=== PATIENT | male | born 1930 | race Caucasian/White ===

== ENCOUNTER 2017-07-24 19:19 | Inpatient (IN) | payer MEDICARE ==
[~2017-07-24] VITALS: Ht 172.7 cm; Wt 68.0 kg
[~2017-07-24 19:19] MED LIST: LEVO75TA42 PO
[2017-07-24 19:21] VITALS: BP 147/67; PULSE 72; RESP 18; TEMP 99.2; O2SAT 96
[2017-07-24] MEDS ORDERED: CLAR10CA3 PO (19:51)
[2017-07-24] MEDS ORDERED: SODIUM CHLORIDE 0.9% FLUSH 10 ML FLUSH IVF PRN (20:00)
--- NOTE | 2017-07-24 20:03 | PD ---
HPI Chief Complaint: Fall Time Seen by Provider: 19:45 Travel History International Travel<30 days: No Contact w/Intl Traveler<30days: No Traveled to known affect area: No History of Present Illness HPI 87-year-old male presents accompanied by his for evaluation after fall. The patient reports that yesterday he was standing on a carpeted floor when he fell backwards and landed on his back and hit his head. No loss of consciousness. He is complaining of very mild pain to the posterior elbows bilaterally as well as left shoulder. He did not really want to come to be evaluated by his convinced him to. His reports that she is concerned because he has been acting confused today. Specifically she reports that he has been more combative, seemed to be having difficulty walking straight, was confusing objects in the house. He appears to be back at baseline now according to the . The patient is denying any confusion, headache, chest pain or shortness of breath, nausea or vomiting, abdominal pain. Reported history includes kyphosis, scoliosis, blepharospasm, squamous cell carcinoma of the skin, no other significant past medical history. No other complaints at this time. [facility] Past Medical History Thyroid Disease: Yes Past Surgical History Abdominal Surgery: Yes (HERNIA) Other Surgery: Yes (SKIN CANCER ) Social History Alcohol Use: No Tobacco Use: No Substance Use: No Allergies-Medications (Allergen,Severity, Reaction): Coded Allergies: No Known Allergies (Unverified , 07/24/17) Reported Meds & Prescriptions Reported Meds & Active Scripts Active Reported Claritin (Loratadine) 10 Mg Cap 10 Mg PO DAILY Review of Systems Except as stated in HPI: all other systems reviewed are Neg Physical Exam Narrative GENERAL: This is an elderly-appearing male who is in no acute distress, answering questions appropriately. SKIN: Warm and dry. HEAD: Atraumatic. Normocephalic. EYES: Pupils equal and round. No scleral icterus. No injection or drainage. ENT: No nasal bleeding or discharge. Mucous membranes pink and moist. NECK: Trachea midline. No JVD. CARDIOVASCULAR: Regular rate and rhythm. No murmur appreciated. RESPIRATORY: No accessory muscle use. Clear to auscultation. Breath sounds equal bilaterally. GASTROINTESTINAL: Abdomen soft, non-tender, nondistended. Hepatic and splenic margins not palpable. MUSCULOSKELETAL: Kyphosis is noted. The patient has no obvious upper or lower extremity strength deficit. He has minor contusions to the posterior elbows. Minor associated tenderness to palpation. NEUROLOGICAL: Awake and alert. No obvious cranial nerve deficits. Motor grossly within normal limits. Normal speech. Data Data Last Documented VS Vital Signs Date Time Temp Pulse Resp B/P (MAP) Pulse Ox O2 Delivery O2 Flow Rate FiO2 07/24/17 21:07 96 Room Air 07/24/17 19:21 99.2 72 18 Orders Orders Electrocardiogram (07/24/17 19:56) Prothrombin Time / Inr (Pt) (07/24/17 19:56) Act Partial Throm Time (Ptt) (07/24/17 19:56) Complete Blood Count With Diff (07/24/17 19:56) Basic Metabolic Panel (Bmp) (07/24/17 19:56) Creatine Kinase (Cpk) (07/24/17 19:56) Troponin I (07/24/17 19:56) Urinalysis - C+S If Indicated (07/24/17 19:56) Ct Brain W/O Iv Contrast(Rout) (07/24/17 19:56) Chest, Single Ap (07/24/17 19:56) Ecg Monitoring (07/24/17 19:56) Iv Access Insert/Monitor (07/24/17 19:56) Oximetry (07/24/17 19:56) Sodium Chloride 0.9% Flush (Ns Flush) (07/24/17 20:00) Elbow, Limited (Ap&Lat) (07/24/17 ) Elbow, Limited (Ap&Lat) (07/24/17 ) Ct Cerv Spine W/O Contrast (07/24/17 ) Spine, Thoracic-Ap/Lat/Sw(3vw) (07/24/17 ) Spine, Lumbar - Ltd (Ap & Lat) (07/24/17 ) Admit Order (Ed Use Only) (07/24/17 21:43) CKMB (07/24/17 20:45) CKMB% (07/24/17 20:45) Labs Laboratory Tests Test 07/24/17 20:45 07/24/17 21:33 White Blood Count 4.9 TH/MM3 Red Blood Count 4.17 MIL/MM3 Hemoglobin 13.6 GM/DL Hematocrit 41.3 % Mean Corpuscular Volume 98.9 FL Mean Corpuscular Hemoglobin 32.7 PG Mean Corpuscular Hemoglobin Concent 33.1 % Red Cell Distribution Width 14.6 % Platelet Count 128 TH/MM3 Mean Platelet Volume 9.1 FL Neutrophils (%) (Auto) 75.4 % Lymphocytes (%) (Auto) 20.2 % Monocytes (%) (Auto) 4.0 % Eosinophils (%) (Auto) 0.1 % Basophils (%) (Auto) 0.3 % Neutrophils # (Auto) 3.7 TH/MM3 Lymphocytes # (Auto) 1.0 TH/MM3 Monocytes # (Auto) 0.2 TH/MM3 Eosinophils # (Auto) 0.0 TH/MM3 Basophils # (Auto) 0.0 TH/MM3 CBC Comment DIFF FINAL Differential Comment Prothrombin Time 11.4 SEC Prothromb Time International Ratio 1.0 RATIO Activated Partial Thromboplast Time 28.7 SEC Blood Urea Nitrogen 23 MG/DL Creatinine 0.84 MG/DL Random Glucose 89 MG/DL Calcium Level 8.4 MG/DL Sodium Level 138 MEQ/L Potassium Level 4.2 MEQ/L Chloride Level 104 MEQ/L Carbon Dioxide Level 27.7 MEQ/L Anion Gap 6 MEQ/L Estimat Glomerular Filtration Rate 87 ML/MIN Total Creatine Kinase 958 U/L Creatine Kinase MB 23.3 NG/ML Creatine Kinase MB % 2.4 % Troponin I LESS THAN 0.02 NG/ML Urine Color YELLOW Urine Turbidity CLEAR Urine pH 6.5 Urine Specific [place] 1.012 Urine Protein NEG mg/dL Urine Glucose (UA) NEG mg/dL Urine Ketones NEG mg/dL Urine Occult Blood NEG Urine Nitrite NEG Urine Bilirubin NEG Urine Urobilinogen LESS THAN 2.0 MG/DL Urine Leukocyte Esterase NEG Urine RBC 1 /hpf Microscopic Urinalysis Comment CATH-CULT NOT IND MDM Medical Decision Making Medical Screen Exam Complete: Yes Emergency Medical Condition: Yes Medical Record Reviewed: Yes Interpretation(s) CT brain reveals CONCLUSION: 1. Diffuse cerebral atrophy. 2. Moderate to severe periventricular and subcortical white matter small vessel ischemic changes bilaterally. 3. No acute infarct, acute hemorrhage, mass effect or extra-axial fluid collections. 4. Chronic right-sided maxillary and ethmoid sinusitis as well as mucosal thickening involving the right frontal sinus. CONCLUSION: 1. Small left apical pneumothorax. 2. Severe left neural foraminal narrowing at C4-5 and moderate bilateral foraminal narrowing at C3-4 and C5-6. 3. Cervical spondylosis from C3 through C6. 4. No acute fracture or prevertebral soft tissue swelling. CONCLUSION: 1. Small left apical pneumothorax measuring 5 mm. 2. Acute fractures involving the lateral aspects of the fifth, sixth and eighth ribs. 3. Cardiomegaly. Differential Diagnosis Closed head injury, intracranial hemorrhage, CVA, TIA, UTI, electrolyte imbalance Narrative Course 87-year-old male presents after mechanical fall yesterday. Today he was acting more confused and off balance according to the although he is now back at baseline. 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 He is currently awake, alert, oriented with no obvious focal neurologic deficits on initial examination. Plan is for basic lab work, x -ray imaging of the elbows, CT of the brain, cervical spine, chest x-ray. The patient was placed on ECG monitoring. X-ray imaging reveals a small left apical pneumothorax and rib fractures on the left side fifth, sixth, eighth ribs. He is not hypoxic or tachypneic. He will remain on pulse oximetry. X-rays of the thoracic and lumbar spine have been added on as well. Lab work reveals CK 958, calcium 8.4, BUN 23, otherwise unremarkable, 1 L of IV fluids have been ordered. Diagnosis Primary Impression: Intermittent confusion Additional Impressions: Pneumothorax Qualified Codes: S27.0XXA - Traumatic pneumothorax, initial encounter Rib fractures Qualified Codes: S22.42XA - Multiple fractures of ribs, left side, initial encounter for closed fracture Admitting Information Admitting Physician Requests: Bonilla Hill Jul 24, 2017 20:03
--- NOTE | 2017-07-24 20:27 | RADRPT ---
EXAM DATE/TIME: 07/24/2017 20:10 [facility] COMPARISON: No previous studies available for comparison. INDICATIONS : Trauma, fall. Patient hit back of head on ground. RADIATION DOSE: 65.73 CTDIvol (mGy) MEDICAL HISTORY : Thyroid disease SURGICAL HISTORY : Hernia ENCOUNTER: Initial ACUITY: 2 days PAIN SCALE: 7/10 LOCATION: Cranial TECHNIQUE: Multiple contiguous axial images were obtained of the head. Using automated exposure control and adj ustment of the mA and/or kV according to patient size, radiation dose was kept as low as reasonably a chievable to obtain optimal diagnostic quality images. DICOM format image data is available electro nically for review and comparison. FINDINGS: Diffuse cerebral atrophy is noted. Moderate to severe periventricular and subcortical white matter s mall vessel ischemic changes are noted bilaterally. There is no acute infarct, acute hemorrhage, mid line shift or extra-axial fluid collections. There is opacification of the right maxillary sinus as well as the right ethmoid air cells and mucosal thickening involving the right frontal sinus. There is also thickening of the wall of the right maxillary sinus. The findings are suggestive of chronic sinusitis on the right. CONCLUSION: 1. Diffuse cerebral atrophy. 2. Moderate to severe periventricular and subcortical white matter small vessel ischemic changes bila terally. 3. No acute infarct, acute hemorrhage, mass effect or extra-axial fluid collections. 4. Chronic right-sided maxillary and ethmoid sinusitis as well as mucosal thickening involving the ri ght frontal sinus. Dinesh Del Toro MD on July 24, 2017 at 20:17 Board Certified Radiologist. This report was verified electronically.
--- NOTE | 2017-07-24 20:46 | RADRPT ---
EXAM DATE/TIME: 07/24/2017 20:21 [facility] COMPARISON: No previous studies available for comparison. INDICATIONS : Right elbow pain post fall. MEDICAL HISTORY : Thyroid disease SURGICAL HISTORY : Hernia repair ENCOUNTER: Initial ACUITY: 2 days PAIN SCORE: 5/10 LOCATION: Right upper extremity FINDINGS: Two view examination of the right elbow demonstrates no joint effusion, fracture or dislocation. Mil d soft tissue swelling is noted. Bony mineralization is normal. CONCLUSION: No acute displaced fracture or dislocation. Mild soft tissue swelling. Dinesh Del Toro MD on July 24, 2017 at 20:44 Board Certified Radiologist. This report was verified electronically.
--- NOTE | 2017-07-24 20:47 | RADRPT ---
EXAM DATE/TIME: 07/24/2017 20:18 [facility] COMPARISON: No previous studies available for comparison. INDICATIONS : Right chest pain post fall. MEDICAL HISTORY : Thyroid disease SURGICAL HISTORY : Hernia repair ENCOUNTER: Initial ACUITY: 2 days PAIN SCORE: 7/10 LOCATION: Right chest FINDINGS: There is a small left apical pneumothorax measuring 5 mm in size. Acute fractures are noted involvin g the lateral aspects of the left fifth, sixth and eighth ribs. The heart is mildly prominent. The l ungs are clear. CONCLUSION: 1. Small left apical pneumothorax measuring 5 mm. 2. Acute fractures involving the lateral aspects of the fifth, sixth and eighth ribs. 3. Cardiomegaly. Dinesh Del Toro MD on July 24, 2017 at 20:41 Board Certified Radiologist. This report was verified electronically.
--- NOTE | 2017-07-24 20:50 | RADRPT ---
EXAM DATE/TIME: 07/24/2017 20:10 [facility] COMPARISON: No previous studies available for comparison. INDICATIONS : Trauma, fall. Patient hit back of head on ground. RADIATION DOSE: 21.51 CTDIvol (mGy) MEDICAL HISTORY : Thyroid SURGICAL HISTORY : Hernia ENCOUNTER: Initial ACUITY: 1 day PAIN SCALE: 0/10 LOCATION: Neck TECHNIQUE: Volumetric scanning of the cervical spine was performed. Multiplanar reconstructions in the sagittal, coronal and oblique axial planes were performed. Using automated exposure control and adjustment o f the mA and/or kV according to patient size, radiation dose was kept as low as reasonably achievable to obtain optimal diagnostic quality images. DICOM format image data is available electronically f or review and comparison. FINDINGS: There is a small left apical pneumothorax. There is no acute fracture or prevertebral soft tissue sw elling within the cervical spine. Cervical spondylosis is noted from C3 through C6. Moderate bilate ral foraminal narrowing is noted at C3-4 predominantly related to diffuse disc osteophyte complex as well as uncovertebral joint spurring. Severe left neural foraminal narrowing is noted at C4-5. Moder ate bilateral foraminal narrowing is also noted at C5-6. No spinal stenosis is noted. The bony rela tionship and alignment between C1 and C2 is well maintained. CONCLUSION: 1. Small left apical pneumothorax. 2. Severe left neural foraminal narrowing at C4-5 and moderate bilateral foraminal narrowing at C3-4 and C5-6. 3. Cervical spondylosis from C3 through C6. 4. No acute fracture or prevertebral soft tissue swelling. Dinesh Del Toro MD on July 24, 2017 at 20:34 Board Certified Radiologist. This report was verified electronically.
--- NOTE | 2017-07-24 20:52 | RADRPT ---
EXAM DATE/TIME: 07/24/2017 20:24 [facility] COMPARISON: ELBOW RIGHT LIMITED (AP & LAT), July 24, 2017, 20:21. INDICATIONS : Left elbow pain post fall. MEDICAL HISTORY : Thyroid disease SURGICAL HISTORY : Hernia repair ENCOUNTER: Initial ACUITY: 2 days PAIN SCORE: 5/10 LOCATION: Left upper extremity FINDINGS: There is no evidence of acute displaced fracture or dislocation. Tiny olecranon spur is noted. Mild soft-tissue swelling is noted. CONCLUSION: 1. No acute displaced fracture or dislocation. 2. Tiny olecranon spur. 3. Mild soft-tissue swelling. Dinesh Del Toro MD on July 24, 2017 at 20:45 Board Certified Radiologist. This report was verified electronically.
[2017-07-24 20:56] LABS: AUTOMATED NEUTROPHIL # 3.7 TH/MM3 (1.8-7.7); BASOPHIL % 0.3 % (0.0-2.0); EOSINOPHIL % 0.1 % (0.0-4.0); HEMATOCRIT 41.3 % (39.0-51.0); HEMO FLAGS DIFF FINAL; LYMPH % 20.2 % (9.0-44.0); MEAN CELL VOLUME 98.9 FL (80.0-100.0); MEAN CORPUSCULAR HEMOGLOBIN 32.7 PG (27.0-34.0); MEAN CORPUSCULAR HGB CONC 33.1 % (32.0-36.0); NEUT % 75.4 % (16.0-70.0); PLATELET COUNT 128 TH/MM3 (150-450); RED BLOOD COUNT 4.17 MIL/MM3 (4.50-5.90); RED CELL DISTRIBUTION WIDTH 14.6 % (11.6-17.2); WHITE BLOOD COUNT 4.9 TH/MM3 (4.0-11.0)
[2017-07-24 21:07] VITALS: O2SAT 96
[2017-07-24 21:13] LABS: BLOOD UREA NITROGEN 23 MG/DL (7-18)
[2017-07-24 21:18] LABS: PROTHROMBIN TIME - PATIENT 11.4 SEC (9.8-11.6)
--- NOTE | 2017-07-24 21:20 | PD ---
Physical Exam Narrative General: The patient is a well-developed, thin appearing male, in no acute distress. Head is normocephalic atraumatic. Eyes: EOMI, pupils are equal round and reactive to light. Nose: Midline septum with pink mucous membranes Mouth: Dentition unremarkable. Moist mucus membranes. Posterior oropharynx is not erythematous. No tonsillar hypertrophy. Uvula midline. Airway patent. Neck: No palpable lymphadenopathy. No nuchal rigidity. No thyromegaly. Cardiovascular: Regular rate and rhythm a 1/6 systolic murmur. No gallops or rubs. Lungs: Clear to auscultation bilaterally. No wheezes, rhonchi, or rales. Abdomen: Soft, without tenderness to palpation in all 4 quadrants of the abdomen. No guarding, rebound, or rigidity. Normal bowel sounds are audible. No tenderness on palpation of McBurney's point. Extremities: No clubbing, cyanosis, or edema. 2+ pulses in all 4 extremities. Back: No spinous process tenderness to palpation. No costovertebral angle tenderness to palpation. The patient on examination of his back has kyphosis, scoliosis noted. No point tenderness on palpation over his spinous processes. The patient has abrasions on his back noted and one area that appears to be a punch biopsy on the right shoulder from recent skin cancer resection. Neurologic Exam: Cranial nerves 2-12 were intact on exam. Strength is 5/5 in all 4 extremities. No sensory deficits noted. Skin Exam: No rash noted. Data Data Last Documented VS Vital Signs Date Time Temp Pulse Resp B/P (MAP) Pulse Ox O2 Delivery O2 Flow Rate FiO2 07/24/17 21:07 96 Room Air 07/24/17 19:21 99.2 72 18 Orders Orders Electrocardiogram (07/24/17 19:56) Prothrombin Time / Inr (Pt) (07/24/17 19:56) Act Partial Throm Time (Ptt) (07/24/17 19:56) Complete Blood Count With Diff (07/24/17 19:56) Basic Metabolic Panel (Bmp) (07/24/17 19:56) Creatine Kinase (Cpk) (07/24/17 19:56) Troponin I (07/24/17 19:56) Urinalysis - C+S If Indicated (07/24/17 19:56) Ct Brain W/O Iv Contrast(Rout) (07/24/17 19:56) Chest, Single Ap (07/24/17 19:56) Ecg Monitoring (07/24/17 19:56) Iv Access Insert/Monitor (07/24/17 19:56) Oximetry (07/24/17 19:56) Sodium Chloride 0.9% Flush (Ns Flush) (07/24/17 20:00) Elbow, Limited (Ap&Lat) (07/24/17 ) Elbow, Limited (Ap&Lat) (07/24/17 ) Ct Cerv Spine W/O Contrast (07/24/17 ) Spine, Thoracic-Ap/Lat/Sw(3vw) (07/24/17 ) Spine, Lumbar - Ltd (Ap & Lat) (07/24/17 ) Admit Order (Ed Use Only) (07/24/17 21:43) CKMB (07/24/17 20:45) CKMB% (07/24/17 20:45) Labs Laboratory Tests Test 07/24/17 20:45 07/24/17 21:33 White Blood Count 4.9 TH/MM3 Red Blood Count 4.17 MIL/MM3 Hemoglobin 13.6 GM/DL Hematocrit 41.3 % Mean Corpuscular Volume 98.9 FL Mean Corpuscular Hemoglobin 32.7 PG Mean Corpuscular Hemoglobin Concent 33.1 % Red Cell Distribution Width 14.6 % Platelet Count 128 TH/MM3 Mean Platelet Volume 9.1 FL Neutrophils (%) (Auto) 75.4 % Lymphocytes (%) (Auto) 20.2 % Monocytes (%) (Auto) 4.0 % Eosinophils (%) (Auto) 0.1 % Basophils (%) (Auto) 0.3 % Neutrophils # (Auto) 3.7 TH/MM3 Lymphocytes # (Auto) 1.0 TH/MM3 Monocytes # (Auto) 0.2 TH/MM3 Eosinophils # (Auto) 0.0 TH/MM3 Basophils # (Auto) 0.0 TH/MM3 CBC Comment DIFF FINAL Differential Comment Prothrombin Time 11.4 SEC Prothromb Time International Ratio 1.0 RATIO Activated Partial Thromboplast Time 28.7 SEC Blood Urea Nitrogen 23 MG/DL Creatinine 0.84 MG/DL Random Glucose 89 MG/DL Calcium Level 8.4 MG/DL Sodium Level 138 MEQ/L Potassium Level 4.2 MEQ/L Chloride Level 104 MEQ/L Carbon Dioxide Level 27.7 MEQ/L Anion Gap 6 MEQ/L Estimat Glomerular Filtration Rate 87 ML/MIN Total Creatine Kinase 958 U/L Creatine Kinase MB 23.3 NG/ML Creatine Kinase MB % 2.4 % Troponin I LESS THAN 0.02 NG/ML Urine Color YELLOW Urine Turbidity CLEAR Urine pH 6.5 Urine Specific [employer] 1.012 Urine Protein NEG mg/dL Urine Glucose (UA) NEG mg/dL Urine Ketones NEG mg/dL Urine Occult Blood NEG Urine Nitrite NEG Urine Bilirubin NEG Urine Urobilinogen LESS THAN 2.0 MG/DL Urine Leukocyte Esterase NEG Urine RBC 1 /hpf Microscopic Urinalysis Comment CATH-CULT NOT IND MDM Medical Record Reviewed: Yes Supervised Visit with VIOLETA: Yes Narrative Course I, Dr. Sharma, have reviewed the advance practice practitioner's documentation and am in agreement, met with the patient face to face, made the diagnosis, and the medical decision making was done by me. The patient was initially seen by Bonilla. Please see his complete history and physical. *My assessment and Findings: The patient is an 87-year-old male who presents to [facility] emergency Department with a history of falling yesterday. The patient was unable to get up off of the floor last night and was found on the floor by his this morning. The patient since the fall has had intermittent bouts of confusion. She reports that he is unsteady on his feet and falls frequently. Unfortunately when his reports this to me the patient becomes angry. He reports that he "does not fall regularly". During the course of the patients emergency department visit, the patients history, examination, and differential diagnosis were reviewed with the patient. The patient had IV access obtained and blood work sent for analysis. The patient an ECG done on arrival that shows a sinus rhythm with occasional ventricular premature complexes with marked rhythm irregularity. No acute ST segment elevation is noted, QRS duration is 122 ms, QTC 410 ms. The patients laboratory studies were reviewed and remarkable for a white count of 4.9, hemoglobin 13.6, platelets 128 with 75.4 neutrophils, basic metabolic profile is remarkable for a BUN of 23, GFR of 87, calcium 8.4, CPK 958, MB percent 2.4, troponin I less than 0.02, PT PTT within normal limits. Urinalysis is unremarkable. Radiology studies were reviewed and remarkable for bilateral elbow x-rays showed no evidence of fracture or dislocation. Mild soft tissue swelling. CT scan of the brain shows diffuse cerebral atrophy, moderate to severe periventricular and subcortical white matter small vessel ischemic changes bilaterally. No acute infarct acute hemorrhage, mass effect or extra-axial fluid collections. CT scan of the C-spine shows small left apical pneumothorax, severe left neural foraminal narrowing at C4-C5 and moderate bilateral foraminal narrowing at C3 4 5 6. Cervical spondylosis from C3 through C6. No acute fracture or prevertebral soft tissue swelling. Chest x -ray shows a tiny left apical pneumothorax measuring 5 mm, acute fractures involving the lateral aspect of the fifth, sixth and 8th ribs. Cardiomegaly is noted. The patients results were discussed with the patient, including the plan of care. I explained that further testing and/ or monitoring is indicated based on the patients history, examination, and/ or laboratory findings. Therefore, I recommended admission for additional evaluation. The patient expressed understanding and was agreeable with this plan. The patient was admitted to the hospital in guarded condition and sent to a bed under the care of the [facility]. Diagnosis Primary Impression: Rib fractures Qualified Codes: S22.42XA - Multiple fractures of ribs, left side, initial encounter for closed fracture Additional Impression: Pneumothorax Qualified Codes: S27.0XXA - Traumatic pneumothorax, initial encounter Admitting Information Admitting Physician Requests: it Ivana Sharma MD Jul 24, 2017 21:20
[2017-07-24 21:33] LABS: ANION GAP 6 MEQ/L (5-15); BICARBONATE 27.7 MEQ/L (21.0-32.0); CHLORIDE 104 MEQ/L (98-107); CREATINE KINASE 958 U/L (39-308); GLOMERULAR FILTRATION RATE 87 ML/MIN (>89); SODIUM (NA) 138 MEQ/L (136-145)
[2017-07-24 21:53] LABS: POTASSIUM 4.2 MEQ/L (3.5-5.1)
[2017-07-24 21:57] LABS: APTT (PATIENT) 28.7 SEC (24.3-30.1)
[2017-07-24 22:00] VITALS: BP 138/82; PULSE 75; RESP 18; O2SAT 98
[2017-07-24] MEDS ORDERED: SODIUM CHLORIDE 0.9% FLUSH 5 ML FLUSH IV FLUSH PRN (22:00)
[2017-07-24 22:01] LABS: BLOOD, URINE NEG (NEG); GLUCOSE,URINE NEG (NEG); KETONE, URINE NEG (NEG); NITRITE,URINE NEG (NEG); PH, URINE 6.5 (5.0-8.5); URINE COLOR YELLOW (YELLW/STRAW)
[2017-07-24 22:02] LABS: COMMENT (UR) CATH-CULT NOT IND; CULTURE IF INDICATED CATH CULTURE NOT IND
[2017-07-24 22:05] LABS: CKMB 23.3 NG/ML (0.5-3.6)
[2017-07-24] MEDS ORDERED: SODIUM CHLOR 0.9% 1000 ML INJ 1,000 ML IV SCH (22:10)
--- NOTE | 2017-07-24 22:38 | HHI.HP ---
HPI Service [facility] Primary Care Physician Frances Daly MD Admission Diagnosis episodic confusion, rib fractures, pneumothorax Diagnoses: (1) Rib fractures (2) Pneumothorax Chief Complaint: Fall at home Travel History International Travel<30 Days: No Contact w/Intl Traveler <30 Da: No Traveled to Known Affected Are: No History of Present Illness Written by Amie Cole, acting as scribe for Dr. Boston on 07/24/17 at 22:38. The patient reports a fall last night. He says he was walking around a piece of exercise equipment at home and became unbalanced momentarily and fell over backwards. He states he had difficulty turning over off his back after the fall - "like a turtle" turned over on his shell. Denies chest pain, syncope, shortness of breath, dizziness, visual problems, or diaphoresis. He denies loss of consciousness and is uncertain if he hit his head upon falling. He was down on the floor overnight. He spent much of the time trying to get himself turned over: he slept a little bit on the floor. Over past two weeks: denies fever, nausea, vomiting, chest pain, shortness of breath, dizziness, dysuria, hematuria, diarrhea, or black or red stool. Review of Systems Except as stated in HPI: all other systems reviewed are Neg Past Family Social History Past Medical History Basal and squamous cell skin CA Radiation to neck 2001 because one of his skin cancers went to a lymph node Blepharospasms Kyphosis Scoliosis Torticollis Denies diabetes mellitus, hypertension, CAD, CHF, atrial fibrillation, COPD, liver problems, kidney problems, DVT, PE, CVA, seizures, thyroid problems, or esophageal stricture. Past Surgical History skin cancers removed - basal and squamous inguinal hernia repair x 2 . Reported Medications Reported Meds & Active Scripts Active Reported Claritin (Loratadine) 10 Mg Cap 10 Mg PO DAILY MVIs . Allergies: Coded Allergies: No Known Allergies (Unverified , 07/24/17) Active Ordered Medications Current Medications Sodium Chloride (NS Flush) 2 ml UNSCH PRN IVF FLUSH AFTER USING IV ACCESS; Start 07/24/17 at 20:00 IV Flush (NS Flush) 2 ml BID IV FLUSH ; Start 07/25/17 at 09:00 IV Flush (NS Flush) 2 ml UNSCH PRN IV FLUSH FLUSH AFTER USING IV ACCESS; Start 07/24/17 at 22:00 Sodium Chloride 1,000 ml @ 1,000 mls/hr Q1H IV ; Start 07/24/17 at 22:10; Stop 07/24/17 at 23:09 . Family History Mother lived to be age 97 Denies any significant family medical history . Social History Tobacco: smoked minimally in his 20's; none since then Alcohol: denies Patient no longer driving . Physical Exam Vital Signs Vital Signs Date Time Temp Pulse Resp B/P (MAP) Pulse Ox O2 Delivery O2 Flow Rate FiO2 07/24/17 21:07 96 Room Air 07/24/17 19:21 99.2 72 18 147/67 (93) 96 Room Air Physical Exam GENERAL: This is a well-nourished, well-developed patient, drowsy but in no apparent distress. SKIN: No rashes. Cool and dry. HEAD: Atraumatic. Normocephalic. EYES: No scleral icterus. No injection or drainage. Wearing protective dark eyewear. ENT: Nose without bleeding, purulent drainage. Airway patent. NECK: Trachea midline. No JVD or lymphadenopathy. Supple, nontender, no meningeal signs. CARDIOVASCULAR: Regular rate and rhythm without murmurs, gallops, or rubs. RESPIRATORY: Clear to auscultation. Breath sounds equal bilaterally. No wheezes , rales, or rhonchi. GASTROINTESTINAL: Abdomen soft, non-tender, nondistended. No guarding. MUSCULOSKELETAL: Extremities without clubbing, cyanosis. No calf tenderness. Chronic left lower extremity swelling, non-pitting. NEUROLOGICAL: Drowsy. Motor and sensory grossly within normal limits. Normal speech. Laboratory Laboratory Tests Test 07/24/17 20:45 07/24/17 21:33 White Blood Count 4.9 Red Blood Count 4.17 Hemoglobin 13.6 Hematocrit 41.3 Mean Corpuscular Volume 98.9 Mean Corpuscular Hemoglobin 32.7 Mean Corpuscular Hemoglobin Concent 33.1 Red Cell Distribution Width 14.6 Platelet Count 128 Mean Platelet Volume 9.1 Neutrophils (%) (Auto) 75.4 Lymphocytes (%) (Auto) 20.2 Monocytes (%) (Auto) 4.0 Eosinophils (%) (Auto) 0.1 Basophils (%) (Auto) 0.3 Neutrophils # (Auto) 3.7 Lymphocytes # (Auto) 1.0 Monocytes # (Auto) 0.2 Eosinophils # (Auto) 0.0 Basophils # (Auto) 0.0 CBC Comment DIFF FINAL Differential Comment Prothrombin Time 11.4 Prothromb Time International Ratio 1.0 Activated Partial Thromboplast Time 28.7 Blood Urea Nitrogen 23 Creatinine 0.84 Random Glucose 89 Calcium Level 8.4 Sodium Level 138 Potassium Level 4.2 Chloride Level 104 Carbon Dioxide Level 27.7 Anion Gap 6 Estimat Glomerular Filtration Rate 87 Total Creatine Kinase 958 Creatine Kinase MB 23.3 Creatine Kinase MB % 2.4 Troponin I LESS THAN 0.02 Urine Color YELLOW Urine Turbidity CLEAR Urine pH 6.5 Urine Specific [place] 1.012 Urine Protein NEG Urine Glucose (UA) NEG Urine Ketones NEG Urine Occult Blood NEG Urine Nitrite NEG Urine Bilirubin NEG Urine Urobilinogen LESS THAN 2.0 Urine Leukocyte Esterase NEG Urine RBC 1 Microscopic Urinalysis Comment CATH-CULT NOT IND Result Diagram: 07/24/17204407/24/172044 Imaging Last Impressions Head CT 07/24/171955 Signed Impressions: Service Date/Time: Monday, July 24, 2017 20:10 - CONCLUSION: 1. Diffuse cerebral atrophy. 2. Moderate to severe periventricular and subcortical white matter small vessel ischemic changes bilaterally. 3. No acute infarct, acute hemorrhage, mass effect or extra-axial fluid collections. 4. Chronic right- sided maxillary and ethmoid sinusitis as well as mucosal thickening involving the right frontal sinus. Dinesh Del Toro MD Chest X-Ray 07/24/171955 Signed Impressions: Service Date/Time: Monday, July 24, 2017 20:18 - CONCLUSION: 1. Small left apical pneumothorax measuring 5 mm. 2. Acute fractures involving the lateral aspects of the fifth, sixth and eighth ribs. 3. Cardiomegaly. Dinesh Del Toro MD Elbow X-Ray 07/24/17 0000 Signed Impressions: Service Date/Time: Monday, July 24, 2017 20:21 - CONCLUSION: No acute displaced fracture or dislocation. Mild soft tissue swelling. Dinesh Del Toro MD Cervical Spine CT 07/24/17 0000 Signed Impressions: Service Date/Time: Monday, July 24, 2017 20:10 - CONCLUSION: 1. Small left apical pneumothorax. 2. Severe left neural foraminal narrowing at C4-5 and moderate bilateral foraminal narrowing at C3-4 and C5-6. 3. Cervical spondylosis from C3 through C6. 4. No acute fracture or prevertebral soft tissue swelling. MD Precious Valenciai VTE Risk Assessment Caprini VTE Risk Assessment: Mod/High Risk (score >= 2) Caprini Risk Assessment Model Point Value = 1 Point Value = 2 Point Value = 3 Point Value = 5 Age 41-60 Minor surgery BMI > 25 kg/m2 Swollen legs Varicose veins or History of unexplained or recurrent spontaneous Oral contraceptives or hormone replacement Sepsis (< 1 month) Serious lung disease, including pneumonia (< 1 month) Abnormal pulmonary function Acute myocardial infarction Congestive heart failure (< 1 month) History of inflammatory bowel disease Medical patient at bed rest Age 61-74 Arthroscopic surgery Major open surgery (> 45 min) Laparoscopic surgery (> 45 min) Malignancy Confined to bed (> 72 hours) Immobilizing plaster cast Central venous access Age >= 75 History of VTE Family history of VTE Factor V Leiden Prothrombin [id number] Lupus anticoagulant Anticardiolipin antibodies Elevated serum homocysteine Heparin-induced thrombocytopenia Other congenital or acquired thrombophilia Stroke (< 1 month) Elective arthroplasty Hip, pelvis, or leg fracture Acute spinal cord injury (< 1 month) Prophylaxis Regimen Total Risk Factor Score Risk Level Prophylaxis Regimen 0-1 Low Early ambulation 2 Moderate Order ONE of the following: *Sequential Compression Device (SCD) *Heparin 5000 units SQ BID 3-4 Higher Order ONE of the following medications: *Heparin 5000 units SQ TID *Enoxaparin/Lovenox 40 mg SQ daily (WT < 150 kg, CrCl > 30 mL/min) *Enoxaparin/Lovenox 30 mg SQ daily (WT < 150 kg, CrCl > 10-29 mL/min) *Enoxaparin/Lovenox 30 mg SQ BID (WT < 150 kg, CrCl > 30 mL/min) AND/OR *Sequential Compression Device (SCD) 5 or more Highest Order ONE of the following medications: *Heparin 5000 units SQ TID (Preferred with Epidurals) *Enoxaparin/Lovenox 40 mg SQ daily (WT < 150 kg, CrCl > 30 mL/min) *Enoxaparin/Lovenox 30 mg SQ daily (WT < 150 kg, CrCl > 10-29 mL/min) *Enoxaparin/Lovenox 30 mg SQ BID (WT < 150 kg, CrCl > 30 mL/min) AND *Sequential Compression Device (SCD) Assessment and Plan Problem List: (1) Rib fractures ICD Code: S22.39XA - Fracture of one rib, unspecified side, initial encounter for closed fracture Status: Acute (2) Pneumothorax ICD Code: J93.9 - Pneumothorax, unspecified Status: Acute (3) Intermittent confusion ICD Code: R41.0 - Disorientation, unspecified Status: Acute Assessment and Plan 87 y/o male presents following fall at home: Intermittent confusion r/o TIA - NIH stroke scale daily - Frequent neuro checks - NPO until bedside swallowing evaluation completed by nursing - OT, ST, PT - consult neurology - MRI and MRA of brain - carotid ultrasound to r/o carotid artery stenosis - lipid profile to r/o hyperlipidemia - HgA1C to r/o diabetes mellitus - echocardiogram to evaluate cardiac structure and function Rib fractures with small apical pneumothorax - oxygen saturation 96% on room air, patient demonstrates no respiratory distress - should resolve on it's own Elevated creatinine kinase - TCK 958 - encourage p.o. fluids - recheck in a.m. and follow results. DVT prophylaxis - Lovenox 40 mg subq qd This note was transcribed by nano [Amie Cole]. I, Dr. Felicia Boston personally performed the history, physical exam, and medical decision making; and confirmed the accuracy of the information in the transcribed note. Authenticated by Dr. Felicia Boston on 07/24/17 at 22:38. Discussed Condition With Patient and ER physician . Problem Qualifiers (1) Rib fractures: Qualified Codes: S22.42XA - Multiple fractures of ribs, left side, initial encounter for closed fracture (2) Pneumothorax: Qualified Codes: S27.0XXA - Traumatic pneumothorax, initial encounter Amie Cole Jul 24, 2017 22:38 Felicia Boston MD Jul 25, 2017 06:10
--- NOTE | 2017-07-24 22:38 | RADRPT ---
EXAM DATE/TIME: 07/24/2017 22:00 [facility] COMPARISON: No previous studies available for comparison. INDICATIONS : Lower back pain. Post fall. MEDICAL HISTORY : Venous insufficiency. Thyroid disease. SURGICAL HISTORY : Hernia repair. ENCOUNTER: Initial ACUITY: 1 day PAIN SCORE: 6/10 LOCATION: Lumbar spine. FINDINGS: Severe compression deformity involving L2 is noted. Mild compression deformity involving L5 is also noted. The ages of these compression fractures are indeterminate. Degenerative changes and scoliosi s of the lumbar spine are noted. CONCLUSION: 1. Severe compression deformity involving L2 and mild compression deformity involving L5 of indetermi maynor ages. 2. Degenerative changes and scoliosis of the lumbar spine. Dinesh Del Toro MD on July 24, 2017 at 22:30 Board Certified Radiologist. This report was verified electronically.
--- NOTE | 2017-07-24 22:38 | RADRPT ---
EXAM DATE/TIME: 07/24/2017 22:00 [facility] COMPARISON: No previous studies available for comparison. INDICATIONS : Back pain post fall. MEDICAL HISTORY : Thyroid disease. SURGICAL HISTORY : Hernia repair. ENCOUNTER: Initial ACUITY: 1 day PAIN SCORE: 7/10 LOCATION: Thoracic spine. FINDINGS: Degenerative changes and scoliosis of the thoracolumbar spine are noted. Moderate to severe compress ion deformity involving T7 is noted and is indeterminate in age. Kyphosis of the thoracic spine is n oted. CONCLUSION: 1. Moderate to severe compression deformity involving T7 of indeterminate age. 2. Degenerative changes and scoliosis of the thoracolumbar spine. 3. Kyphosis of the thoracic spine. Dinesh Del Toro MD on July 24, 2017 at 22:29 Board Certified Radiologist. This report was verified electronically.
--- NOTE | 2017-07-24 23:03 | RADRPT ---
EXAM DATE/TIME: 07/24/2017 22:32 [facility] COMPARISON: No previous studies available for comparison. INDICATIONS : Transient ischemic attack. MEDICAL HISTORY : Thyroid disease. Hernia. Skin cancer. SURGICAL HISTORY : Hernia repair. Skin cancer removal. ENCOUNTER: Initial ACUITY: 1 day PAIN SCORE: 2/10 LOCATION: Bilateral neck PEAK SYSTOLIC VELOCITIES (cm/sec): ICA/CCA RATIO: Right: 1.7 Left: 1.3 ICA: Right: 91.9 Left: 90.1 CCA: Right: 53.1 Left: 70.9 ECA: Right: 262.9 Left: 180.0 VERTEBRAL: Right: 33.9 antegrade Left: 66.8 antegrade Elevated flow velocities and ICA/CCA ratios have been found to correlate with increased degrees of vessel stenosis, calculated as percentage of diameter relative to a normal segment of distal ICA/CCA FINDINGS: RIGHT CAROTID: Calcified atherosclerotic plaque involving the carotid bulb and extending into the origin of the ICA and ECA. Approximately 50% stenosis by Lugo scale analysis. The waveforms are within normal limits. LEFT CAROTID: Calcified atherosclerotic plaque scattered throughout the common carotid artery and proximal ICA as w ell as ECA. Less than 50% luminal narrowing by grayscale analysis. The waveforms are within normal li mits. VERTEBRAL ARTERIES: Antegrade flow is seen in both vertebral arteries. MISCELLANEOUS: None. CONCLUSION: 1. Diffuse calcified atherosclerotic plaque with approximate 50% stenosis involving the right ICA bridger gin and less than 50% stenosis on the left. 2. Antegrade flow involving both vertebral arteries. Gerald Allison Jr., MD on July 24, 2017 at 22:58 Board Certified Radiologist. This report was verified electronically.
[2017-07-25] VITALS (14 sets, daily range): BP systolic 106–157; BP diastolic 48–86; PULSE 56–92; RESP 16–19; TEMP 96–98.7; O2SAT 93–98
[2017-07-25] MEDS: ENOXAPARIN SODIUM 40 MG/0.4 ML SYRINGE SQ SCH ×2 (01:12→23:19)
[2017-07-25 07:16] LABS: HDL CHOLESTEROL 31.6 MG/DL (40.0-60.0); LDL CHOLESTEROL 41 MG/DL (0-99)
[2017-07-25] MEDS: SODIUM CHLORIDE 0.9% FLUSH 5 ML FLUSH IV FLUSH SCH ×2 (08:50→20:49)
--- NOTE | 2017-07-25 11:58 | HHI.PR ---
Subjective Remarks Physical therapy performed today. Patient is ambulating well. Pain is still present but controlled. Further monitoring due to patient's age, small pneumothorax, rib fractures, and rhabdomyolysis. Objective Vital Signs Date Time Temp Pulse Resp B/P (MAP) Pulse Ox O2 Delivery O2 Flow Rate FiO2 07/25/17 08:00 96.8 63 18 138/69 (92) 95 07/25/17 05:40 98.7 58 19 133/62 (85) 96 07/25/17 03:40 97.1 74 19 106/56 (73) 96 07/25/17 01:54 07/25/17 01:40 97.3 65 19 106/48 (67) 97 07/25/17 00:20 70 16 142/86 (104) 98 Nasal Cannula 1.00 07/24/17 22:00 75 18 138/82 (100) 98 Nasal Cannula 1.00 07/24/17 21:07 96 Room Air 07/24/17 19:21 99.2 72 18 147/67 (93) 96 Room Air I/O 07/24/17 07/24/17 07/24/17 07/25/17 07/25/17 07/25/17 07:00 15:00 23:00 07:00 15:00 23:00 Intake Total 0 ml Output Total 200 ml 200 ml Balance -200 ml -200 ml Intake Oral 0 ml Output Urine Total 200 ml 200 ml # Voids 2 # Bowel Movements 0 Result Diagram: 07/24/17204407/24/172044 Objective Remarks GENERAL: NAD, A&Ox3 HEAD: Normocephalic. NECK: Supple, trachea midline. No lymphadenopathy. EYES: No scleral icterus. No injection or drainage. CARDIOVASCULAR: Regular rate and rhythm without murmurs, gallops, or rubs. RESPIRATORY: Breath sounds equal bilaterally. No accessory muscle use. GASTROINTESTINAL: Abdomen soft, non-tender, nondistended. MUSCULOSKELETAL: No cyanosis, or edema. SKIN: Warm and dry. NEURO: No focal neurological deficitis. A/P Problem List: (1) Rib fractures ICD Code: S22.39XA - Fracture of one rib, unspecified side, initial encounter for closed fracture Status: Acute (2) Pneumothorax ICD Code: J93.9 - Pneumothorax, unspecified Status: Acute (3) Intermittent confusion ICD Code: R41.0 - Disorientation, unspecified Status: Acute (4) Rhabdomyolysis ICD Code: M62.82 - Rhabdomyolysis Assessment and Plan Assessment and Plan 87 y/o male presents following fall at home, admitted with rhabdomyolysis, rib fractures, pneumothorax, and transient confusion. Possible TIA No recurrence of symptoms of confusion or other strokelike symptoms Continue OT, ST, PT Neurology following MRA and MRI of the brain are pending Carotid ultrasound pending Echocardiogram pending Rhabdomyolysis Continue to follow total creatinine kinase Pneumothorax Repeat chest x-ray tomorrow Respiratory status appears stable currently DVT prophylaxis Lovenox 40 mg subq qd Problem Qualifiers (1) Rib fractures: Qualified Codes: S22.42XA - Multiple fractures of ribs, left side, initial encounter for closed fracture (2) Pneumothorax: Qualified Codes: S27.0XXA - Traumatic pneumothorax, initial encounter Joey Nunez MD Jul 25, 2017 11:58
[2017-07-25] MEDS: MAGNESIUM HYDROXIDE SUSP 30 ML CUP PO PRN (15:18)
--- NOTE | 2017-07-25 15:56 | RADRPT ---
EXAM DATE/TIME: 07/25/2017 13:48 [facility] COMPARISON: No previous studies available for comparison. INDICATIONS : CVA. Fall. Hemorrhage. MEDICAL HISTORY : Osteoporosis. SURGICAL HISTORY : Umbilical hernia repair. ENCOUNTER: Subsequent ACUITY: 2 day PAIN SCORE: 0/10 LOCATION: head. TECHNIQUE: Multiplanar, multisequence MRI of the brain was performed without contrast. FINDINGS: CEREBRUM: Cerebral atrophy. The ventricles are normal for age. No evidence of midline shift, mass lesion, hemo rrhage or acute infarction. No extraaxial fluid collections are seen. The pituitary gland and supra sellar cistern are normal in configuration. WHITE MATTER: Areas of high T2 bright signal abnormalities are seen in the periventricular white matter. POSTERIOR FOSSA: The cerebellum and brainstem are intact. The 4th ventricle is midline. The cerebellopontine angle is unremarkable. The cerebellar tonsils are normal in position. DIFFUSION IMAGING: No focal areas of restricted diffusion are seen. No evidence of acute infarction. Opacification righ t maxillary sinus. T2 signal abnormality right mastoid air cells. EXTRACRANIAL: The visualized portions of the orbits and paranasal sinuses are unremarkable. CONCLUSION: 1. 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 2. No acute infarction. 3. Chronic right maxillary sinusitis. Fernando Galan MD on July 25, 2017 at 15:52 Board Certified Radiologist. This report was verified electronically.
[2017-07-25 16:22] LABS: HEMOGLOBIN A1a 0.8 %; HEMOGLOBIN A1b 1.7 %; HEMOGLOBIN Ao 86.4 %; HEMOGLOBIN LA1C 1.9 %; HEMOGLOBIN P3 3.7 %
--- NOTE | 2017-07-25 17:07 | ECHRPT ---
Indication: tia vs cva CONCLUSIONS Normal left ventricular size. Mild concentric left ventricular hypertrophy. The left ventricular systolic function is low normal with an estimated ejection fraction of 50%. Mitral annular calcification is present. [id number]-[id number] aortic valve regurgitation. The estimated pulmonary arterial pressure is 32 mmHg. There is a trivial pericardial effusion present. BP: 106 / 56 HR: 74 Rhythm: MEASUREMENTS (Male / Female) Normal Values Technical Quality:Technically difficult study 2D ECHO LV Diastolic Diameter PLAX 4.1 cm 4.2 - 5.9 / 3.9 - 5.3 cm LV Systolic Diameter PLAX 3.2 cm IVS Diastolic Thickness 1.5 cm 0.6 - 1.0 / 0.6 - 0.9 cm LVPW Diastolic Thickness 0.6 cm 0.6 - 1.0 / 0.6 - 0.9 cm LV Relative Wall Thickness 0.5 RV Internal Dim ED PLAX 2.3 cm LA Systolic Diameter LX 4.0 cm 3.0 - 4.0 / 2.7 - 3.8 cm M-MODE Aortic Root Diameter MM 3.8 cm AV Cusp Separation MM 1.9 cm DOPPLER AV Peak Velocity 137.0 cm/s AV Peak Gradient 7.5 mmHg LVOT Peak Velocity 53.8 cm/s LVOT Peak Gradient 1.2 mmHg Mitral E Point Velocity 53.3 cm/s Mitral A Point Velocity 48.4 cm/s Mitral E to A Ratio 1.1 TR Peak Velocity 233.0 cm/s TR Peak Gradient 21.7 mmHg Right Atrial Pressure 10.0 mmHg Pulmonary Artery Systolic Pressu 31.7 mmHg Right Ventricular Systolic Press 31.7 mmHg FINDINGS LEFT VENTRICLE Normal left ventricular size. Mild concentric left ventricular hypertrophy. The left ventricular systolic function is low normal with an estimated ejection fraction of 50%. RIGHT VENTRICLE The right ventricle was not well visualized. LEFT ATRIUM The left atrial size is normal. RIGHT ATRIUM The right atrial size is normal. ATRIAL SEPTUM Normal atrial septal thickness without atrial level shunting by limited color doppler interrogation. AORTA The aortic root and proximal ascending aorta are normal in size on limited imaging. MITRAL VALVE Mitral annular calcification is present. AORTIC VALVE [id number]-[id number] aortic valve regurgitation. TRICUSPID VALVE The tricuspid valve is not well visualized. The estimated pulmonary arterial pressure is 32 mmHg. PULMONARY VALVE No pulmonary valve regurgitation or stenosis. VESSELS The inferior vena cava is normal in size. PERICARDIUM There is a trivial pericardial effusion present. Gerson Brothers MD, FACC (Electronically Signed) Final Date:25 July 2017 17:06
--- NOTE | 2017-07-25 17:52 | RADRPT ---
EXAM DATE/TIME: 07/25/2017 13:48 [facility] COMPARISON: MRI BRAIN W/O CONTRAST, July 25, 2017, 13:48. INDICATIONS : CVA. Fall. Hemorrhage. MEDICAL HISTORY : Osteoporosis. SURGICAL HISTORY : Umbilical hernia repair. ENCOUNTER: Subsequent ACUITY: 2 day PAIN SCORE: 0/10 LOCATION: head. Please note a normal MRA of the brain does not entirely exclude the possibility of a small aneurysm, nor the possibility of distal intracranial vessel disease. TECHNIQUE: 3D time of flight MRA was performed. Source images, multiplanar STS MIP, and 3D volume MIP reconstru ctions were reviewed. FINDINGS: The right posterior cerebral artery arises from the anterior situation. There is no major branch ves idania occlusion. CONCLUSION: No major branch vessel occlusion. Josemanuel Leo MD FACR on July 25, 2017 at 17:50 Board Certified Radiologist. This report was verified electronically.
[2017-07-25] MEDS: DOCUSATE SODIUM 100 MG CAP PO SCH (20:49)
--- NOTE | 2017-07-25 20:50 | EKG ---
Date Performed: 07/24/2017 Time Performed: 21:06:31 PTAGE: 87 years EKG: Sinus rhythm WITH OCCASIONAL VENTRICULAR PREMATURE COMPLEXES WITH MARKED RHYTHM IRREGULARITY, POSSIBLE NON-CONDUC SASCHA PAC, SA BLOCK, AV BLOCK, OR SINUS PAUSE LEFT ANTERIOR FASCICULAR BLOCK SEPTAL MYOCARDIAL INFARCTI ON ABNORMAL ECG PREVIOUS TRACING : 11/21/2001 09.53 Compared to prior tracing no significant change DOCTOR: Silvestre Mclean Interpretating Date/Time 07/25/2017 20:46:03
--- NOTE | 2017-07-25 23:51 | MB ---
cc: POP AGUIAR MD DATE OF CONSULTATION: 07/25/2017 REASON FOR CONSULTATION: Possible TIA, confusion. HISTORY OF PRESENT ILLNESS Mr. Ac is an 87-year-old male who presented to the [facility] after a fall last night. He states that he was in the gym working on furniture, and he got stuck with a piece of exercise equipment. He became unbalanced, fell backwards and he had difficulty turning of his back and he states, "I fell like a turtle, and was not able to move." He did not have his cell phone on him. He states that he was there overnight. He reports that he slept for a brief time. He denies headache, blurred vision, double vision, weakness of an extremity, denies history of stroke or TIA. REVIEW OF SYSTEMS A 12-point review of systems is negative except for what is stated in the HPI. PAST MEDICAL HISTORY Basal and squamous cell carcinoma, left spasm, kyphosis, scoliosis, torticollis. PAST SURGICAL HISTORY Skin cancer removal, inguinal hernia repair, neck radiation for skin cancer. MEDICATIONS Clonidine. ALLERGIES No known allergies. FAMILY HISTORY Mother lived to age 97. No significant family history. SOCIAL HISTORY Smoked minimally in his 20s, none since then. Denies alcohol or illicit drug use. PHYSICAL EXAMINATION: General: Awake, frail, good historian, sits in bed in a kyphotic posture with bruises in upper and lower extremities. HEENT: Atraumatic, normocephalic. Intact hearing and vision. Neck: Kyphotic neck, tenderness along the neck with no signs of irritation. Cardiovascular: Regular rate and rhythm. Respiratory: Clear to auscultation. No wheezes. Gastrointestinal: Soft, nontender Extremities: Without clubbing, cyanosis, chronic left lower extremity swelling Neurologic: Awake, alert, oriented to time, person and place. Cranial nerves II-XII are grossly intact. Left upper extremity unable to assess motor function because of fracture and limitation of movement, essentially he moves other extremities. Intact sensation. Normal reflexes. Intact cerebellar function but for inability to perform left [id number] test. Psychological: Calm, cooperative. No hallucination. LABORATORY DATA White BC 4.9, hemoglobin 13.6, platelet count 128, sodium 138, potassium 4.2, BUN 23, creatinine 0.84, total CK 958, calcium 8.4. INR 1. DIAGNOSTIC IMAGING Extensive diagnostic imaging was done. - Cervical spine CT without contrast revealed small apical pneumothorax, severe left neuroforaminal narrowing at C4- C5, moderate bilateral foraminal narrowing at C3-C4 and C5-C6. Cervical spondylosis from C3-C6. No acute fracture. - Carotid artery ultrasound revealed diffuse calcific atherosclerotic plaque with approximately 50% stenosis involving right ICA origin and less than 50% stenosis on the left antegrade flow involving both vertebral arteries. - Head MRA without contrast revealed no major branch vessel occlusion. - Brain MRI without contrast revealed cerebral IC and chronic ischemic small vessel vasculopathy, no acute infarction, chronic right maxillary sinus. DIAGNOSTIC IMPRESSION: - Encephalopathy, resolving. - Admitted to rule out TIA versus stroke. Examination is nonfocal and neuro imaging did not reveal acute intracranial pathology. - Fall likely accident and mechanical. - Rib fracture with small apical pneumothorax, secondary to fall. - Rhabdomyolysis. - Cervical degenerative disk disease with neural foraminal narrowing. - Kyphoscoliosis. PLAN 1. Neuro checks q4 hourly. 2. No need for further neurologic workup at this point. 3. Continue supportive medical therapy. 4. Fall precautions. 5. PT/OT recommendations are appreciated. 6. DVT prophylaxis. Thank you for the opportunity to participate in care of your patient. MD EDGAR [place]/ABY /10:07 PM /11:02 PM TITO
[2017-07-26] VITALS (8 sets, daily range): BP systolic 110–148; BP diastolic 60–75; PULSE 55–76; RESP 16–19; TEMP 96–97.6; O2SAT 94–97
[2017-07-26 07:08] LABS: AUTOMATED NEUTROPHIL # 2.5 TH/MM3 (1.8-7.7); BASOPHIL % 0.4 % (0.0-2.0); EOSINOPHIL # 0.1 TH/MM3 (0-0.4); EOSINOPHIL % 1.9 % (0.0-4.0); HEMATOCRIT 36.1 % (39.0-51.0); HEMO FLAGS DIFF FINAL; LYMPH % 27.9 % (9.0-44.0); LYMPHOCYTE # 1.1 TH/MM3 (1.0-4.8); MEAN CELL VOLUME 98.9 FL (80.0-100.0); MEAN CORPUSCULAR HEMOGLOBIN 33.3 PG (27.0-34.0); MEAN CORPUSCULAR HGB CONC 33.7 % (32.0-36.0); MONO % 3.9 % (0.0-8.0); NEUT % 65.9 % (16.0-70.0); PLATELET COUNT 127 TH/MM3 (150-450); RED BLOOD COUNT 3.65 MIL/MM3 (4.50-5.90); RED CELL DISTRIBUTION WIDTH 14.7 % (11.6-17.2); WHITE BLOOD COUNT 3.8 TH/MM3 (4.0-11.0)
[2017-07-26 07:26] LABS: ALT (GPT) 26 U/L (12-78); ANION GAP 2 MEQ/L (5-15); AST (GOT) 33 U/L (15-37); BICARBONATE 34.1 MEQ/L (21.0-32.0); BLOOD UREA NITROGEN 16 MG/DL (7-18); CHLORIDE 105 MEQ/L (98-107); GLOMERULAR FILTRATION RATE 105 ML/MIN (>89); POTASSIUM 4.1 MEQ/L (3.5-5.1); SODIUM (NA) 141 MEQ/L (136-145)
[2017-07-26 07:27] LABS: ALKALINE PHOSPHATASE 93 U/L (45-117); CREATINE KINASE 335 U/L (39-308); TOTAL BILIRUBIN ADULT 0.4 MG/DL (0.2-1.0)
[2017-07-26 07:58] LABS: CKMB 6.6 NG/ML (0.5-3.6)
[2017-07-26] MEDS: SODIUM CHLORIDE 0.9% FLUSH 5 ML FLUSH IV FLUSH SCH ×2 (09:00→20:08)
--- NOTE | 2017-07-26 09:27 | RADRPT ---
EXAM DATE/TIME: 07/26/2017 08:44 [place] COMPARISON: CHEST SINGLE AP, July 24, 2017, 20:18. INDICATIONS : Difficulty breathing. Evaluate for pneumothorax. MEDICAL HISTORY : Osteoporosis. SURGICAL HISTORY : Umbilical hernia repair. ENCOUNTER: Subsequent ACUITY: 3 days PAIN SCORE: 0/10 LOCATION: Bilateral chest FINDINGS: Compare July 24. There is a tiny left apical pneumothorax, unchanged from July 24. Mild bas ilar airspace disease present with small effusions. No right pneumothorax. CONCLUSION: 1. Stable small left-sided pneumothorax since July 24. Slight increase in basilar airspace disea se and pleural effusion. Cedric Hardin MD on July 26, 2017 at 9:24 Board Certified Radiologist. This report was verified electronically.
[2017-07-26] MEDS: DOCUSATE SODIUM 100 MG CAP PO SCH ×2 (09:48→20:08)
[2017-07-26] MEDS ORDERED: MAGNESIUM CITRATE SOLN 300 ML BTL PO PRN (16:30)
[2017-07-26] MEDS ORDERED: GLYCERIN ADULT 2 GM SUPP RECTAL ONE (16:30)
--- NOTE | 2017-07-26 16:53 | HHI.PR ---
Subjective Remarks Patient is not yet ambulatory. He is exhibiting some unrealistic expectations. Situation discussed with his and she reports that she's been unsteady on his feet for some time and has had mood changes. She suspects there may be dementia and requests a formal evaluation. Chest x-ray today shows stability of pneumothorax without any signs of worsening. Objective Vital Signs Date Time Temp Pulse Resp B/P (MAP) Pulse Ox O2 Delivery O2 Flow Rate FiO2 07/26/17 08:00 96.9 55 18 148/75 (99) 96 07/26/17 05:30 97.0 63 16 136/69 (91) 97 07/26/17 01:30 97.4 66 16 134/60 (84) 95 07/25/17 23:30 97.8 69 17 120/62 (81) 93 07/25/17 23:00 69 07/25/17 21:30 97.6 71 16 157/70 (99) 95 07/25/17 20:00 87 07/25/17 19:30 97.6 61 16 143/67 (92) 97 07/25/17 19:30 97.6 61 16 143/67 (92) 97 I/O 07/25/17 07/25/17 07/25/17 07/26/17 07/26/17 07/26/17 07:00 15:00 23:00 07:00 15:00 23:00 Intake Total 0 ml 520 ml 1480 ml 480 ml Output Total 200 ml 800 ml 680 ml 690 ml Balance -200 ml -280 ml 800 ml -210 ml Intake Oral 0 ml 520 ml 480 ml 480 ml IV Total 1000 ml Output Urine Total 200 ml 800 ml 680 ml 690 ml # Voids 2 2 # Bowel Movements 0 0 0 0 Result Diagram: 07/26/17 0556 07/26/17 0556 Objective Remarks GENERAL: NAD, A&Ox2 HEAD: Normocephalic. NECK: Supple, trachea midline. No lymphadenopathy. EYES: No scleral icterus. No injection or drainage. CARDIOVASCULAR: Regular rate and rhythm without murmurs, gallops, or rubs. RESPIRATORY: Breath sounds equal bilaterally. No accessory muscle use. GASTROINTESTINAL: Abdomen soft, non-tender, nondistended. MUSCULOSKELETAL: No cyanosis, or edema. SKIN: Warm and dry. NEURO: No focal neurological deficitis. A/P Problem List: (1) Rib fractures ICD Code: S22.39XA - Fracture of one rib, unspecified side, initial encounter for closed fracture Status: Acute (2) Pneumothorax ICD Code: J93.9 - Pneumothorax, unspecified Status: Acute (3) Intermittent confusion ICD Code: R41.0 - Disorientation, unspecified Status: Acute (4) Rhabdomyolysis ICD Code: M62.82 - Rhabdomyolysis Assessment and Plan Assessment and Plan 87 y/o male presents following fall at home, admitted with rhabdomyolysis, rib fractures, pneumothorax, and transient confusion. Poor ambulation. Possible halfway facility at discharge. is concerned for possible dementia. Neuropsych consult. Start Incentive spirometry. Add occupational therapy evaluation to physical therapy. Continue physical therapy. Possible TIA No recurrence of symptoms of confusion or other strokelike symptoms Continue OT, ST, PT Neurology following MRA and MRI of the brain are pending Carotid ultrasound pending Echocardiogram pending Rhabdomyolysis Continue to follow total creatinine kinase Pneumothorax Repeat chest x-ray tomorrow Respiratory status appears stable currently DVT prophylaxis Lovenox 40 mg subq qd Problem Qualifiers (1) Rib fractures: Qualified Codes: S22.42XA - Multiple fractures of ribs, left side, initial encounter for closed fracture (2) Pneumothorax: Qualified Codes: S27.0XXA - Traumatic pneumothorax, initial encounter Joey Nunez MD Jul 26, 2017 16:53
[2017-07-26] MEDS: ENOXAPARIN SODIUM 40 MG/0.4 ML SYRINGE SQ SCH (23:54)
[2017-07-27] VITALS: BP 149/72; PULSE 68; RESP 17; TEMP 97; O2SAT 95
[2017-07-27 04:00] VITALS: BP 179/63; PULSE 60; RESP 15; TEMP 96; O2SAT 97
[2017-07-27 08:00] VITALS: BP 185/80; PULSE 60; RESP 18; TEMP 96.8; O2SAT 98
[2017-07-27] MEDS: SODIUM CHLORIDE 0.9% FLUSH 5 ML FLUSH IV FLUSH SCH ×2 (09:00→21:39)
[2017-07-27] MEDS: DOCUSATE SODIUM 100 MG CAP PO SCH ×2 (10:08→21:40)
[2017-07-27] MEDS: MAGNESIUM HYDROXIDE SUSP 30 ML CUP PO PRN (10:12)
[2017-07-27 12:00] VITALS: BP 155/73; PULSE 57; RESP 18; TEMP 96.6; O2SAT 96
--- NOTE | 2017-07-27 13:39 | HHI.PR ---
Subjective Remarks Patient reports he is walking fine. He is not walking fine. He still needs assistance to walk. He is hoping to discharge home with a walker. detention facility is recommended. Psychiatry evaluation pending. Objective Vital Signs Date Time Temp Pulse Resp B/P (MAP) Pulse Ox O2 Delivery O2 Flow Rate FiO2 07/27/17 08:00 96.8 60 18 185/80 (115) 98 07/27/17 04:00 96.0 60 15 179/63 (101) 97 07/27/17 00:00 97.0 68 17 149/72 (97) 95 07/26/17 23:00 69 07/26/17 20:00 63 07/26/17 19:00 97.6 64 19 133/64 (87) 94 07/26/17 16:00 96.8 73 18 117/67 (84) 96 I/O 07/26/17 07/26/17 07/26/17 07/27/17 07/27/17 07/27/17 07:00 15:00 23:00 07:00 15:00 23:00 Intake Total 480 ml 960 ml 480 ml Output Total 690 ml 200 ml 600 ml Balance -210 ml 760 ml -120 ml Intake Oral 480 ml 960 ml 480 ml Output Urine Total 690 ml 200 ml 600 ml # Voids 3 # Bowel Movements 0 1 0 Result Diagram: 07/26/17 0556 07/26/17 0556 Objective Remarks GENERAL: NAD, A&Ox2 HEAD: Normocephalic. NECK: Supple, trachea midline. No lymphadenopathy. EYES: No scleral icterus. No injection or drainage. CARDIOVASCULAR: Regular rate and rhythm without murmurs, gallops, or rubs. RESPIRATORY: Breath sounds equal bilaterally. No accessory muscle use. GASTROINTESTINAL: Abdomen soft, non-tender, nondistended. MUSCULOSKELETAL: No cyanosis, or edema. SKIN: Warm and dry. NEURO: No focal neurological deficitis. A/P Problem List: (1) Rib fractures ICD Code: S22.39XA - Fracture of one rib, unspecified side, initial encounter for closed fracture Status: Acute (2) Pneumothorax ICD Code: J93.9 - Pneumothorax, unspecified Status: Acute (3) Intermittent confusion ICD Code: R41.0 - Disorientation, unspecified Status: Acute (4) Rhabdomyolysis ICD Code: M62.82 - Rhabdomyolysis Assessment and Plan Assessment and Plan 87 y/o male presents following fall at home, admitted with rhabdomyolysis, rib fractures, pneumothorax, and transient confusion. Poor ambulation. Possible care home facility at discharge. is concerned for possible dementia. Neuropsych consulted. Continue Incentive spirometry. Continue occupational therapy evaluation to physical therapy. detention facility recommended. At this point patient is declining his option for care home facility and expressing her preference to go to home. His is opposed to the patient returning home in his current state. Possible TIA No recurrence of symptoms of confusion or other strokelike symptoms Continue OT, ST, PT Neurology following MRA and MRI of the brain are pending Carotid ultrasound pending Echocardiogram pending Rhabdomyolysis Continue to follow total creatinine kinase Pneumothorax Repeat chest x-ray tomorrow Respiratory status appears stable currently DVT prophylaxis Lovenox 40 mg subq qd Problem Qualifiers (1) Rib fractures: Qualified Codes: S22.42XA - Multiple fractures of ribs, left side, initial encounter for closed fracture (2) Pneumothorax: Qualified Codes: S27.0XXA - Traumatic pneumothorax, initial encounter Joey Nunez MD Jul 27, 2017 13:39
[2017-07-27] MEDS ORDERED: LACTULOSE SYRUP 20 GM/30 ML CUP PO ONE (15:15)
[2017-07-27 16:00] VITALS: BP 119/63; PULSE 68; RESP 18; TEMP 97.8; O2SAT 95
[2017-07-27 20:00] VITALS: BP 110/69; PULSE 72; PULSE 81; RESP 16; TEMP 98.6; O2SAT 94
[2017-07-28] VITALS (8 sets, daily range): BP systolic 120–163; BP diastolic 62–80; PULSE 62–75; RESP 17–19; TEMP 95.6–97.5; O2SAT 93–96
[2017-07-28] MEDS: ENOXAPARIN SODIUM 40 MG/0.4 ML SYRINGE SQ SCH (00:05)
[2017-07-28] MEDS: SODIUM CHLORIDE 0.9% FLUSH 5 ML FLUSH IV FLUSH SCH ×2 (09:00→21:15)
[2017-07-28] MEDS ORDERED: SOD PHOSPHATE/SOD BIPHOSPHATE (ADULT) ENEMA 133ML RECTAL PRN (09:00)
[2017-07-28] MEDS: DOCUSATE SODIUM 100 MG CAP PO SCH ×2 (09:00→21:15)
--- NOTE | 2017-07-28 11:30 | HHI.PR ---
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 he does not trust her states he is independent Objective Vitals Vital Signs Date Time Temp Pulse Resp B/P (MAP) Pulse Ox O2 Delivery O2 Flow Rate FiO2 07/28/17 08:00 95.6 62 17 147/77 (100) 94 07/28/17 04:00 97.5 64 18 151/74 (99) 93 07/28/17 00:00 97.5 73 19 120/72 (88) 93 07/27/17 20:00 98.6 72 16 110/69 (83) 94 07/27/17 16:00 97.8 68 18 119/63 (81) 95 07/27/17 12:00 96.6 57 18 155/73 (100) 96 I/O 07/27/17 07/27/17 07/27/17 07/28/17 07/28/17 07/28/17 07:00 15:00 23:00 07:00 15:00 23:00 Intake Total 480 ml 600 ml 240 ml 480 ml Output Total 600 ml 500 ml Balance -120 ml 600 ml 240 ml -20 ml Intake Oral 480 ml 600 ml 240 ml 480 ml Output Urine Total 600 ml 500 ml # Voids 3 3 1 # Bowel Movements 0 0 3 2 Result Diagram: 07/26/17 0556 07/26/17 0556 Imaging Last Impressions Chest X-Ray 07/26/17 0000 Signed Impressions: Service Date/Time: July 08:44 - CONCLUSION: 1. Stable small left-sided pneumothorax since July 24. Slight increase in basilar airspace disease and pleural effusion. Cedric Hardin MD Head Magnetic Resonance Angiography 07/25/17 0000 Signed Impressions: Service Date/Time: Tuesday, July 25, 2017 13:48 - CONCLUSION: No major branch vessel occlusion. Josemanuel Leo MD FACR Brain MRI 07/25/17 0000 Signed Impressions: Service Date/Time: Tuesday, July 25, 2017 13:48 - CONCLUSION: 1. 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 2. No acute infarction. 3. Chronic right maxillary sinusitis. Fernando Galan MD Head CT [id number]/24/171955 Signed Impressions: Service Date/Time: Monday, July 24, 2017 20:10 - CONCLUSION: 1. Diffuse cerebral atrophy. 2. Moderate to severe periventricular and subcortical white matter small vessel ischemic changes bilaterally. 3. No acute infarct, acute hemorrhage, mass effect or extra-axial fluid collections. 4. Chronic right- sided maxillary and ethmoid sinusitis as well as mucosal thickening involving the right frontal sinus. Dinesh Del Toro MD Thoracic Spine X-Ray 07/24/17 Signed Impressions: Service Date/Time: Monday, July 24, 2017 22:00 - CONCLUSION: 1. Moderate to severe compression deformity involving T7 of indeterminate age. 2. Degenerative changes and scoliosis of the thoracolumbar spine. 3. Kyphosis of the thoracic spine. Dinesh Del Toro MD Lumbar Spine X-Ray 07/24/17 Signed Impressions: Service Date/Time: Monday, July 24, 2017 22:00 - CONCLUSION: 1. Severe compression deformity involving L2 and mild compression deformity involving L5 of indeterminate ages. 2. Degenerative changes and scoliosis of the lumbar spine. Dinesh Del Toro MD Elbow X-Ray 07/24/17 Signed Impressions: Service Date/Time: Monday, July 24, 2017 20:21 - CONCLUSION: No acute displaced fracture or dislocation. Mild soft tissue swelling. Dinesh Del Toro MD Cervical Spine CT 07/24/17 Signed Impressions: Service Date/Time: Monday, July 24, 2017 20:10 - CONCLUSION: 1. Small left apical pneumothorax. 2. Severe left neural foraminal narrowing at C4-5 and moderate bilateral foraminal narrowing at C3-4 and C5-6. 3. Cervical spondylosis from C3 through C6. 4. No acute fracture or prevertebral soft tissue swelling. Dinesh Del Toro MD Carotid Artery Ultrasound 07/24/17 Signed Impressions: Service Date/Time: Monday, July 24, 2017 22:32 - CONCLUSION: 1. Diffuse calcified atherosclerotic plaque with approximate 50%% stenosis involving the right ICA origin and less than 50%% stenosis on the left. 2. Antegrade flow involving both vertebral arteries. Gerald Allison Jr., MD Objective Remarks awake and alert, no acute distress, oriented x 3, speech clear anicteric lungs clear regular rhythm abdomen soft, nontender extremities no edmea, moves all extremities spontaneously A/P Problem List: (1) Rib fractures ICD Code: S22.39XA - Fracture of one rib, unspecified side, initial encounter for closed fracture Status: Acute (2) Pneumothorax ICD Code: J93.9 - Pneumothorax, unspecified Status: Acute (3) Intermittent confusion ICD Code: R41.0 - Disorientation, unspecified Status: Acute Assessment and Plan 87 y/o male presents following fall at home, admitted with rhabdomyolysis, rib fractures, pneumothorax, and transient confusion. Poor ambulation. Possible [facility] facility at discharge. is concerned for possible dementia. Confusion- transient. patient is awkae and alert- appropriate. ? family dynamics- does not trust his Continue Incentive spirometry. Continue occupational therapy evaluation to physical therapy. halfway facility recommended. At this point patient is declining his option for [facility] facility and expressing her preference to go to home. His is opposed to the patient returning home in his current state. On discussion with patient- states he does not trust his . 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 Possible TIA- neurologically stable No recurrence of symptoms of confusion or other strokelike symptoms Continue OT, ST, PT Neurology following MRA and MRI of the brain - no acute finsdings Carotid ultrasound pending- 50% stenosis Echocardiogram - unremarkable Rhabdomyolysis Continue to follow total creatinine kinase- trending down Pneumothorax,small Repeat chest x-ray stable. good sats Respiratory status appears stable currently DVT prophylaxis Lovenox 40 mg subq qd CM - d/w planning- consult case management- DC planning Problem Qualifiers (1) Rib fractures: Qualified Codes: S22.42XA - Multiple fractures of ribs, left side, initial encounter for closed fracture (2) Pneumothorax: Qualified Codes: S27.0XXA - Traumatic pneumothorax, initial encounter Yang Baez MD Jul 28, 2017 11:30
[2017-07-29] VITALS (8 sets, daily range): BP systolic 112–168; BP diastolic 58–83; PULSE 58–74; RESP 18–19; TEMP 96.7–98.7; O2SAT 92–96
[2017-07-29] MEDS: ENOXAPARIN SODIUM 40 MG/0.4 ML SYRINGE SQ SCH ×2 (00:01→23:48)
[2017-07-29] MEDS: SODIUM CHLORIDE 0.9% FLUSH 5 ML FLUSH IV FLUSH SCH ×2 (09:00→19:59)
[2017-07-29] MEDS: DOCUSATE SODIUM 100 MG CAP PO SCH ×2 (09:00→20:01)
--- NOTE | 2017-07-29 10:16 | HHI.PR ---
Subjective Remarks awake and alert, no pain complains good po still very angry when discussed home situation- states is him Objective Vitals Vital Signs Date Time Temp Pulse Resp B/P (MAP) Pulse Ox O2 Delivery O2 Flow Rate FiO2 07/29/17 08:00 96.9 63 18 168/83 (111) 94 07/29/17 04:27 97.1 58 18 127/65 (85) 96 07/29/17 00:30 96.7 64 18 121/63 (82) 94 07/28/17 20:00 66 07/28/17 19:45 96.9 71 18 151/80 (103) 95 07/28/17 16:00 96.3 69 18 163/67 (99) 96 07/28/17 12:00 96.6 75 18 135/62 (86) 96 07/28/17 11:10 94 I/O 07/28/17 07/28/17 07/28/17 07/29/17 07/29/17 07/29/17 07:00 15:00 23:00 07:00 15:00 23:00 Intake Total 480 ml 720 ml 240 ml 120 ml Output Total 500 ml 550 ml 250 ml Balance -20 ml 720 ml -310 ml -130 ml Intake Oral 480 ml 720 ml 240 ml 120 ml Output Urine Total 500 ml 550 ml 250 ml # Voids 1 4 # Bowel Movements 2 3 0 0 Result Diagram: 07/26/17 0556 07/26/17 0556 Imaging Last Impressions Chest X-Ray 07/26/17 0000 Signed Impressions: Service Date/Time: July 08:44 - CONCLUSION: 1. Stable small left-sided pneumothorax since July 24. Slight increase in basilar airspace disease and pleural effusion. Cedric Hardin MD Head Magnetic Resonance Angiography 07/25/17 0000 Signed Impressions: Service Date/Time: Tuesday, July 25, 2017 13:48 - CONCLUSION: No major branch vessel occlusion. Josemanuel Leo MD FACR Brain MRI 07/25/17 0000 Signed Impressions: Service Date/Time: Tuesday, July 25, 2017 13:48 - CONCLUSION: 1. 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 2. No acute infarction. 3. Chronic right maxillary sinusitis. Fernando Galan MD Head CT 07/24/171955 Signed Impressions: Service Date/Time: Monday, July 24, 2017 20:10 - CONCLUSION: 1. Diffuse cerebral atrophy. 2. Moderate to severe periventricular and subcortical white matter small vessel ischemic changes bilaterally. 3. No acute infarct, acute hemorrhage, mass effect or extra-axial fluid collections. 4. Chronic right- sided maxillary and ethmoid sinusitis as well as mucosal thickening involving the right frontal sinus. Dinesh Del Toro MD Thoracic Spine X-Ray 07/24/17 Signed Impressions: Service Date/Time: Monday, July 24, 2017 22:00 - CONCLUSION: 1. Moderate to severe compression deformity involving T7 of indeterminate age. 2. Degenerative changes and scoliosis of the thoracolumbar spine. 3. Kyphosis of the thoracic spine. Dinesh Del Toro MD Lumbar Spine X-Ray 07/24/17 Signed Impressions: Service Date/Time: Monday, July 24, 2017 22:00 - CONCLUSION: 1. Severe compression deformity involving L2 and mild compression deformity involving L5 of indeterminate ages. 2. Degenerative changes and scoliosis of the lumbar spine. Dinesh Del Toro MD Elbow X-Ray 07/24/17 Signed Impressions: Service Date/Time: Monday, July 24, 2017 20:21 - CONCLUSION: No acute displaced fracture or dislocation. Mild soft tissue swelling. Dinesh Del Toro MD Cervical Spine CT 07/24/17 Signed Impressions: Service Date/Time: Monday, July 24, 2017 20:10 - CONCLUSION: 1. Small left apical pneumothorax. 2. Severe left neural foraminal narrowing at C4-5 and moderate bilateral foraminal narrowing at C3-4 and C5-6. 3. Cervical spondylosis from C3 through C6. 4. No acute fracture or prevertebral soft tissue swelling. Dinesh Del Toro MD Carotid Artery Ultrasound 07/24/17 Signed Impressions: Service Date/Time: Monday, July 24, 2017 22:32 - CONCLUSION: 1. Diffuse calcified atherosclerotic plaque with approximate 50%% stenosis involving the right ICA origin and less than 50%% stenosis on the left. 2. Antegrade flow involving both vertebral arteries. Gerald Allison Jr., MD Objective Remarks awake and alert, no acute distress, oriented x 3, speech clear anicteric no bruit lungs clear regular rhythm abdomen soft, nontender extremities no edema, moves all extremities spontaneously A/P Problem List: (1) Rib fractures ICD Code: S22.39XA - Fracture of one rib, unspecified side, initial encounter for closed fracture Status: Acute (2) Pneumothorax ICD Code: J93.9 - Pneumothorax, unspecified Status: Acute (3) Intermittent confusion ICD Code: R41.0 - Disorientation, unspecified Status: Acute Assessment and Plan 87 y/o male presents following fall at home, admitted with rhabdomyolysis, rib fractures, pneumothorax, and transient confusion. Poor ambulation. Possible half-way facility at discharge. is concerned for possible dementia. Confusion- transient. patient is awkae and alert- appropriate. ? family dynamics- does not trust his Continue Incentive spirometry. Continue occupational therapy evaluation to physical therapy. [facility] facility recommended. At this point patient is declining his option for half-way facility and expressing his preference to go to home. His is opposed to the patient returning home in his current state. On discussion with patient- states he does not trust his . 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 good sats Respiratory status appears stable currently DVT prophylaxis Lovenox 40 mg subq qd CM - d/w planning- consult case management- DC planning- also requested to look into home situation Problem Qualifiers (1) Rib fractures: Qualified Codes: S22.42XA - Multiple fractures of ribs, left side, initial encounter for closed fracture (2) Pneumothorax: Qualified Codes: S27.0XXA - Traumatic pneumothorax, initial encounter Yagn Baez MD Jul 29, 2017 10:16
[2017-07-29] MEDS: ASPIRIN 81 MG CHEW TAB CHEW SCH (12:05)
--- NOTE | 2017-07-29 18:54 | PD.PSY.CON ---
Provisional Diagnosis Admission Date Jul 24, 2017 at 23:09 [place]. Dementia with behavioral disturbance History of Present Illness Service Psychiatry Consult Requested By Reason for Consult Hallucinations and delusions Primary Care Physician Frances Daly MD HPI Patient showing evidence of psychosis which includes hallucinations and delusions. He is oriented to person and sometimes oriented to place. He is not well oriented to situation. His symptoms may be consistent with dementia and even sundowning. He may also have delirium if he is medically/physically unstable. Review of Systems ROS Limitations: Altered Mental Status Except as stated in HPI: all other systems reviewed are Neg Past Family Social History Coded Allergies: No Known Allergies (Unverified , 07/24/17) Reported Medications Loratadine (Claritin) 10 Mg Cap, 10 MG PO DAILY for Allergy Management, CAP 0 Refills 07/24/17 Current Medications Medications (Trade) Dose Ordered Sig/Randa Route Start Time Stop Time Status Last Admin (NS Flush) 2 ml BID IV FLUSH 07/25/17 09:00 07/29/17 09:00 (NS Flush) 2 ml UNSCH PRN IV FLUSH 07/24/17 22:00 (Lovenox Inj) 40 mg Q24H SQ 07/24/17 23:45 07/29/17 00:01 (Colace) 100 mg BID PO 07/25/17 21:00 07/27/17 10:08 (Milk Of Magnesia Liq) 30 ml DAILY PRN PO 07/25/17 13:45 07/27/17 10:12 (Aspirin Chew) 81 mg DAILY CHEW 07/29/17 12:00 07/29/17 12:05 Family History Poor historian Social History Poor historian Patient's Strengths (min. 2) Resilient and has access to healthcare Physical Exam Vital Signs Vital Signs Date Time Temp Pulse Resp B/P (MAP) Pulse Ox O2 Delivery O2 Flow Rate FiO2 07/29/17 16:00 96.8 74 18 151/79 (103) 94 I/O 07/29/17 07/29/17 07/30/17 08:00 16:00 00:00 Intake Total 120 ml 720 ml Output Total 250 ml Balance -130 ml 720 ml Lab Results Test 07/29/17 12:01 Total Creatine Kinase 144 U/L Mental Status Examination Cognitively impaired in all mccrary Speech: Hesitant Orientation: Person Memory: Impaired (describe) Thought Process: Loose Association Thought Content: Bizarre thinking Hallucination Type: Visual Attention and Concentration: Abnormal Suicidal Ideation: No Previous Suicide Attempts: No Homicidal Ideation: No Previous Homicide Attempts: No Insight: Fair Judgment: WNL, Impulsive Affect: Good Mood: Appropriate Motor Activity: Normal gait Assessment & Plan Problem List: (1) Alzheimer's dementia with behavioral disturbance ICD Codes: G30.8 - Other Alzheimer's disease; F02.81 - Dementia in other diseases classified elsewhere with behavioral disturbance (2) Dementia in other diseases classified elsewhere with behavioral disturbance ICD Codes: F02.81 - Dementia in other diseases classified elsewhere with behavioral disturbance Assessment & Plan Estimated LOS: days patient psychotic symptoms the result of his dementia process. May also be the result of delirium. Suggest low dose high potency antipsychotic medicine such as Risperdal if these episodes persist Bob Urena MD Jul 29, 2017 18:54
[2017-07-29] MEDS: MAGNESIUM HYDROXIDE SUSP 30 ML CUP PO PRN (20:01)
--- NOTE | 2017-07-29 21:42 | HHI.PR ---
Addendum to Inpatient Note Addendum Reason: Additional Documentation Additional Information The discrepancies in history between patient and his remain consistant with what I have observed in the office (he insists he can care for himself at home yet his notes that he cannot remember how to use the microwave, prepare simple foods, handle the phone, etc). He also feels he can walk well without a cane/walker yet he really is unsafe to do so and feels he can drive although he can't hold his head up enough to see out the window. ON MMS testing he only showed mild deficits. Although his judgement seemed to be poor in the past, he seemed able to make decisions regarding his care. From psych eval, it sounds like things have worsened since his fall. He has repeatedly declined to file POA/living will paperwork with me. He is estranged from his son (from a different relationship than his current ) and has verbalized he doesn't want him involved in any of his decisions/inheritance, yet hasn't done anything to define that legally to my knowledge. He has verbalized distrust of his , yet again hasn't made any attempt to designate a different POA to my knowledge. Frances Sandra MD Jul 29, 2017 21:42
[2017-07-30 04:10] VITALS: BP 140/65; PULSE 63; RESP 18; TEMP 97.5; O2SAT 94
[2017-07-30 08:00] VITALS: BP 127/80; PULSE 57; PULSE 60; RESP 18; TEMP 96.4; O2SAT 93
[2017-07-30] MEDS: DOCUSATE SODIUM 100 MG CAP PO SCH (08:45)
[2017-07-30] MEDS: ASPIRIN 81 MG CHEW TAB CHEW SCH (08:45)
[2017-07-30] MEDS: SODIUM CHLORIDE 0.9% FLUSH 5 ML FLUSH IV FLUSH SCH (08:45)
--- NOTE | 2017-07-30 09:17 | HHI.PR ---
Subjective Remarks patient this am is very pelasant and cooperative very agreeable to go to rehab good po intake no pain complains Objective Vitals Vital Signs Date Time Temp Pulse Resp B/P (MAP) Pulse Ox O2 Delivery O2 Flow Rate FiO2 07/30/17 04:10 97.5 63 18 140/65 (90) 94 07/29/17 23:30 98.7 62 18 129/66 (87) 94 07/29/17 20:30 67 07/29/17 19:40 98.1 66 19 116/58 (77) 92 07/29/17 16:00 96.8 74 18 151/79 (103) 94 07/29/17 12:00 96.7 64 18 112/64 (80) 96 I/O 07/29/17 07/29/17 07/29/17 07/30/17 07/30/17 07/30/17 07:00 15:00 23:00 07:00 15:00 23:00 Intake Total 120 ml 720 ml 480 ml 840 ml Output Total 250 ml 500 ml 700 ml Balance -130 ml 720 ml -20 ml 140 ml Intake Oral 120 ml 720 ml 480 ml 840 ml Output Urine Total 250 ml 500 ml 700 ml # Voids 4 # Bowel Movements 0 0 0 0 Result Diagram: 07/26/17 0556 07/26/17 0556 Imaging Last Impressions Chest X-Ray 07/26/17 0000 Signed Impressions: Service Date/Time: July 08:44 - CONCLUSION: 1. Stable small left-sided pneumothorax since July 24. Slight increase in basilar airspace disease and pleural effusion. Cedric Hardin MD Head Magnetic Resonance Angiography 07/25/17 0000 Signed Impressions: Service Date/Time: Tuesday, July 25, 2017 13:48 - CONCLUSION: No major branch vessel occlusion. Josemanuel Leo MD FACR Brain MRI 07/25/17 0000 Signed Impressions: Service Date/Time: Tuesday, July 25, 2017 13:48 - CONCLUSION: 1. 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 2. No acute infarction. 3. Chronic right maxillary sinusitis. Fernando Galan MD Head CT 07/24/171955 Signed Impressions: Service Date/Time: Monday, July 24, 2017 20:10 - CONCLUSION: 1. Diffuse cerebral atrophy. 2. Moderate to severe periventricular and subcortical white matter small vessel ischemic changes bilaterally. 3. No acute infarct, acute hemorrhage, mass effect or extra-axial fluid collections. 4. Chronic right- sided maxillary and ethmoid sinusitis as well as mucosal thickening involving the right frontal sinus. Dinesh Del Toro MD Thoracic Spine X-Ray 07/24/17 0000 Signed Impressions: Service Date/Time: Monday, July 24, 2017 22:00 - CONCLUSION: 1. Moderate to severe compression deformity involving T7 of indeterminate age. 2. Degenerative changes and scoliosis of the thoracolumbar spine. 3. Kyphosis of the thoracic spine. Dinesh Del Toro MD Lumbar Spine X-Ray 07/24/17 0000 Signed Impressions: Service Date/Time: Monday, July 24, 2017 22:00 - CONCLUSION: 1. Severe compression deformity involving L2 and mild compression deformity involving L5 of indeterminate ages. 2. Degenerative changes and scoliosis of the lumbar spine. Dinesh Del Toro MD Elbow X-Ray 07/24/17 0000 Signed Impressions: Service Date/Time: Monday, July 24, 2017 20:21 - CONCLUSION: No acute displaced fracture or dislocation. Mild soft tissue swelling. Dinesh Del Toro MD Cervical Spine CT 07/24/17 0000 Signed Impressions: Service Date/Time: Monday, July 24, 2017 20:10 - CONCLUSION: 1. Small left apical pneumothorax. 2. Severe left neural foraminal narrowing at C4-5 and moderate bilateral foraminal narrowing at C3-4 and C5-6. 3. Cervical spondylosis from C3 through C6. 4. No acute fracture or prevertebral soft tissue swelling. Dinesh Del Toro MD Carotid Artery Ultrasound 07/24/17 0000 Signed Impressions: Service Date/Time: Monday, July 24, 2017 22:32 - CONCLUSION: 1. Diffuse calcified atherosclerotic plaque with approximate 50%% stenosis involving the right ICA origin and less than 50%% stenosis on the left. 2. Antegrade flow involving both vertebral arteries. Gerald Allison Jr., MD Objective Remarks awake and alert, no acute distress, oriented x 3, speech clear anicteric no bruit lungs clear regular rhythm abdomen soft, nontender extremities no edema, moves all extremities spontaneously A/P Problem List: (1) Rib fractures ICD Code: S22.39XA - Fracture of one rib, unspecified side, initial encounter for closed fracture Status: Acute (2) Pneumothorax ICD Code: J93.9 - Pneumothorax, unspecified Status: Acute (3) Intermittent confusion ICD Code: R41.0 - Disorientation, unspecified Status: Acute Assessment and Plan 87 y/o male presents following fall at home, admitted with rhabdomyolysis, rib fractures, pneumothorax, and transient confusion. Poor ambulation. Possible half-way facility at discharge. is concerned for possible dementia. Confusion- transient- delirium. likely with udnerlying dementia patient is awake and alert- appropriate. ? family dynamics- does not trust his - "I just don't understand her" Continue Incentive spirometry. Continue occupational therapy evaluation to physical therapy. long-term facility recommended- patient now agreeable to go "I think I need it". 07/29 On discussion with patient- states he does not trust his . "I'm a millionaire" appreciate psychiatry evaluation - recommends risperdal if needed Possible TIA- neurologically stable No recurrence of symptoms of confusion or other strokelike symptoms Continue OT, ST, PT Neurology following- cleared for DC MRA and MRI of the brain - no acute findings Carotid ultrasound- 50% stenosis Echocardiogram - unremarkable start Baby ASA 81 mg daily Rhabdomyolysis- resolved Pneumothorax,small Rib fractures- no pain complains - no distress, good sats at room air- up and ambulating Repeat chest x-ray stable. good sats Respiratory status appears stable currently DVT prophylaxis Lovenox 40 mg subq qd CM - d/w planning- consult case management- DC planning- SNF today Problem Qualifiers (1) Rib fractures: Qualified Codes: S22.42XA - Multiple fractures of ribs, left side, initial encounter for closed fracture (2) Pneumothorax: Qualified Codes: S27.0XXA - Traumatic pneumothorax, initial encounter Yang Baez MD Jul 30, 2017 09:17
[2017-07-30] MEDS ORDERED: ASPI81CH25 CHEW (09:21)
--- NOTE | 2017-07-30 13:27 | PD.HHIRCNE ---
Patient History Record/History Review Reason for Referral: The patient is a 87 year old right handed male status post traumatic injury sustained on 07/24/2017. 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 He is now referred for baseline neurobehavioral status examination to assess cognitive, behavioral and emotional aspects of the injury and to provide treatment recommendations. Past Surgical/Medical History Past Surgery: Yes (SKIN CANCER ) Major surgery in last 100 days: Unknown Hx Abdominal Surgery: Yes (HERNIA) Hx of Neuro Prob: No Hx of Musculoskeletal Pro: Yes Hx Arthritis: Yes Hx Neck Problems: Yes Hx Back Problem: Yes Hx of Cardiovascular Prob: No Hypertension (High Blood Press: No Hx Congestive Heart Failure: No Hx of Respiratory Problem: No Hx of GI Problems: No Hx of Problems: No Hx of Immuno Disor: No Hx of Endocrine Problems: Yes Hx Thyroid Disease: Yes Hx Diabetes: No Hx Psychiatric Problems: No Hx of MDRO: No Hx of Body/Medical Devices: No Blood Transfusion History Will receive Blood /Blood prod: Yes Hx Blood Transfusions: No Mental Status Assessment Orientation: oriented to Self, oriented to Situation, disoriented to Place, disoriented to Time Mental Status: WFL: Thought processing, Language/Interactions, Problem-Solving , Impaired: Attention Observation The patient is alert and oriented to person and circumstances surrounding the reason for hospitalization, but not date or place. In terms of attention skills , the patient was able to remain on task and remember basic but not complex instructions. In terms of memory functioning, the patient was able to remember two of three words after a brief period of time. The patient initiated spontaneous conversation. Speech was characterized by adequate prosody, grammar , articulation, volume and rate. Basic naming skills were intact. Language repetition skills were intact. The patients comprehensions for basic one- and two-stage commands were intact. Basic verbal abstraction and problem-solving skills were intact relative to his advanced age. The patient appears to posses some level of insight and awareness into their situation and within the limits of this brief evaluation, adequate basic judgment. Impression Major Neurocognitive disorder. Adjustment/Coping Assessment Adjustment/Coping: None: Depression, Anxiety, Pain, Apathy, Moderate: Awareness , Insight Observation The patients thought content was free from suicidal, homicidal or paranoid ideation, and the patients thought processes were somewhat tangential. The patients mood was euthymic, and his affect was stable and appropriate. LTG Status: Deferred STG Status: Deferred Team Members: Neuropsychologist Behavior Assessment Agitation: None Treatment Engagement: Average Observation Behaviorally, the patient demonstrated no signs of agitation, impulsivity or disinhibition. There was no remarkable evidence of a formal thought disorder or psychosis. LTG - Status: Deferred STG Status: Deferred Team Members: Neuropsychologist Diagnosis/Discharge Plan Impression This 87 year old man recently fell and presented to the hospital with confusion and possible underlying neurocognitive disorder. He was seen by psychiatry as well, and this evaluation concurs with that evaluation of an underlying major neurocognitive disorder due to Alzheimer's disease. At this point in time, this patient does maintain some cognitive capacity to make decisions of a legal , financial and medical nature in spite of the neurocognitive difficulties that are developing. Diagnosis: (1) Alzheimer's dementia with behavioral disturbance Maximizing acute care outcome It is recommended that the patient be monitored for emergent neurocognitive decline as the medical condition evolves. This patients neuropathological challenges may limit their rehabilitation potential going forward, and these challenges will require specialized therapeutic skills to maximize outcome. Discharge Planning Anticipated Problems Ongoing areas of concern will include behavioral impulsivity, lack of insight and judgment, which may not improve with time and treatment. Treatment Plan This clinician will continue to follow with you throughout the course of this patients acute care treatment, and I will be available to meet with the patient s family/support system to facilitate their understanding and the ongoing care of their family member. The goals of neuropsychological intervention shall be both educational and supportive to the family/support system as is deemed clinically appropriate. He may benefit from pharmacological intervention that would serve to slow the progression of his underlying neurocognitive disorder, unless medically contraindicated. Discharge Needs To be determined. Thank you Thank you for the opportunity to assist in this patients care. Haresh Barrientos, Ph.D., ABPP Board Certified in Clinical Neuropsychology [place] [employer] [place] Licensed Psychologist #[id number] Haresh Barrientos PhD Jul 30, 2017 1:27 pm
== END 2017-07-30 14:41 | DRG 199 ==
LOC: NEPE 19:19 → NEDA 21:44 → UNDOADMOB 21:44 → NEDA 23:09 → INTOOBSV 23:09 → OBSVTOIN 23:09 → NEPFCDU 23:09 → N06A 07-25 01:30
PROVIDERS: ADMIT Internal Medicine; ATTEND Internal Medicine
DX: S27.0XXA Traumatic pneumothorax, initial encounter (principal); G93.40 Encephalopathy, unspecified; S22.42XA Multiple fractures of ribs, left side, initial encounter for closed fracture; M62.82 Rhabdomyolysis; M50.30 Other cervical disc degeneration, unspecified cervical region; M41.9 Scoliosis, unspecified; W19.XXXA Unspecified fall, initial encounter; Y92.009 Unspecified place in unspecified non-institutional (private) residence as the place of occurrence of the external cause; Z85.828 Personal history of other malignant neoplasm of skin; Z92.3 Personal history of irradiation
CPT/HCPCS: 70450; 70544; 70551; 71010; 72072; 72100; 72125; 73070; 80048; 80053; 80061; 81001; 82550; 82552; 83036; 84484; 85025; 85610; 85730; 93005; 93306; 93880; 94150; 99285; J1650; J7030

== ENCOUNTER 2017-10-16 12:23 | Inpatient (IN) | payer MEDICARE ==
[~2017-10-16] VITALS: Ht 177.8 cm; Wt 65.4 kg
[~2017-10-16 12:23] MED LIST changes: +ASPI81CH25 CHEW; -LEVO75TA42 PO
[2017-10-16] MEDS ORDERED: SODIUM CHLOR 0.9% 1000 ML INJ 1,000 ML IV ONE (12:34)
[2017-10-16 12:37] VITALS: BP 156/88; PULSE 71; RESP 18; TEMP 97.4; O2SAT 99
[2017-10-16] MEDS ORDERED: SODIUM CHLORIDE 0.9% FLUSH 10 ML FLUSH IVF PRN (12:45)
--- NOTE | 2017-10-16 12:45 | PD ---
HPI Chief Complaint: generalized weakness Time Seen by Provider: 12:26 Travel History International Travel<30 days: No Contact w/Intl Traveler<30days: No History of Present Illness HPI 87-year-old male presents to the emergency department via EMS for evaluation of generalized weakness. According to EMS, the patient's ex- moved out 1 week ago. He now lives by himself. She does and help him care for himself for several hours every day. However, she came today around 11 AM and he was lying on the floor. He fell from time yesterday or last night and has been lying on the floor since. The patient has a history of thyroid disease, dementia. The patient denies any pain. He states that he felt weak yesterday and then fell. The patient has history of dementia. He is alert and oriented to person and place, but not time. Patient denies any pain. According to EMS, when they got there today, they had to help him off the floor. The patient does not recall how long he has been there. Moderate severity. No exacerbating or alleviating factors. PFSH Past Medical History Arthritis: Yes Cancer: Yes Cardiovascular Problems: No Chemotherapy: No (skin cancer) Congestive Heart Failure: No Diabetes: No Endocrine: Yes Genitourinary: No Immune Disorder: No Musculoskeletal: Yes Neurologic: No Psychiatric: No Reproductive: No Respiratory: No Thyroid Disease: Yes Past Surgical History Abdominal Surgery: Yes (HERNIA) Other Surgery: Yes (SKIN CANCER ) Social History Alcohol Use: No Tobacco Use: No Substance Use: No Allergies-Medications (Allergen,Severity, Reaction): Coded Allergies: No Known Allergies (Unverified Adverse Reaction, Unknown, 10/16/17) Reported Meds & Prescriptions Reported Meds & Active Scripts Active Reported Divalproex ER (Divalproex Sodium) 250 Mg Mindi 125 Mg PO BID Review of Systems Except as stated in HPI: all other systems reviewed are Neg Physical Exam Narrative GENERAL: Well-nourished, well-developed elderly male patient, afebrile. Patient is alert and oriented to person and place only. SKIN: Focused skin assessment warm/dry. HEAD: Normocephalic. Atraumatic. EYES: No scleral icterus. No injection or drainage. ENT: Mucosa pink and moist. No erythema or exudates. No uvular edema. No uvular , palatal, or tonsillar deviation. Airway patent. Nasal turbinates appear normal without nasal blood, purulent drainage or septal hematoma. NECK: Supple, trachea midline. No JVD or lymphadenopathy. CARDIOVASCULAR: Regular rate and rhythm without murmurs, gallops, or rubs. RESPIRATORY: Breath sounds equal bilaterally. No accessory muscle use. GASTROINTESTINAL: Abdomen soft, non-tender, nondistended. MUSCULOSKELETAL: No cyanosis, or edema. Bilateral upper extremity strength 5/ 5. Right lower extremity strength 3-4/5. Left lower extremity strength 5/5. Finger to nose is difficult for patient due to dementia. He is unable to do heel to kevin with right lower extremity. BACK: Nontender without obvious deformity. No CVA tenderness. Data Data Last Documented VS Vital Signs Date Time Temp Pulse Resp B/P (MAP) Pulse Ox O2 Delivery O2 Flow Rate FiO2 10/16/17 15:45 64 22 134/62 (86) 94 Room Air 10/16/17 12:54 97.4 Orders Orders Electrocardiogram (10/16/17 12:34) Complete Blood Count With Diff (10/16/17 12:34) Comprehensive Metabolic Panel (10/16/17 12:34) Magnesium (Mg) (10/16/17 12:34) Troponin I (10/16/17 12:34) Act Partial Throm Time (Ptt) (10/16/17 12:34) Prothrombin Time / Inr (Pt) (10/16/17 12:34) Urinalysis - C+S If Indicated (10/16/17 12:34) Chest, Single Ap (10/16/17 12:34) Ct Brain W/O Iv Contrast(Rout) (10/16/17 12:34) Ct Cerv Spine W/O Contrast (10/16/17 12:34) Blood Glucose (10/16/17 12:34) Ecg Monitoring (10/16/17 12:34) Iv Access Insert/Monitor (10/16/17 12:34) Oximetry (10/16/17 12:34) Sodium Chloride 0.9% Flush (Ns Flush) (10/16/17 12:45) Sodium Chlor 0.9% 1000 Ml Inj (Ns 1000 M (10/16/17 12:34) Creatine Kinase (Cpk) (10/16/17 12:34) Thyroid Stimulating Hormone (10/16/17 12:34) CKMB (10/16/17 12:50) CKMB% (10/16/17 12:50) Cath For Specimen (10/16/17 14:40) Admit Order (Ed Use Only) (10/16/17 16:47) Labs Laboratory Tests Test 10/16/17 12:50 10/16/17 15:08 White Blood Count 5.1 TH/MM3 Red Blood Count 4.25 MIL/MM3 Hemoglobin 14.0 GM/DL Hematocrit 40.9 % Mean Corpuscular Volume 96.2 FL Mean Corpuscular Hemoglobin 32.9 PG Mean Corpuscular Hemoglobin Concent 34.1 % Red Cell Distribution Width 14.9 % Platelet Count 150 TH/MM3 Mean Platelet Volume 8.5 FL Neutrophils (%) (Auto) 71.8 % Lymphocytes (%) (Auto) 23.5 % Monocytes (%) (Auto) 4.3 % Eosinophils (%) (Auto) 0.2 % Basophils (%) (Auto) 0.2 % Neutrophils # (Auto) 3.7 TH/MM3 Lymphocytes # (Auto) 1.2 TH/MM3 Monocytes # (Auto) 0.2 TH/MM3 Eosinophils # (Auto) 0.0 TH/MM3 Basophils # (Auto) 0.0 TH/MM3 CBC Comment DIFF FINAL Differential Comment Prothrombin Time 11.2 SEC Prothromb Time International Ratio 1.1 RATIO Activated Partial Thromboplast Time 25.6 SEC Blood Urea Nitrogen 28 MG/DL Creatinine 0.96 MG/DL Random Glucose 80 MG/DL Total Protein 6.7 GM/DL Albumin 3.4 GM/DL Calcium Level 8.5 MG/DL Magnesium Level 2.3 MG/DL Alkaline Phosphatase 124 U/L Aspartate Amino Transf (AST/SGOT) 52 U/L Alanine Aminotransferase (ALT/SGPT) 54 U/L Total Bilirubin 1.3 MG/DL Sodium Level 142 MEQ/L Potassium Level 4.1 MEQ/L Chloride Level 107 MEQ/L Carbon Dioxide Level 31.1 MEQ/L Anion Gap 4 MEQ/L Estimat Glomerular Filtration Rate 74 ML/MIN Total Creatine Kinase 837 U/L Creatine Kinase MB 23.0 NG/ML Creatine Kinase MB % 2.7 % Troponin I 0.04 NG/ML Thyroid Stimulating Hormone 3rd Gen 1.700 uIU/ML Urine Color YELLOW Urine Turbidity CLEAR Urine pH 5.5 Urine Specific [place] 1.018 Urine Protein TRACE mg/dL Urine Glucose (UA) NEG mg/dL Urine Ketones TRACE mg/dL Urine Occult Blood NEG Urine Nitrite NEG Urine Bilirubin NEG Urine Urobilinogen LESS THAN 2.0 MG/DL Urine Leukocyte Esterase NEG Urine RBC 1 /hpf Urine WBC 1 /hpf Urine Squamous Epithelial Cells <1 /hpf Urine Mucus FEW /lpf Microscopic Urinalysis Comment CULT NOT INDICATED MDM Medical Decision Making Medical Screen Exam Complete: Yes Emergency Medical Condition: Yes Medical Record Reviewed: Yes Interpretation(s) chest x-ray =- CONCLUSION: 1. Trace stable left pleural effusion. 2. Patchy left lower lung zone airspace consolidation slightly progressed from prior exam. CT of the brain CONCLUSION: 1. No change since prior exam. 2. Aging brain with atrophy. 3. No evidence of acute infarct, hemorrhage, mass or edema. CT of the cervical spine - CONCLUSION: 1. No acute fracture or subluxation. 2. Redemonstration of multilevel degenerative spondylosis most prominently at C3 -6. Differential Diagnosis Electrolyte abnormality versus dehydration versus rhabdomyolysis versus CVA versus TIA versus ACS versus intracranial abnormality Narrative Course 87-year-old male presents to the emergency department for generalized weakness via EMS. He fell sometime yesterday and has been lying on the floor since. He reports increased weakness that started yesterday. EKG, CBC, CMP, magnesium, CK troponin, PTT, PT/INR, UA, TSH are ordered and pending. Chest x-ray, CT of the brain, CT of the cervical spine are ordered and pending. Patient is given normal saline 1 L IV bolus. EKG shows atrial fibrillation, heart rate 62, no acute ST changes. CBC shows no acute abnormality. CMP is elevated AST at 52, alkaline phosphatase 124. Magnesium is 2.3. CK is 837. Troponin is 0.04. Coags are unremarkable. TSH is 1.700. UA is negative. CT of the brain shows no change since prior exam. CT of the cervical spine shows no acute fracture subluxation. Chest x-ray shows trace stable left pleural effusion; patchy left lower lung zone airspace consolidation slightly progressed from prior exam. Hospitalist is paged for admission. Dr. Leyva, Resident, accepted admission. Diagnosis Primary Impression: Generalized weakness Admitting Information Admitting Physician Requests: Observation Arti Elizabeth Oct 16, 2017 12:45
[2017-10-16 12:54] VITALS: BP 156/88; PULSE 64; RESP 18; TEMP 97.4; O2SAT 98; O2SAT 99
[2017-10-16 13:13] LABS: AUTOMATED NEUTROPHIL # 3.7 TH/MM3 (1.8-7.7); BASOPHIL % 0.2 % (0.0-2.0); EOSINOPHIL % 0.2 % (0.0-4.0); HEMATOCRIT 40.9 % (39.0-51.0); HEMO FLAGS DIFF FINAL; LYMPH % 23.5 % (9.0-44.0); LYMPHOCYTE # 1.2 TH/MM3 (1.0-4.8); MEAN CELL VOLUME 96.2 FL (80.0-100.0); MEAN CORPUSCULAR HEMOGLOBIN 32.9 PG (27.0-34.0); MEAN CORPUSCULAR HGB CONC 34.1 % (32.0-36.0); MONO % 4.3 % (0.0-8.0); NEUT % 71.8 % (16.0-70.0); PLATELET COUNT 150 TH/MM3 (150-450); RED BLOOD COUNT 4.25 MIL/MM3 (4.50-5.90); RED CELL DISTRIBUTION WIDTH 14.9 % (11.6-17.2); WHITE BLOOD COUNT 5.1 TH/MM3 (4.0-11.0)
[2017-10-16 13:22] LABS: APTT (PATIENT) 25.6 SEC (24.3-30.1); INTERNATIONAL NORMALIZED RATIO 1.1 RATIO; PROTHROMBIN TIME - PATIENT 11.2 SEC (9.8-11.6)
[2017-10-16 13:29] LABS: ANION GAP 4 MEQ/L (5-15); AST (GOT) 52 U/L (15-37); BICARBONATE 31.1 MEQ/L (21.0-32.0); BLOOD UREA NITROGEN 28 MG/DL (7-18); CHLORIDE 107 MEQ/L (98-107); GLOMERULAR FILTRATION RATE 74 ML/MIN (>89); MAGNESIUM 2.3 MG/DL (1.5-2.5); POTASSIUM 4.1 MEQ/L (3.5-5.1); SODIUM (NA) 142 MEQ/L (136-145)
[2017-10-16 13:39] LABS: ALKALINE PHOSPHATASE 124 U/L (45-117); ALT (GPT) 54 U/L (12-78); CREATINE KINASE 837 U/L (39-308); TOTAL BILIRUBIN ADULT 1.3 MG/DL (0.2-1.0)
--- NOTE | 2017-10-16 13:48 | RADRPT ---
EXAM DATE/TIME: 10/16/2017 13:01 [facility] COMPARISON: CHEST SINGLE AP, July 26, 2017, 8:44. INDICATIONS : Palpitation. MEDICAL HISTORY : Cerebrovascular disease. Osteoporosis. SURGICAL HISTORY : Umbilical hernia repair. ENCOUNTER: Initial ACUITY: 1 day PAIN SCORE: 8/10 LOCATION: Bilateral chest FINDINGS: Trace left pleural effusion and patchy left lower lung zone airspace disease. Mild diffuse interstiti al prominence. Cardiomediastinal contours are stable. Remainder of the exam is unchanged. CONCLUSION: 1. Trace stable left pleural effusion. 2. Patchy left lower lung zone airspace consolidation slightly progressed from prior exam. Anthony Cooper MD on October 16, 2017 at 13:44 Board Certified Radiologist. This report was verified electronically.
[2017-10-16] MEDS ORDERED: DIVA250T3 PO (13:57)
[2017-10-16 14:00] VITALS: BP 138/81; PULSE 64; RESP 20; O2SAT 100
[2017-10-16 15:15] VITALS: BP 142/78; PULSE 66; RESP 18; O2SAT 98
--- NOTE | 2017-10-16 15:40 | RADRPT ---
EXAM DATE/TIME: 10/16/2017 14:44 [facility] COMPARISON: CT CERVICAL SPINE W/O CONTRAST, July 24, 2017, 20:10. INDICATIONS : Fall yesterday. RADIATION DOSE: 12.36 CTDIvol (mGy) MEDICAL HISTORY : Skin cancer, Thyroid Disease. SURGICAL HISTORY : None. ENCOUNTER: Initial ACUITY: 1 day PAIN SCALE: 3/10 LOCATION: Bilateral neck TECHNIQUE: Volumetric scanning of the cervical spine was performed. Multiplanar reconstructions in the sagittal, coronal and oblique axial planes were performed. Using automated exposure control and adjustment o f the mA and/or kV according to patient size, radiation dose was kept as low as reasonably achievable to obtain optimal diagnostic quality images. DICOM format image data is available electronically f or review and comparison. FINDINGS: Vertebral body heights are maintained. Osseous structures are intact without evidence for acute bony fracture. Dens is intact. Sagittal alignment is maintained. There is a normal C1-2 relationship. Face ts are normally aligned. There is no significant prevertebral soft tissue hematoma. Redemonstration o f multilevel degenerative spondylosis from C3-C6 with posterior disc osteophytes at C3-4 effacing the anterior thecal sac. Central canal is otherwise patent. The No significant cervical adenopathy or gr oss mass. The thyroid appears unremarkable. Visualized lung apices are clear without pneumothorax. De nse bilateral carotid artery calcifications. CONCLUSION: 1. No acute fracture or subluxation. 2. Redemonstration of multilevel degenerative spondylosis most prominently at C3-6. Anthony Cooper MD on October 16, 2017 at 15:33 Board Certified Radiologist. This report was verified electronically.
--- NOTE | 2017-10-16 15:44 | RADRPT ---
EXAM DATE/TIME: 10/16/2017 14:44 [facility] COMPARISON: CT BRAIN W/O CONTRAST, July 24, 2017, 20:10. INDICATIONS : General weakness for one day. RADIATION DOSE: 35.57 CTDIvol (mGy) MEDICAL HISTORY : Thyroid Disease, Skin cancer. SURGICAL HISTORY : None. ENCOUNTER: Initial ACUITY: 1 day PAIN SCALE: 0/10 LOCATION: cranial TECHNIQUE: Multiple contiguous axial images were obtained of the head. Using automated exposure control and adj ustment of the mA and/or kV according to patient size, radiation dose was kept as low as reasonably a chievable to obtain optimal diagnostic quality images. DICOM format image data is available electro nically for review and comparison. FINDINGS: The appearance of the brain is stable. Moderate atrophic changes consistent with an aging brain are noted. Chronic microvascular ischemic disease is seen throughout the cerebral white matter. There is no evidence of acute infarct, hemorrhage, mass or edema. CONCLUSION: 1. No change since prior exam. 2. Aging brain with atrophy. 3. No evidence of acute infarct, hemorrhage, mass or edema. Harvey Stark MD on October 16, 2017 at 15:40 Board Certified Radiologist. This report was verified electronically.
[2017-10-16 15:45] VITALS: BP 134/62; PULSE 64; RESP 22; O2SAT 94
[2017-10-16 15:53] LABS: BLOOD, URINE NEG (NEG); COMMENT (UR) CULT NOT INDICATED; CULTURE IF INDICATED CULT NOT INDICATED; GLUCOSE,URINE NEG (NEG); KETONE, URINE TRACE mg/dL (NEG); MUCUS URINE FEW /lpf (OCC); NITRITE,URINE NEG (NEG); PH, URINE 5.5 (5.0-8.5); SQUAMOUS EPITHELIAL CELL URINE <1 /hpf (0-5); URINE COLOR YELLOW (YELLW/STRAW)
--- NOTE | 2017-10-16 17:29 | HHI.PR ---
Addendum to Inpatient Note Addendum Reason: Additional Documentation Additional Information From primary care outpatient: Pt has fired his home health and home health aids. He has been set up with [facility] and they offered to provide him with caregivers also and he has declined. He and have been given extensive info on GUY/NH but patient refuses to go anywhere but home. During last hospitalization, pt was determined to have dementia by the psychiatrist, however in the office he scores 29/30 on MMS testing, just makes poor decisions. May need repeat eval with psychiatry. I believe that patient is not safe to live alone at home--on his eval by case management at home he had several space heaters unattended (his heat had broken), he couldn't open containers for food without help, left the stove unattended during evaluation, etc. He has had numerous falls, is unsteady on his feet and frequently doesn't use his assistive devices. He feels that he can drive (despite not being able to hold his head up to see out the window). Would recommend at least GUY placement or 24 hour care at home. Frances Sandra MD Oct 16, 2017 17:29
--- NOTE | 2017-10-16 17:53 | HHI.HP ---
[facility] Service Family Medicine Primary Care Physician Frances Daly MD Admission Diagnosis generalized weakness Diagnoses: International Travel<30 Days: No Contact w/Intl Traveler<30days: No Known Affected Area: No History of Present Illness 87-year-old male with history of dementia and confusion. Recently hospitalized for 6 days in July. At that time he was diagnosed with Alzheimer's dementia with behavioral disturbance. The patient currently being interviewed with ex- in the room who still resides with the patient. She states the patient has been very combative and unpleasant. She has filed for divorce 6 months ago. Per the ex- and PCP Dr. 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 He has been set up with [facility] and they offered to provide him with caregivers also and he has declined. He and his exwife have been given extensive info on CARE HOME/NH but patient refuses to go anywhere but home. During last hospitalization, pt was determined to have dementia by the psychiatrist, however in the office he scores 29/30 on MMS testing, just makes poor decisions. The ex- states that the patient refuses all help. He refuses to file POA/living will paperwork. This morning, he fell around 1-2 AM per the ex-. She states he couldn't get up ("he can never get up.") and she called 911 who brought him here. Upon direct questioning, the patient denies any pain or problems. ROS negative x 10 including pain, cp, n/v/d, sob, fever, chills. He initially states, "I am home," but is easily redirected to acknowledge he is in the hospital. (Mark Angela MD, R3) Review of Systems Constitutional: DENIES: Fever, Chills (Mark Angela MD, R3) Past Family Social History Past Medical History Basal and squamous cell skin CA Radiation to neck 2001 because one of his skin cancers went to a lymph node Blepharospasms Kyphosis Scoliosis Torticollis Past Surgical History skin cancers removed - basal and squamous inguinal hernia repair x 2 Reported Medications Reported Meds & Active Scripts Active Reported Divalproex ER (Divalproex Sodium) 250 Mg Mindi 125 Mg PO BID (Mark Angela MD, R3) Allergies: Coded Allergies: No Known Allergies (Unverified Allergy, Unknown, 10/16/17) Active Ordered Medications Active Medications Sodium Chloride 1,000 ml @ 1,000 mls/hr Q1H ONCE IV Last administered on 13:03; Admin Dose 1,000 MLS/HR; Start 10/16/17 at 12:34; Stop 10/16/17 at 13:35; Status DC Sodium Chloride (NS Flush) 2 ml UNSCH PRN IVF Last administered on 10/16/17 13:01; Admin Dose 2 ML; Start 10/16/17 at 12:45 Family History Mother lived to be age 97 Denies any significant family medical history Social History Tobacco: smoked minimally in his 20's; none since then Alcohol: denies Patient no longer driving Per PCP: Pt has fired his home health and home health aids. He has been set up with [facility] and they offered to provide him with caregivers also and he has declined. He and have been given extensive info on CARE HOME/NH but patient refuses to go anywhere but home. I believe that patient is not safe to live alone at home--on his eval by case management at home he had several space heaters unattended (his heat had broken), he couldn't open containers for food without help, left the stove unattended during evaluation, etc. He has had numerous falls, is unsteady on his feet and frequently doesn't use his assistive devices. (Mark Angela MD, R3) Physical Exam Vital Signs Vital Signs Date Time Temp Pulse Resp B/P (MAP) Pulse Ox O2 Delivery O2 Flow Rate FiO2 10/16/17 15:45 64 22 134/62 (86) 94 Room Air 10/16/17 15:15 66 18 142/78 (99) 98 Room Air 10/16/17 14:00 64 20 138/81 (100) 100 Room Air 10/16/17 12:54 99 Room Air 10/16/17 12:54 97.4 64 18 156/88 (110) 98 Room Air 10/16/17 12:37 97.4 71 18 156/88 (110) 99 Physical Exam GENERAL: elderly male, NAD, somewhat cooperative. AAO. SKIN: Cool and dry. HEAD: Atraumatic. Normocephalic. No temporal or scalp tenderness. EYES: Pupils equal round and reactive. Extraocular motions intact. No scleral icterus. No injection or drainage. ENT: Nose without bleeding, purulent drainage or septal hematoma. Throat without erythema, tonsillar hypertrophy or exudate. Uvula midline. Airway patent. NECK: Trachea midline. No JVD or lymphadenopathy. Supple, nontender, no meningeal signs. CARDIOVASCULAR: Regular rate and rhythm without murmurs, gallops, or rubs. RESPIRATORY: Clear to auscultation. Breath sounds equal bilaterally. No wheezes , rales, or rhonchi. GASTROINTESTINAL: Abdomen soft, non-tender, nondistended. No hepato-splenomegaly , or palpable masses. No guarding. MUSCULOSKELETAL: Extremities without clubbing, cyanosis, or edema. No joint tenderness, effusion, or edema noted. No calf tenderness. Negative Homans sign bilaterally. NEUROLOGICAL: Awake and alert. At first, believed he was at home. Easily re- directed. Uncooperative with eye opening at this time. Recalled 3 objects (apple , simba, table.). Able to recite months of year forward, but not backward. Cranial nerves II through XII intact. Motor and sensory grossly within normal limits. Five out of 5 muscle strength in all muscle groups. Normal speech. Laboratory Laboratory Tests Test 10/16/17 12:50 10/16/17 15:08 White Blood Count 5.1 Red Blood Count 4.25 Hemoglobin 14.0 Hematocrit 40.9 Mean Corpuscular Volume 96.2 Mean Corpuscular Hemoglobin 32.9 Mean Corpuscular Hemoglobin Concent 34.1 Red Cell Distribution Width 14.9 Platelet Count 150 Mean Platelet Volume 8.5 Neutrophils (%) (Auto) 71.8 Lymphocytes (%) (Auto) 23.5 Monocytes (%) (Auto) 4.3 Eosinophils (%) (Auto) 0.2 Basophils (%) (Auto) 0.2 Neutrophils # (Auto) 3.7 Lymphocytes # (Auto) 1.2 Monocytes # (Auto) 0.2 Eosinophils # (Auto) 0.0 Basophils # (Auto) 0.0 CBC Comment DIFF FINAL Differential Comment Prothrombin Time 11.2 Prothromb Time International Ratio 1.1 Activated Partial Thromboplast Time 25.6 Blood Urea Nitrogen 28 Creatinine 0.96 Random Glucose 80 Total Protein 6.7 Albumin 3.4 Calcium Level 8.5 Magnesium Level 2.3 Alkaline Phosphatase 124 Aspartate Amino Transf (AST/SGOT) 52 Alanine Aminotransferase (ALT/SGPT) 54 Total Bilirubin 1.3 Sodium Level 142 Potassium Level 4.1 Chloride Level 107 Carbon Dioxide Level 31.1 Anion Gap 4 Estimat Glomerular Filtration Rate 74 Total Creatine Kinase 837 Creatine Kinase MB 23.0 Creatine Kinase MB % 2.7 Troponin I 0.04 Thyroid Stimulating Hormone 3rd Gen 1.700 Urine Color YELLOW Urine Turbidity CLEAR Urine pH 5.5 Urine Specific [place] 1.018 Urine Protein TRACE Urine Glucose (UA) NEG Urine Ketones TRACE Urine Occult Blood NEG Urine Nitrite NEG Urine Bilirubin NEG Urine Urobilinogen LESS THAN 2.0 Urine Leukocyte Esterase NEG Urine RBC 1 Urine WBC 1 Urine Squamous Epithelial Cells <1 Urine Mucus FEW Microscopic Urinalysis Comment CULT NOT INDICATED (Mark Angela MD, R3) Result Diagram: 10/16/17 1250 10/16/17 1250 Imaging Last Impressions Head CT 10/16/17 1234 Signed Impressions: Service Date/Time: Monday, October 16, 2017 14:44 - CONCLUSION: 1. No change since prior exam. 2. Aging brain with atrophy. 3. No evidence of acute infarct , hemorrhage, mass or edema. Harvey Stark MD Chest X-Ray 10/16/17 1234 Signed Impressions: Service Date/Time: Monday, October 16, 2017 13:01 - CONCLUSION: 1. Trace stable left pleural effusion. 2. Patchy left lower lung zone airspace consolidation slightly progressed from prior exam. Anthony Cooper MD Cervical Spine CT 10/16/17 1234 Signed Impressions: Service Date/Time: Monday, October 16, 2017 14:44 - CONCLUSION: 1. No acute fracture or subluxation. 2. Redemonstration of multilevel degenerative spondylosis most prominently at C3-6. Anthony Cooper MD (Mark Angela MD, R3) Caprini VTE Risk Assessment Caprini VTE Risk Assessment: Mod/High Risk (score >= 2) Caprini Risk Assessment Model Point Value = 1 Point Value = 2 Point Value = 3 Point Value = 5 Age 41-60 Minor surgery BMI > 25 kg/m2 Swollen legs Varicose veins or History of unexplained or recurrent spontaneous Oral contraceptives or hormone replacement Sepsis (< 1 month) Serious lung disease, including pneumonia (< 1 month) Abnormal pulmonary function Acute myocardial infarction Congestive heart failure (< 1 month) History of inflammatory bowel disease Medical patient at bed rest Age 61-74 Arthroscopic surgery Major open surgery (> 45 min) Laparoscopic surgery (> 45 min) Malignancy Confined to bed (> 72 hours) Immobilizing plaster cast Central venous access Age >= 75 History of VTE Family history of VTE Factor V Leiden Prothrombin 30807A Lupus anticoagulant Anticardiolipin antibodies Elevated serum homocysteine Heparin-induced thrombocytopenia Other congenital or acquired thrombophilia Stroke (< 1 month) Elective arthroplasty Hip, pelvis, or leg fracture Acute spinal cord injury (< 1 month) Prophylaxis Regimen Total Risk Factor Score Risk Level Prophylaxis Regimen 0-1 Low Early ambulation 2 Moderate Order ONE of the following: *Sequential Compression Device (SCD) *Heparin 5000 units SQ BID 3-4 Higher Order ONE of the following medications: *Heparin 5000 units SQ TID *Enoxaparin/Lovenox 40 mg SQ daily (WT < 150 kg, CrCl > 30 mL/min) *Enoxaparin/Lovenox 30 mg SQ daily (WT < 150 kg, CrCl > 10-29 mL/min) *Enoxaparin/Lovenox 30 mg SQ BID (WT < 150 kg, CrCl > 30 mL/min) AND/OR *Sequential Compression Device (SCD) 5 or more Highest Order ONE of the following medications: *Heparin 5000 units SQ TID (Preferred with Epidurals) *Enoxaparin/Lovenox 40 mg SQ daily (WT < 150 kg, CrCl > 30 mL/min) *Enoxaparin/Lovenox 30 mg SQ daily (WT < 150 kg, CrCl > 10-29 mL/min) *Enoxaparin/Lovenox 30 mg SQ BID (WT < 150 kg, CrCl > 30 mL/min) AND *Sequential Compression Device (SCD) (Mark Angela MD, R3) Assessment and Plan Assessment and Plan 87-year-old male with history of Alzheimer's dementia with behavioral disturbances presents with weakness after falling and inability to care for himself. Code Status Unclear CODE STATUS, patient uncooperative and refuses to answer (Mark Angela MD, R3) Attending Attestation THIS CASE WAS DISCUSSED WITH THE RESIDENT PHYSICIAN. I HAVE REVIEWED THE RECORD AND AGREE WITH THE ABOVE NOTE AND PLAN OF CARE WAS DISCUSSED. I HAVE AUTHORIZED THE ORDER FOR PLACEMENT IN OUT-PATIENT OBSERVATION STATUS. (Saul Hi MD) Problem List: (1) Alzheimer's dementia with behavioral disturbance ICD Codes: G30.8 - Other Alzheimer's disease; F02.81 - Dementia in other diseases classified elsewhere with behavioral disturbance Status: Chronic Plan: Previously evaluated by psychiatry, Dr. Urena Psychiatry consulted Case management consulted to help with placement Recommended this high potency antipsychotic such as Risperdal if episodes persist PCP, Dr. 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 He has been set up with [facility] and they offered to provide him with caregivers also and he has declined. He and have been given extensive info on GUY/NH but patient refuses to go anywhere but home... I believe that patient is not safe to live alone at home--on his eval by case management at home he had several space heaters unattended (his heat had broken), he couldn't open containers for food without help, left the stove unattended during evaluation, etc. He has had numerous falls, is unsteady on his feet and frequently doesn't use his assistive devices. He feels that he can drive ( despite not being able to hold his head up to see out the window). Would recommend at least GUY placement or 24 hour care at home." (2) Generalized weakness ICD Codes: R53.1 - Weakness Status: Acute Plan: Physical therapy consult (3) Elevated CK ICD Codes: R74.8 - Abnormal levels of other serum enzymes Status: Acute Plan: Mildly elevated CK Creatinine within normal limits IV fluids at maintenance rate for now, likely discontinue tomorrow (4) FEN/PPX Status: Acute Plan: Fluids: NS at 100 ml/hr Electrolyte: monitor and replace prn Nutrition: regular diet PPX: heparin, scds (Mark Angela MD, R3) Problem Qualifiers (1) Alzheimer's dementia with behavioral disturbance: Qualified Codes: G30.9 - Alzheimer's disease, unspecified; F02.81 - Dementia in other diseases classified elsewhere with behavioral disturbance Mark Angela MD, R3 Oct 16, 2017 17:53 Saul Hi MD Oct 17, 2017 18:03
[2017-10-16] MEDS ORDERED: ONDANSETRON HCL 4 MG/2 ML VIAL IVP PRN (18:30)
[2017-10-16] MEDS ORDERED: LACTULOSE SYRUP 20 GM/30 ML CUP PO PRN (18:30)
[2017-10-16] MEDS ORDERED: MAGNESIUM HYDROXIDE SUSP 30 ML CUP PO PRN (18:30)
[2017-10-16] MEDS ORDERED: SENNOSIDES 8.6 MG TAB PO PRN (18:30)
[2017-10-16] MEDS ORDERED: SODIUM CHLORIDE 0.9% FLUSH 10 ML FLUSH IV FLUSH PRN (18:30)
[2017-10-16] MEDS ORDERED: ACETAMINOPHEN 325 MG TAB PO PRN (18:30)
[2017-10-16] MEDS ORDERED: BISACODYL 10 MG SUPP RECTAL PRN (18:30)
[2017-10-16] MEDS ORDERED: NALOXONE HCL 0.4 MG/ML AMP IV PUSH PRN (18:30)
[2017-10-16] MEDS: HEPARIN SODIUM - SQ 10,000 UNITS/ML VIAL SQ SCH (19:03)
[2017-10-16] MEDS: SODIUM CHLOR 0.9% 1000 ML INJ 1,000 ML IV SCH (19:03)
[2017-10-16] MEDS: SODIUM CHLORIDE 0.9% FLUSH 10 ML FLUSH IV FLUSH SCH (21:00)
[2017-10-16] MEDS: DOCUSATE SODIUM 50 MG/SENNA 8.6 MG TAB PO SCH (21:00)
[2017-10-16] MEDS ORDERED: DIVALPROEX SODIUM E.R. 250 MG TAB PO SCH (21:00)
[2017-10-16 21:42] VITALS: BP 166/88; PULSE 78; RESP 18; TEMP 96.3; O2SAT 94
[2017-10-17 00:17] VITALS: BP 161/84; PULSE 72; RESP 18; TEMP 97; O2SAT 98
[2017-10-17 03:50] VITALS: BP 162/79; PULSE 67; RESP 18; TEMP 96.3; O2SAT 98
[2017-10-17] MEDS: SODIUM CHLOR 0.9% 1000 ML INJ 1,000 ML IV SCH ×2 (04:16→22:06)
[2017-10-17] MEDS: HEPARIN SODIUM - SQ 10,000 UNITS/ML VIAL SQ SCH ×2 (06:00→17:27)
[2017-10-17 07:19] LABS: AUTOMATED NEUTROPHIL # 2.1 TH/MM3 (1.8-7.7); EOSINOPHIL % 0.9 % (0.0-4.0); HEMATOCRIT 38.1 % (39.0-51.0); HEMO FLAGS DIFF FINAL; MEAN CELL VOLUME 97.2 FL (80.0-100.0); MEAN CORPUSCULAR HEMOGLOBIN 32.8 PG (27.0-34.0); MEAN CORPUSCULAR HGB CONC 33.8 % (32.0-36.0); MONO % 3.5 % (0.0-8.0); NEUT % 64.6 % (16.0-70.0); PLATELET COUNT 126 TH/MM3 (150-450); RED BLOOD COUNT 3.92 MIL/MM3 (4.50-5.90); RED CELL DISTRIBUTION WIDTH 15.3 % (11.6-17.2); WHITE BLOOD COUNT 3.2 TH/MM3 (4.0-11.0)
[2017-10-17 07:47] LABS: ALT (GPT) 42 U/L (12-78); ANION GAP 5 MEQ/L (5-15); AST (GOT) 46 U/L (15-37); BICARBONATE 29.2 MEQ/L (21.0-32.0); BLOOD UREA NITROGEN 22 MG/DL (7-18); CHLORIDE 110 MEQ/L (98-107); GLOMERULAR FILTRATION RATE 138 ML/MIN (>89); POTASSIUM 3.5 MEQ/L (3.5-5.1); SODIUM (NA) 144 MEQ/L (136-145)
[2017-10-17 07:59] LABS: ALKALINE PHOSPHATASE 104 U/L (45-117); CREATINE KINASE 440 U/L (39-308); TOTAL BILIRUBIN ADULT 0.6 MG/DL (0.2-1.0)
[2017-10-17 08:02] VITALS: BP 174/91; PULSE 80; RESP 18; TEMP 96.5; O2SAT 95
[2017-10-17 08:19] LABS: CKMB 15.1 NG/ML (0.5-3.6)
[2017-10-17] MEDS: DOCUSATE SODIUM 50 MG/SENNA 8.6 MG TAB PO SCH ×2 (09:00→22:06)
[2017-10-17] MEDS: SODIUM CHLORIDE 0.9% FLUSH 10 ML FLUSH IV FLUSH SCH ×2 (09:00→21:00)
--- NOTE | 2017-10-17 09:56 | HHI.FPPN ---
Subjective Remarks FM Attending Note: Patient seen and examined. S: Chart and all resident physician notes reviewed. In summary this is a 87 year old male who was admitted with an admission diagnosis of Generalized Weakness. This patient lives by himself in a private home and his assisted episodically by his ex-. He apparently fell the night prior to admission and was unable to get up off the floor. EMS was called by his ex- when she arrived at the home and he was brought to the emergency room for evaluation. No acute injuries were noted. The patient has a history of dementia. He no longer drives. He is at a high risk for further falls and does not appear to be capable of meeting his instrumental activities of daily living independently. Objective Vitals Vital Signs Date Time Temp Pulse Resp B/P (MAP) Pulse Ox O2 Delivery O2 Flow Rate FiO2 10/17/17 08:02 96.5 80 18 174/91 (118) 95 10/17/17 03:50 96.3 67 18 162/79 (106) 98 10/17/17 00:17 97.0 72 18 161/84 (109) 98 10/16/17 21:42 96.3 78 18 166/88 (114) 94 10/16/17 19:28 10/16/17 15:45 64 22 134/62 (86) 94 Room Air 10/16/17 15:15 66 18 142/78 (99) 98 Room Air 10/16/17 14:00 64 20 138/81 (100) 100 Room Air 10/16/17 12:54 99 Room Air 10/16/17 12:54 97.4 64 18 156/88 (110) 98 Room Air 10/16/17 12:37 97.4 71 18 156/88 (110) 99 I/O 10/16/17 10/16/17 10/16/17 10/17/17 10/17/17 10/17/17 07:00 15:00 23:00 07:00 15:00 23:00 Intake Total 1000 ml Output Total 400 ml Balance 600 ml Intake IV Total 1000 ml Output Urine Total 400 ml # Voids 1 Result Diagram: 10/17/17 0634 10/17/17 0634 Other Results Item Value Date Time Magnesium Level 2.3 MG/DL 10/16/17 1250 Total Bilirubin 1.3 MG/DL H 10/16/17 1250 Aspartate Amino Transf (AST/SGOT) 52 U/L H 10/16/17 1250 Alanine Aminotransferase (ALT/SGPT) 54 U/L 10/16/17 1250 Alkaline Phosphatase 124 U/L H 10/16/17 1250 Total Creatine Kinase 837 U/L H 10/16/17 1250 Creatine Kinase MB 23.0 NG/ML H 10/16/17 1250 Total Creatine Kinase 440 U/L H 10/17/17 0634 Creatine Kinase MB % 2.7 % 10/16/17 1250 Troponin I 0.04 NG/ML 10/16/17 1250 Total Protein 6.7 GM/DL 10/16/17 1250 Albumin 3.4 GM/DL 10/16/17 1250 Thyroid Stimulating Hormone 3rd Gen 1.700 uIU/ML 10/16/17 1250 Mean Corpuscular Volume 96.2 FL 10/16/17 1250 Urine Specific [place] 1.018 10/16/17 1508 Urine Occult Blood NEG 10/16/17 1508 Urine Nitrite NEG 10/16/17 1508 Urine Leukocyte Esterase NEG 10/16/17 1508 Imaging Last [address] 10/16/17 1234 Signed Impressions: Service Date/Time: Monday, October 16, 2017 14:44 - CONCLUSION: 1. No change since prior exam. 2. Aging brain with atrophy. 3. No evidence of acute infarct , hemorrhage, mass or edema. Harvey Stark MD Chest X-Ray 10/16/17 1234 Signed Impressions: Service Date/Time: Monday, October 16, 2017 13:01 - CONCLUSION: 1. Trace stable left pleural effusion. 2. Patchy left lower lung zone airspace consolidation slightly progressed from prior exam. Anthony Cooper MD Cervical Spine CT 10/16/17 1234 Signed Impressions: Service Date/Time: Monday, October 16, 2017 14:44 - CONCLUSION: 1. No acute fracture or subluxation. 2. Redemonstration of multilevel degenerative spondylosis most prominently at C3-6. Anthony Cooper MD Objective Remarks O. CONSTITUTIONAL/GEN: normally nourished, in NAD. EYES: conjunctiva normal, PERRLA, EOMI. ENT: Mouth and pharynx normal. NECK: thyroid midline, carotids symmetrical. Neck is significantly flexed and fixed; difficult to face forward when sitting or standing. LUNGS: clear A-P, respiratory effort is normal. CARDIOVASCULAR: RR without murmur or gallop. No significant edema. GI/ABD: soft without masses, without organomegaly. NEURO: No focal deficits. Significant proximal muscle weakness of his LE's. Gait is very unsteady, wide-based. With kyphosis and neck flexion he is unable to look forward as he walks. MUSC: marked kyphosis with associated neck flexion. Extremities are normal in appearance. PSYCH/MENTAL STATUS: Alert and oriented to person. Reports he is retired. 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 No delusions or hallucinations appreciated. A/P Assessment and Plan 87-year-old male with history of Alzheimer's dementia with behavioral disturbances presents with weakness after falling and inability to care for himself. Problem List: (1) Alzheimer's dementia with behavioral disturbance ICD Codes: G30.8 - Other Alzheimer's disease; F02.81 - Dementia in other diseases classified elsewhere with behavioral disturbance Status: Chronic Plan: Previously evaluated by psychiatry, Dr. Urena Psychiatry consulted Case management consulted to help with placement Recommended this high potency antipsychotic such as Risperdal if episodes persist PCP, Dr. 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 He has been set up with [facility] and they offered to provide him with caregivers also and he has declined. He and have been given extensive info on [facility]/NH but patient refuses to go anywhere but home... I believe that patient is not safe to live alone at home--on his eval by case management at home he had several space heaters unattended (his heat had broken), he couldn't open containers for food without help, left the stove unattended during evaluation, etc. He has had numerous falls, is unsteady on his feet and frequently doesn't use his assistive devices. He feels that he can drive ( despite not being able to hold his head up to see out the window). Would recommend at least GUY placement or 24 hour care at home. 10/17/17 This patient has a past history of dementia. Mental status testing in the past has been only mildly abnormal. Behavioral problems have been noted but no delusions or hallucinations. 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 Psychiatric consultation pending. This patient is a high risk for further injuries from falls due to gait instability. He is functionally dependent in meeting his IADL's and I would have concern that he will have difficulty with basic ADL's; bathing/grooming/ safely transferring. (2) Generalized weakness ICD Codes: R53.1 - Weakness Status: Acute Plan: Physical therapy consult (3) Elevated CK ICD Codes: R74.8 - Abnormal levels of other serum enzymes Status: Acute Plan: Mildly elevated CK Creatinine within normal limits IV fluids at maintenance rate for now, likely discontinue tomorrow (4) FEN/PPX Status: Acute Plan: Fluids: NS at 100 ml/hr Electrolyte: monitor and replace prn Nutrition: regular diet PPX: heparin, scds Problem Qualifiers (1) Alzheimer's dementia with behavioral disturbance: Qualified Codes: G30.9 - Alzheimer's disease, unspecified; F02.81 - Dementia in other diseases classified elsewhere with behavioral disturbance Saul Hi MD Oct 17, 2017 09:56
[2017-10-17] MEDS: DIVALPROEX SODIUM SPRINKLES 125 MG CAP PO SCH ×2 (10:00→22:06)
[2017-10-17 11:41] VITALS: BP 132/77; PULSE 90; RESP 19; TEMP 97.7; O2SAT 93
--- NOTE | 2017-10-17 12:09 | PD.PSY.CON ---
Provisional Diagnosis Admission Date Oct 16, 2017 at 16:48 [place]. Dementia with behavioral disturbances History of Present Illness Service Psychiatry Consult Requested By Medical team Reason for Consult Dementia Primary Care Physician Frances Daly MD HPI The patient is a 87-year-old man, domiciled with his ex- in his house in [facility], retired, with psychiatric history of dementia, no previous psychiatric hospitalizations, no previous suicidal attempts, he has been treated with Depakote 125 mg twice a day for behavioral dysregulation, he was seen by Dr. Urena 2 weeks ago due to agitation, he was cleared, documentation reviewed, who presents to the emergency department via EMS for evaluation of generalized weakness. According to EMS, the patient's ex- moved out 1 week ago. He now lives by himself. She does and help him care for himself for several hours every day. However, she came today around 11 AM and he was lying on the floor. He fell from time yesterday or last night and has been lying on the floor since. The patient has a history of thyroid disease, dementia. The patient denies any pain. He states that he felt weak yesterday and then fell. The patient has history of dementia. He is alert and oriented to person and place, but not time. Patient denies any pain. According to EMS, when they got there today, they had to help him off the floor. The patient does not recall how long he has been there. Moderate severity. No exacerbating or alleviating factors. He and his exwife have been given extensive info on [facility] but patient refuses to go anywhere but home. During last hospitalization, pt was determined to have dementia by the psychiatrist, however in the office he scores 29/30 on MMS testing, just makes poor decisions. The ex- states that the patient refuses all help. He refuses to file POA/living will paperwork. This morning, he fell around 1-2 AM per the ex-. She states he couldn't get up ("he can never get up.") and she called 911 who brought him here. On psychiatric evaluation today patient is found calm, cooperative, a little bit irritable. Was able to explain that the reason his here in the hospital is because he has been falling and he has been very weak. The patient described his mood as "not unhappy". Depressive symptoms, he denies anhedonia, he denies hopelessness, he denies episodes, he denies suicidal and homicidal ideation, he denies visual and auditory hallucinations. She reports that he lives alone, and his ex- is the one taking care of him in most of his daily life activities. Patient knows that he is in the hospital, but he doesn't know what town, does not know today's date, says that today is July 2017. She was able to repeat black, car judgment, was unable to remember distant works 5 minutes later. Able to spell [place], but fails backward, same that he is able to repeat the days of the week, but is unable to list them backward. She reports that he enjoyed his life in 30% of the time. Patient denies the use of illicit drugs and alcohol. He denies psychiatric family history. His ex-, Brandie Ac, contacted by phone, , the patient has been progressively declining in his cognition and physical abilities. He says that she has to take care of him in most of his daily life activities. She says that it has been everyday more difficult to deal with him "because he is a very cheap person , and his judgment is also deteriorating". 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 She says that she finally him about a week ago and she doesn't know ages can be able to continue taking care of him. She is open to hear about a fpc for the patient. Review of Systems Constitutional: DENIES: Diaphoretic episodes, Fatigue, Fever, Weight gain, Weight loss, Chills, Dizziness, Change in appetite, Night Sweats Endocrine: DENIES: Heat/cold intolerance, Polydipsia, Polyuria, Polyphagia Eyes: DENIES: Blurred vision, Diplopia, Eye inflammation, Eye pain, Vision loss , Photosensitivity, Double Vision Ears, nose, mouth, throat: DENIES: Tinnitus, Hearing loss, Vertigo, Nasal discharge, Oral lesions, Throat pain, Hoarseness, Ear Pain, Running Nose, Epistaxis, Sinus Pain, Toothache, Odynophagia Respiratory: DENIES: Apneas, Cough, Snoring, Wheezing, Hemoptysis, Sputum production, Shortness of breath Cardiovascular: DENIES: Chest pain, Palpitations, Syncope, Dyspnea on Exertion , PND, Lower Extremity Edema, Orthopnea, Claudication Gastrointestinal: DENIES: Abdominal pain, Black stools, Bloody stools, Constipation, Diarrhea, Nausea, Vomiting, Difficulty Swallowing, Anorexia Genitourinary: DENIES: Sexual dysfunction, Urinary frequency, Urinary incontinence, Urgency, Hematuria, Dysuria, Nocturia, Penile Discharge, Testicular Pain, Testicular Swelling Musculoskeletal: DENIES: Joint pain, Muscle aches, Stiffness, Joint Swelling, Back pain, Neck pain Integumentary: DENIES: Abnormal pigmentation, Nail changes, Pruritus, Rash Neurologic: DENIES: Abnormal gait, Headache, Localized weakness, Paresthesias, Seizures, Speech Problems, Tremor, Poor Balance Psychiatric: COMPLAINS OF: Confusion, DENIES: Anxiety, Mood changes, Depression , Hallucinations, Agitation, Suicidal Ideation, Homicidal Ideation, Delusions Past Family Social History Coded Allergies: No Known Allergies (Unverified Allergy, Unknown, 10/16/17) Reported Medications Divalproex ER (Divalproex ER) 250 Mg Mindi, 125 MG PO BID for Control Seizures, #30 TAB 0 Refills 10/16/17 Discontinued Scripts Aspirin (Aspirin Low Strength) 81 Mg Chew, 81 MG CHEW DAILY for possible TIA MDD 81 for 30 Days, #30 EA 3 Refills Prov:Yang Baez MD 07/30/17 Current Medications Medications (Trade) Dose Ordered Sig/Randa Route Start Time Stop Time Status Last Admin (NS Flush) 2 ml UNSCH PRN IVF 10/16/17 12:45 10/16/17 13:01 Sodium Chloride 1,000 ml @ 100 mls/hr Q10H IV 10/16/17 18:16 10/17/17 04:16 (NS Flush) 2 ml UNSCH PRN IV FLUSH 10/16/17 18:30 (NS Flush) 2 ml BID IV FLUSH 10/16/17 21:00 (Tylenol) 650 mg Q4H PRN PO 10/16/17 18:30 (Zofran Inj) 4 mg Q6H PRN IVP 10/16/17 18:30 (Heparin Inj) 5,000 units Q12H SQ 10/16/17 18:30 10/17/17 06:00 (Narcan Inj) 0.4 mg UNSCH PRN IV PUSH 10/16/17 18:30 (Anabella-Colace) 1 tab BID PO 10/16/17 21:00 (Milk Of Magnesia Liq) 30 ml Q12H PRN PO 10/16/17 18:30 (Senokot) 17.2 mg Q12H PRN PO 10/16/17 18:30 (Dulcolax Supp) 10 mg DAILY PRN RECTAL 10/16/17 18:30 (Lactulose Liq) 30 ml DAILY PRN PO 10/16/17 18:30 (Depakote Sprinkles) 125 mg BID PO 10/17/17 10:00 Family Psych History Denies family psychiatric history Social History Patient was born and raised in [place], he lives in [facility] with his ex-, his highest level of education is 11th grade Patient's Strengths (min. 2) Support of his ex- Physical Exam Patient has marked psychomotor retardation, but no tremors, no EPS, no withdrawal symptoms present Vital Signs Vital Signs Date Time Temp Pulse Resp B/P (MAP) Pulse Ox O2 Delivery O2 Flow Rate FiO2 10/17/17 08:02 96.5 80 18 174/91 (118) 95 10/16/17 15:45 Room Air Lab Results Test 10/16/17 12:50 10/16/17 15:08 10/17/17 06:34 White Blood Count 5.1 TH/MM3 3.2 TH/MM3 Red Blood Count 4.25 MIL/MM3 3.92 MIL/MM3 Hemoglobin 14.0 GM/DL 12.9 GM/DL Hematocrit 40.9 % 38.1 % Mean Corpuscular Volume 96.2 FL 97.2 FL Mean Corpuscular Hemoglobin 32.9 PG 32.8 PG Mean Corpuscular Hemoglobin Concent 34.1 % 33.8 % Red Cell Distribution Width 14.9 % 15.3 % Platelet Count 150 TH/MM3 126 TH/MM3 Mean Platelet Volume 8.5 FL 9.0 FL Neutrophils (%) (Auto) 71.8 % 64.6 % Lymphocytes (%) (Auto) 23.5 % 30.0 % Monocytes (%) (Auto) 4.3 % 3.5 % Eosinophils (%) (Auto) 0.2 % 0.9 % Basophils (%) (Auto) 0.2 % 1.0 % Neutrophils # (Auto) 3.7 TH/MM3 2.1 TH/MM3 Lymphocytes # (Auto) 1.2 TH/MM3 1.0 TH/MM3 Monocytes # (Auto) 0.2 TH/MM3 0.1 TH/MM3 Eosinophils # (Auto) 0.0 TH/MM3 0.0 TH/MM3 Basophils # (Auto) 0.0 TH/MM3 0.0 TH/MM3 CBC Comment DIFF FINAL DIFF FINAL Differential Comment Prothrombin Time 11.2 SEC Prothromb Time International Ratio 1.1 RATIO Activated Partial Thromboplast Time 25.6 SEC Blood Urea Nitrogen 28 MG/DL 22 MG/DL Creatinine 0.96 MG/DL 0.56 MG/DL Random Glucose 80 MG/DL 64 MG/DL Total Protein 6.7 GM/DL 5.5 GM/DL Albumin 3.4 GM/DL 2.8 GM/DL Calcium Level 8.5 MG/DL 8.1 MG/DL Magnesium Level 2.3 MG/DL Alkaline Phosphatase 124 U/L 104 U/L Aspartate Amino Transf (AST/SGOT) 52 U/L 46 U/L Alanine Aminotransferase (ALT/SGPT) 54 U/L 42 U/L Total Bilirubin 1.3 MG/DL 0.6 MG/DL Sodium Level 142 MEQ/L 144 MEQ/L Potassium Level 4.1 MEQ/L 3.5 MEQ/L Chloride Level 107 MEQ/L 110 MEQ/L Carbon Dioxide Level 31.1 MEQ/L 29.2 MEQ/L Anion Gap 4 MEQ/L 5 MEQ/L Estimat Glomerular Filtration Rate 74 ML/MIN 138 ML/MIN Total Creatine Kinase 837 U/L 440 U/L Creatine Kinase MB 23.0 NG/ML 15.1 NG/ML Creatine Kinase MB % 2.7 % 3.4 % Troponin I 0.04 NG/ML Thyroid Stimulating Hormone 3rd Gen 1.700 uIU/ML Urine Color YELLOW Urine Turbidity CLEAR Urine pH 5.5 Urine Specific [place] 1.018 Urine Protein TRACE mg/dL Urine Glucose (UA) NEG mg/dL Urine Ketones TRACE mg/dL Urine Occult Blood NEG Urine Nitrite NEG Urine Bilirubin NEG Urine Urobilinogen LESS THAN 2.0 MG/DL Urine Leukocyte Esterase NEG Urine RBC 1 /hpf Urine WBC 1 /hpf Urine Squamous Epithelial Cells <1 /hpf Urine Mucus FEW /lpf Microscopic Urinalysis Comment CULT NOT INDICATED Mental Status Examination Appearance: Appropriate Consciousness: Alert Orientation: Person, Place, Date/Time (partially) Motor Activity: Normal gait Speech: Unremarkable Language: Adequate Fund of Knowledge: Inadequate Attention and Concentration: Inadequate Memory: Impaired Mood: Appropriate Affect: Irritable Thought Process & Associations: Intact Thought Content: Appropriate Hallucination Type: None Delusion Type: None Suicidal Ideation: No Suicidal Plan: No Suicidal Intention: No Homicidal Ideation: No Homicidal Plan: No Homicidal Intention: No Insight: Fair Judgment: Impulsive Assessment & Plan Problem List: (1) Dementia in other diseases classified elsewhere with behavioral disturbance ICD Codes: F02.81 - Dementia in other diseases classified elsewhere with behavioral disturbance Assessment & Plan: On psychiatric evaluation today the patient is found calm, cooperative, a little bit irritable and demanding. The patient denies depressive symptoms, he denies anxiety, radha and psychosis. The patient denies suicidal and homicidal ideation, he denies visual and auditory hallucinations. Patient is just partially oriented in time and place, with deficits in recent and immediate recall, concentration, executive function, but quite conserve abstraction and language skills the moment of this evaluation. Folstein MMS is 23/30, what is congruent with moderate to severe neurocognitive disorder. He has been diagnosed with Alzheimer's disease 2 years ago, as per ex -, who is at the same time health care by proxy, and lives and take care of him. Patient cognition has been progressively declining in the last 6 months point that the patient can barely take care of himself and make any important decision without lack of judgment. At the moment of this evaluation I did not perceive any prominent paranoia, no agitation, no aggressive behavior or hostility. He has been treated with Depakote 125 mg twice a day for behavioral dysregulation, reportedly with positive response side effects. He might benefit of a low dose of antipsychotic, for example Risperdal 0.25/0.5 mg twice a day help with impulse control and also to prevent delirium. Also can benefit of Aricept 5 mg, Namenda 5 mg daily to slower progression of dementia. He does not meet criteria for involuntary admission at this moment. Patient actually could benefit of a consult to palliative care to help with goals of care, assignation of surrogated decision maker and also with potential placement. Brief supportive psychotherapy, motivation and psychoeducation provided. We will follow-up. Assessment & Plan Estimated LOS: days Jerman,Misbah B. MD Oct 17, 2017 12:09
[2017-10-17 16:18] VITALS: BP 121/61; PULSE 93; RESP 18; TEMP 97.5; O2SAT 83
[2017-10-17 21:03] VITALS: BP 122/59; PULSE 90; RESP 20; TEMP 98.5; O2SAT 91
[2017-10-18 00:50] VITALS: BP 122/80; PULSE 76; RESP 20; TEMP 98.2; O2SAT 95
[2017-10-18 05:07] VITALS: BP 140/70; PULSE 86; RESP 20; TEMP 96.6; O2SAT 93
[2017-10-18] MEDS: HEPARIN SODIUM - SQ 10,000 UNITS/ML VIAL SQ SCH ×2 (05:51→17:51)
[2017-10-18 07:04] LABS: HEMATOCRIT 42.1 % (39.0-51.0); MEAN CELL VOLUME 96.7 FL (80.0-100.0); MEAN CORPUSCULAR HEMOGLOBIN 32.2 PG (27.0-34.0); MEAN CORPUSCULAR HGB CONC 33.3 % (32.0-36.0); PLATELET COUNT 118 TH/MM3 (150-450); RED BLOOD COUNT 4.35 MIL/MM3 (4.50-5.90); RED CELL DISTRIBUTION WIDTH 15.1 % (11.6-17.2); REVIEW FLAG FINAL; WHITE BLOOD COUNT 2.4 TH/MM3 (4.0-11.0)
[2017-10-18 07:32] VITALS: BP 141/72; PULSE 77; RESP 20; TEMP 96.5; O2SAT 92
[2017-10-18] MEDS: DOCUSATE SODIUM 50 MG/SENNA 8.6 MG TAB PO SCH ×2 (08:58→21:00)
[2017-10-18] MEDS: DIVALPROEX SODIUM SPRINKLES 125 MG CAP PO SCH ×2 (08:58→23:10)
[2017-10-18] MEDS: SODIUM CHLORIDE 0.9% FLUSH 10 ML FLUSH IV FLUSH SCH ×2 (09:00→23:10)
[2017-10-18] MEDS: SODIUM CHLOR 0.9% 1000 ML INJ 1,000 ML IV SCH ×2 (09:03→23:10)
--- NOTE | 2017-10-18 11:40 | PD.CONS ---
Consult Service Palliative Care Consult Requested By Dr. Seema MD. . Primary Care Physician Frances Daly MD. . Reason for Consultation a. To assist with evaluation and management of symptoms including: confusion and debility b. To assist medical decision maker(s) with: better understanding of current medical conditions; weighing benefits/burdens of medical treatment options; making medical treatment decisions. . HPI History of Present Illness Patient is an 87 year old male with a past medical history significant for Alzheimer's dementia with behavioral disturbances, as well as kyphosis, scoliosis, blepharospasm, squamous cell carcinoma of the skin. The patient presented to [facility] on 10/16/17 via EMS for evaluation of generalized weakness. The patient's ex alerted EMS when she came to check on him around 11am and found him lying on the floor unable to get up. Apparently the patient had fell the sometime the day before and had been lying on the floor since. The patient could not recall the duration in which he had been lying on the floor, at the time of arrival to the ED he was oriented to person and to place, but not to time. Patient denied any pain at that time. * ED workup included the following: Vital signs: T:97.5, HR:63, RR:18, BP:140/65 , SPO2:94%. CBC, coags, and U/A were unremarkable, BUN mildly elevated, Total Bilirubin:1.3, AST:52, ALT:54, Alk Phos:124, Troponin:0.04, Total CK:837, CK- MB23. Head CT: Negative for any acute findings, aging brain with atrophy noted, no change from prior exam. Chest CXR: Trace stable left pleural effusion, patchy left lower lung zone airspace consolidation slightly progressed from prior exam. Cervical spine CT: no acute fracture or subluxation. The patient was admitted for generalized weakness to the family medicine service. * 10/17/17: Psychiatry was consulted to evaluate patient for dementia. Dr. Carreon evaluated the patient, the patient's Folstein MMS was 23/30 demonstrating moderate to severe neurocognitive disorder, however the patient did not exhibit any prominent symptoms to meet criteria for involuntary admission. Recommendations for low dose Risperdal to aid with impulse control and to prevent delirium, as well as for Aricept and Namenda to slow the progression of dementia. Also recommendations for Palliative Care consult were made to assist with goals of care. Of note the patient was recently hospitalized from 07/24/17-07/30/17 for evaluation of a fall, he had no loss of consciousness, however his reported that the patient was confused and became combative. The patient was admitted to rule out TIA, rhabdomyolysis, rib fractures, pneumothorax, and transient confusion. Neurology was consulted to evaluate the patient for possible TIA and confusion, diagnostic imaging completed was negative, clinical assessment was not significant, no further neurological workup was recommended, and neurology signed off. Patient remained in the hospital for several days for further monitoring secondary to his age, injuries sustained due to his mechanical fall, and rhabdomyolysis. During that time the patient had ongoing episodes of transient confusion, the patient made several statements regarding his mistrust for his , at that time his had expressed concerns for dementia and requested a formal evaluation, psychiatry and neuropsychiatry were consulted. Psychiatry evaluated the patient and determined his symptoms were consistent with dementia with a recommendation to initiate low dose Risperdal if delirium symptoms persist. Neuropsychology evaluated on 07/30/17 the patient and determined that although the patient was demonstrating some neurocognitive difficulties, the patient still maintained some cognitive capacity to make decisions. The patient was cleared for discharge by the consultants involved in his case, the medical team recommended discharge to a fpc facility at that time however the patient was refusing, the patient continued to express mistrust for his , stating he wanted to go home but she was him. The patient eventually agreed to discharge to a SNF and was discharged to [facility] on 07/30/17. The patient remained in [facility] for 6 weeks, and subsequently was discharged home with home health. The patient's primary care provider Dr. Daly, documented that there has been ongoing issues between the patient and his regarding his capability to care for himself on his own. Upon clinical examination recently in Dr. Daly's office the patient only demonstrated mild deficits on MMS, scoring 29 /30, the patient has consistently demonstrated poor decision making, however, it was determined that he seemingly was able to make decisions on his own prior to his last hospitalization. According to documentation reviewed in the EMR, the patient and his now ex have been recently going through a divorce, the patient's ex recently moved out of the home approximately a week ago, and the patient has been residing by himself. The patient's ex periodically checks in on him to assist him with ADLs, apparently the patient has fired his home health aids and any home health assistance, his PCP office has coordinated contact with D[facility] to assist with caregivers however the patient declined any assistance from [facility] as well. Per PCP documentation following review of case management's home evaluation detailing space heaters left unattended, patient's inability to open containers of food independently, leaving the stove unattended , etc, in addition to the patient's history of falls and unsteady gait living independently would be unsafe. In light of this Dr. Daly has recommended either SNF placement or 24 hours home care. Patient seen and examined in room, no family at bedside. Patient is awake, oriented to person, not oriented to place, oriented to the month but unable to provide today's date. The patient keeps his eyes closed through the majority of the examination and in conversation. The patient is is forgetful and confused, making statements such as "they are trying to kill me", when asked who he is referring to he states, "my is trying to kill me", "they won't give me water", and then states "you must be with those people who are trying to kill me". He proceeds to make statements such as "they just want my money" and "they are waiting for me to ". Patient does not follow simple one-step commands, becomes agitated and guarded with simple tactile stimulation such as placement of a stethoscope for auscultation. Patient's laboratory data has somewhat improved with IV hydration since admission, speech therapy consulted, pending input and evaluation however patient was already placed on thickened liquids at the time of my exam today. Palliative Care was consulted to assist with goals of care, symptom management , and to discuss with the family the benefits and burdens of his current illnesses and the options regarding future care. . Function/Cognitive Trajectory Per patient's the patient has experienced a decline in the ability to make sound decisions over the past 2 years. She states that the patient frequently makes impulsive decisions that threaten his safety. The patient has experienced a significant cognitive and functional decline over the past few months. The patient has suffered multiple falls, is no longer able to drive, frequently forgets simple tasks such as turning off the oven or able to prepare food for himself. . Review of Systems ROS Limitations: Clinical Condition, Uncooperative (ROS obtained from EMR and report from patient's ex ), Poor Historian Constitutional: COMPLAINS OF: Weight loss, Generalized weakness Respiratory: DENIES: Shortness of breath Cardiovascular: DENIES: Chest pain, Lower Extremity Edema Gastrointestinal: COMPLAINS OF: Difficulty Swallowing (Patient has history of radiation treatment to skin cancer on his neck contributing to difficulty swallowing. ), DENIES: Abdominal pain Musculoskeletal: COMPLAINS OF: Stiffness, Back pain, Neck pain, Decreased range of motion Integumentary: COMPLAINS OF: Excessive dryness Neurologic: COMPLAINS OF: Abnormal gait, Tremor, Poor Balance Psychiatric: COMPLAINS OF: Confusion, Mood changes, Agitation Past Family Social History Coded Allergies: No Known Allergies (Unverified Allergy, Unknown, 10/16/17) Past Medical History Basal and squamous cell skin CA Radiation to neck 2001 because one of his skin cancers went to a lymph node Blepharospasms Kyphosis Scoliosis Torticollis . Past Surgical History Skin cancers removed - basal and squamous Inguinal hernia repair x 2 . Reported Medications Reported Meds & Active Scripts Active Reported Divalproex ER (Divalproex Sodium) 250 Mg Mindi 125 Mg PO BID . Current Medications Medications (Trade) Dose Ordered Sig/Randa Route Start Time Stop Time Status Last Admin (NS Flush) 2 ml UNSCH PRN IVF 10/16/17 12:45 10/16/17 13:01 Sodium Chloride 1,000 ml @ 100 mls/hr Q10H IV 10/16/17 18:16 10/18/17 09:03 (NS Flush) 2 ml UNSCH PRN IV FLUSH 10/16/17 18:30 (NS Flush) 2 ml BID IV FLUSH 10/16/17 21:00 (Tylenol) 650 mg Q4H PRN PO 10/16/17 18:30 (Zofran Inj) 4 mg Q6H PRN IVP 10/16/17 18:30 (Heparin Inj) 5,000 units Q12H SQ 10/16/17 18:30 10/18/17 05:51 (Narcan Inj) 0.4 mg UNSCH PRN IV PUSH 10/16/17 18:30 (Anabella-Colace) 1 tab BID PO 10/16/17 21:00 10/17/17 22:06 (Milk Of Magnesia Liq) 30 ml Q12H PRN PO 10/16/17 18:30 (Senokot) 17.2 mg Q12H PRN PO 10/16/17 18:30 (Dulcolax Supp) 10 mg DAILY PRN RECTAL 10/16/17 18:30 (Lactulose Liq) 30 ml DAILY PRN PO 10/16/17 18:30 (Depakote Sprinkles) 125 mg BID PO 10/17/17 10:00 10/17/17 22:06 Family History Per EMR mother lived to be age 97. Patient unable to provide history. . Substance Use Tobacco: Remote history of smoking in his 20s, has not smoked since. Alcohol: None reported. Prescription med abuse: None reported. Illicits: None reported. . Psychosocial History Patient was born and raised in [place], patient was to his Pat for 32 years, they just recently on 10/01/17, per patient's the patient had become more demanding and unreasonable over the past year, she stated she filed for divorce in April due to his unreasonable behavior. Unfortunately the patient was just recently diagnosed with Alzheimer's dementia in July of this year in midst of the divorce process. 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 . Spiritual/Cultural Factors Sabianist. . Living Will: Never completed Health Care Surrogate: Never completed Durable Power of Growth Hacker: Never completed Ethical and Legal Issues Per the patient's PCP documentation the patient has expressed mistrust for his ex , he has an estranged son from a previous relationship and has previously verbalized that he does not want his son involved in any decision making or inheritance, the patient has also declined to file any POA/living will paperwork in the office. Patient has no available advanced directives completed. . Physical Exam Vital Signs Date Time Temp Pulse Resp B/P (MAP) Pulse Ox O2 Delivery O2 Flow Rate FiO2 10/18/17 07:32 96.5 77 20 141/72 (95) 92 10/18/17 05:07 96.6 86 20 140/70 (93) 93 10/18/17 00:50 98.2 76 20 122/80 (94) 95 10/17/17 21:03 98.5 90 20 122/59 (80) 91 10/17/17 16:18 97.5 93 18 121/61 (81) 83 10/17/17 11:41 97.7 90 19 132/77 (95) 93 . Exam CONSTITUTIONAL/GENERAL: This is an elderly cachetic male patient resting in bed. TUBES/LINES/DRAINS: PIV x 2 SKIN: Ecchymoses on upper extremities. Multiple lesions on chest and anterior shoulders that appear to be actinic keratosis. Skin temperature appropriate. Not diaphoretic. HEAD: Atraumatic. Normocephalic. EYES: Pupils equal and round and reactive. Extraocular motions intact. No scleral icterus. No injection or drainage. Fundi not examined. ENT: Hearing grossly normal. Nose without bleeding or purulent drainage. Oral mucosa dry. NECK: Trachea midline. Supple, nontender. No palpable thyroid enlargement or nodularity. CARDIOVASCULAR: Regular rate and rhythm without murmurs, gallops, or rubs. No JVD. Peripheral pulses symmetric. RESPIRATORY/CHEST: Symmetric, unlabored respirations. Diminished breath sounds bilaterally. No wheezes, rales, or rhonchi. GASTROINTESTINAL: Abdomen soft, non-tender, nondistended. Bowel sounds present. GENITOURINARY: Without palpable bladder distension. MUSCULOSKELETAL: Extremities without clubbing, cyanosis, or edema. No mottling or clubbing. LYMPHATICS: No palpable cervical or supraclavicular adenopathy. NEUROLOGICAL: Awake, oriented to person. Disoriented, able to recall month but not day. Refuses to follow simple one step commands. Uncooperative with exam. PSYCHIATRIC: Unable to assess secondary to limited participation in exam. Patient does make multiple paranoid statements such as "they are trying to kill me". . Diagnostic Tests Laboratory Laboratory Tests Test 10/16/17 12:50 10/16/17 15:08 10/17/17 06:34 10/18/17 06:25 White Blood Count 5.1 TH/MM3 (4.0-11.0) 3.2 TH/MM3 (4.0-11.0) 2.4 TH/MM3 (4.0-11.0) Red Blood Count 4.25 MIL/MM3 (4.50-5.90) 3.92 MIL/MM3 (4.50-5.90) 4.35 MIL/MM3 (4.50-5.90) Hemoglobin 14.0 GM/DL (13.0-17.0) 12.9 GM/DL (13.0-17.0) 14.0 GM/DL (13.0-17.0) Hematocrit 40.9 % (39.0-51.0) 38.1 % (39.0-51.0) 42.1 % (39.0-51.0) Mean Corpuscular Volume 96.2 FL (80.0-100.0) 97.2 FL (80.0-100.0) 96.7 FL (80.0-100.0) Mean Corpuscular Hemoglobin 32.9 PG (27.0-34.0) 32.8 PG (27.0-34.0) 32.2 PG (27.0-34.0) Mean Corpuscular Hemoglobin Concent 34.1 % (32.0-36.0) 33.8 % (32.0-36.0) 33.3 % (32.0-36.0) Red Cell Distribution Width 14.9 % (11.6-17.2) 15.3 % (11.6-17.2) 15.1 % (11.6-17.2) Platelet Count 150 TH/MM3 (150-450) 126 TH/MM3 (150-450) 118 TH/MM3 (150-450) Mean Platelet Volume 8.5 FL (7.0-11.0) 9.0 FL (7.0-11.0) 8.7 FL (7.0-11.0) Neutrophils (%) (Auto) 71.8 % (16.0-70.0) 64.6 % (16.0-70.0) Lymphocytes (%) (Auto) 23.5 % (9.0-44.0) 30.0 % (9.0-44.0) Monocytes (%) (Auto) 4.3 % (0.0-8.0) 3.5 % (0.0-8.0) Eosinophils (%) (Auto) 0.2 % (0.0-4.0) 0.9 % (0.0-4.0) Basophils (%) (Auto) 0.2 % (0.0-2.0) 1.0 % (0.0-2.0) Neutrophils # (Auto) 3.7 TH/MM3 (1.8-7.7) 2.1 TH/MM3 (1.8-7.7) Lymphocytes # (Auto) 1.2 TH/MM3 (1.0-4.8) 1.0 TH/MM3 (1.0-4.8) Monocytes # (Auto) 0.2 TH/MM3 (0-0.9) 0.1 TH/MM3 (0-0.9) Eosinophils # (Auto) 0.0 TH/MM3 (0-0.4) 0.0 TH/MM3 (0-0.4) Basophils # (Auto) 0.0 TH/MM3 (0-0.2) 0.0 TH/MM3 (0-0.2) CBC Comment DIFF FINAL DIFF FINAL Differential Comment Prothrombin Time 11.2 SEC (9.8-11.6) Prothromb Time International Ratio 1.1 RATIO Activated Partial Thromboplast Time 25.6 SEC (24.3-30.1) Blood Urea Nitrogen 28 MG/DL (7-18) 22 MG/DL (7-18) Creatinine 0.96 MG/DL (0.60-1.30) 0.56 MG/DL (0.60-1.30) Random Glucose 80 MG/DL (74-106) 64 MG/DL (74-106) Total Protein 6.7 GM/DL (6.4-8.2) 5.5 GM/DL (6.4-8.2) Albumin 3.4 GM/DL (3.4-5.0) 2.8 GM/DL (3.4-5.0) Calcium Level 8.5 MG/DL (8.5-10.1) 8.1 MG/DL (8.5-10.1) Magnesium Level 2.3 MG/DL (1.5-2.5) Alkaline Phosphatase 124 U/L (45-117) 104 U/L (45-117) Aspartate Amino Transf (AST/SGOT) 52 U/L (15-37) 46 U/L (15-37) Alanine Aminotransferase (ALT/SGPT) 54 U/L (12-78) 42 U/L (12-78) Total Bilirubin 1.3 MG/DL (0.2-1.0) 0.6 MG/DL (0.2-1.0) Sodium Level 142 MEQ/L (136-145) 144 MEQ/L (136-145) Potassium Level 4.1 MEQ/L (3.5-5.1) 3.5 MEQ/L (3.5-5.1) Chloride Level 107 MEQ/L (98-107) 110 MEQ/L (98-107) Carbon Dioxide Level 31.1 MEQ/L (21.0-32.0) 29.2 MEQ/L (21.0-32.0) Anion Gap 4 MEQ/L (5-15) 5 MEQ/L (5-15) Estimat Glomerular Filtration Rate 74 ML/MIN (>89) 138 ML/MIN (>89) Total Creatine Kinase 837 U/L (39-308) 440 U/L (39-308) Creatine Kinase MB 23.0 NG/ML (0.5-3.6) 15.1 NG/ML (0.5-3.6) Creatine Kinase MB % 2.7 % (0.0-4.0) 3.4 % (0.0-4.0) Troponin I 0.04 NG/ML (0.02-0.05) Thyroid Stimulating Hormone 3rd Gen 1.700 uIU/ML (0.358-3.740) Urine Color YELLOW (YELLW/STRAW) Urine Turbidity CLEAR (CLEAR) Urine pH 5.5 (5.0-8.5) Urine Specific [place] 1.018 (1.002-1.035) Urine Protein TRACE mg/dL (NEG-TRACE) Urine Glucose (UA) NEG mg/dL (NEG) Urine Ketones TRACE mg/dL (NEG) Urine Occult Blood NEG (NEG) Urine Nitrite NEG (NEG) Urine Bilirubin NEG (NEG) Urine Urobilinogen LESS THAN 2.0 MG/DL (LESS Urine Leukocyte Esterase NEG (NEG) Urine RBC 1 /hpf (0-3) Urine WBC 1 /hpf (0-5) Urine Squamous Epithelial Cells <1 /hpf (0-5) Urine Mucus FEW /lpf (OCC) Microscopic Urinalysis Comment CULT NOT INDICATED Result Diagram: 10/18/17 0625 10/17/17 0634 Imaging Last [address] 10/16/17 3494 Signed Impressions: Service Date/Time: Monday, October 16, 2017 14:44 - CONCLUSION: 1. No change since prior exam. 2. Aging brain with atrophy. 3. No evidence of acute infarct , hemorrhage, mass or edema. Harvey Stark MD Chest X-Ray 10/16/17 1234 Signed Impressions: Service Date/Time: Monday, October 16, 2017 13:01 - CONCLUSION: 1. Trace stable left pleural effusion. 2. Patchy left lower lung zone airspace consolidation slightly progressed from prior exam. Anthony Cooper MD Cervical Spine CT 10/16/17 1234 Signed Impressions: Service Date/Time: Monday, October 16, 2017 14:44 - CONCLUSION: 1. No acute fracture or subluxation. 2. Redemonstration of multilevel degenerative spondylosis most prominently at C3-6. Anthony Cooper MD Patient/Family Conference Present at Family Conference: Patient's ex Pat. . Family Conference Location: Telephone Issues Discussed: * Palliative care role, purpose, approach * Additional medical, psychosocial, and spiritual history * Patients general health, functional status, and cognitive changes in the months leading up to the current hospitalization * Family understanding of the current medical problems * Questions answered to the best of my ability * Palliative care contact information provided . Assessment and Plan Disease Oriented Problem List: (1) Alzheimer's dementia with behavioral disturbance (2) Generalized weakness Symptom Scale: (1) Debility (2) Confusion Pertinent Non-Medical Issues Psychosocial:Patient was born and raised in [place], patient was to his Pat for 32 years, they just recently on 10/01/17, per patient's the patient had become more demanding and unreasonable over the past year, she stated she filed for divorce in April due to his unreasonable behavior. Unfortunately the patient was just recently diagnosed with Alzheimer's dementia in July of this year in midst of the divorce process. 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 Spiritual: Sabianist. Legal: Per the patient's PCP documentation the patient has expressed mistrust for his ex , he has an estranged son from a previous relationship and has previously verbalized that he does not want his son involved in any decision making or inheritance, the patient has also declined to file any POA/living will paperwork in the office. Patient has no available advanced directives completed. Ethical issues impacting care: None known. Important Contacts Brandie Ac (): [phone], . Prognosis Patient is an 87 year old male with a past medical history significant for Alzheimer's dementia with behavioral disturbances, as well as kyphosis, scoliosis, blepharospasm, squamous cell carcinoma of the skin. Patient was just recently diagnosed with Alzheimer's dementia in July 2017, per the patient' s he has experienced a cognitive decline over the past two years and a marked cognitive/functional decline following his hospitalization in July. The patient is no longer able to complete ADLs independently. Due to his advanced age and Alzheimer's dementia patient is at high risk for complications/ setbacks. . Code Status: Full Code Plan * Legal decision maker: Patient appears to lack the capacity to make informed health care decisions independently at this time. It is unclear if he will regain the capacity to make health care decisions independently. Per [place] law the patient's capacity needs to be determined by a physician. Patient has not previously completed any written advanced directives. The patient was just recently from his of 32 years on 10/01/17. Per [place] statutes in the absence of written advanced directives health care decision making would fall to the patient's next of kin. The patient's next of kin in his son Yanick Cardenas who is reportedly incarcerated in [place]. Palliative care is attempting to locate the patient's son to determine if he is able to participate in health care decision making and if he is willing to serve as the health care proxy for his father. If the patient's son is unable to participate the patient's next of kin would be an estranged sister, who according to the patient's ex may be unable to participate due to health issues of her own. Patient's ex is willing to serve as health care proxy in the event the patient's son is unable or unwilling to serve. * CODE STATUS: FULL CODE. (By default as legal decision maker needs to be determined) * GOALS: Pending determining legal decision maker/health care proxy. * SYMPTOM MANAGEMENT: * ==Confusion: Secondary to Alzheimer's dementia, unfamiliar environment, etc. Risperidone ordered per psych's recommendations to begin this evening, however patient has been refusing his medications. Recommend frequent reorientation and close monitoring at this time. Further recommendations pending determination of capacity and determination of legal decision maker/health care proxy to clarify goals. * ==Debility: Multifactorial, contributing factors include advanced age, worsening dementia, unsteady gait, poor balance, malnutrition. PT ordered however patient refuses to participate. * Palliative care continue to follow this patient throughout her hospitalization to establish trust, assist with symptom management and clarification of medical treatment goals. . Thank you for the opportunity to participate in the care of Mr. Ac. Attestation To help prompt me to consider important information that might be impacting today's encounter and assessment, information from prior notes written by myself or my colleagues may have been "brought forward" into today's note. My signature on this note, however, is an attestation that I personally performed the exam, history, and/or decision-making noted today, and, unless otherwise indicated, the interactions with patient, family, and staff as well as the review of records all occurred today. I also attest that the listed assessment and stated plan reflect my best clinical judgment today based on the combination of historical information, prior notes, and today's exam/ interactions. When time spent is documented, it refers only to time spent today by the signer, or if indicated, combined time spent today by collaborating physician/nurse practitioner. Samantha Devi Oct 18, 2017 11:28
--- NOTE | 2017-10-18 14:01 | HHI.FPPN ---
Subjective Remarks Patient seen and examined this morning by medical team. No acute events overnight per nursing staff. This morning, however patients mental status has changed. Patient seems to have signs of delirium. Due to choking with drinking water overnight, patient's diet restricted to thicken liquids until speech evaluation can be completed. This upset the patient and he is currently screaming "they are trying to kill me" and "give me some water." Medical team attempted to discuss importance of speech evaluation before we could let him drink, however patient is unable to understand currently. Per nursing report, patient has started to lash out to the staff and is currently refusing all medications as well as pull out his IV. He cannot complete a review of systems due to his mental state, but does not endorse any other complaints other than not being able to drink water. (Adria Leyva MD R2) Objective Vitals Vital Signs Date Time Temp Pulse Resp B/P (MAP) Pulse Ox O2 Delivery O2 Flow Rate FiO2 10/18/17 07:32 96.5 77 20 141/72 (95) 92 10/18/17 05:07 96.6 86 20 140/70 (93) 93 10/18/17 00:50 98.2 76 20 122/80 (94) 95 10/17/17 21:03 98.5 90 20 122/59 (80) 91 10/17/17 16:18 97.5 93 18 121/61 (81) 83 I/O 10/17/17 10/17/17 10/17/17 10/18/17 10/18/17 10/18/17 07:00 15:00 23:00 07:00 15:00 23:00 # Voids 4 (Adria Leyva MD R2) Result Diagram: 10/18/17 0625 10/17/17 0634 Objective Remarks GENERAL: Elderly gentleman lying in bed in no acute distress yelling out that he wants water and that the staff is "trying to kill him." SKIN: Warm and dry. No rash. HEENT: EOMI. Marked kyphosis with neck flexion when standing or sitting. Mucous membranes dry. No rhinorrhea. No LAD or JVD visually appreciated. CARDIOVASCULAR: Regular rate and rhythm without obvious murmurs, gallops, or rubs. RESPIRATORY: Clear to auscultation bilaterally with no CRW. No increased work of breathing. GASTROINTESTINAL: Abdomen soft, non-tender, nondistended with positive bowel sounds. No masses appreciated. MUSCULOSKELETAL: No cyanosis or edema. Strength grossly WNL. Patient with difficulty ambulating due to proximal muscle weakness of the lower extremities. Gait is unsteady and wide based. BACK: Nontender without obvious deformity. No CVA tenderness. NEURO/PSYCH: Patient currently screaming out throughout interview. Unable to complete review of systems. Patient not active and interview. Patient oriented to place and person. No acute hallucinations appreciated. (Adria Leyva MD R2) A/P Assessment and Plan 87-year-old male with history of Alzheimer's dementia with behavioral disturbances presents with weakness after falling and inability to care for himself. (Adria Leyva MD R2) Attending Attestation Patient seen and examined. Case reviewed and discussed with the resident team. Agree with plan of care as discussed with me and documented in the resident note. (Saul Hi MD) Problem List: (1) Alzheimer's dementia with behavioral disturbance ICD Codes: G30.8 - Other Alzheimer's disease; F02.81 - Dementia in other diseases classified elsewhere with behavioral disturbance Status: Chronic Plan: Previously evaluated by psychiatry, Dr. Urena Psychiatry consulted, recommended starting Risperdal 0.5 mg twice a day, Namenda , and Aricept. Case management and palliative care consulted to help with placement -Current difficulty finding patient's POA as his son is currently incarcerated in [place]. His next of kin would be an estranged sister with no known contact information. PCP, Dr. 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 He has been set up with [facility] and they offered to provide him with caregivers also and he has declined. He and have been given extensive info on [facility] but patient refuses to go anywhere but home... I believe that patient is not safe to live alone at home--on his eval by case management at home he had several space heaters unattended (his heat had broken), he couldn't open containers for food without help, left the stove unattended during evaluation, etc. He has had numerous falls, is unsteady on his feet and frequently doesn't use his assistive devices. He feels that he can drive ( despite not being able to hold his head up to see out the window). Would recommend at least [facility] placement or 24 hour care at home. (2) Generalized weakness ICD Codes: R53.1 - Weakness Status: Acute Plan: Physical therapy consult (3) Elevated CK ICD Codes: R74.8 - Abnormal levels of other serum enzymes Status: Acute Plan: Mildly elevated CK Creatinine within normal limits IV fluids at maintenance rate for now, continue IV fluids as patient currently has not passed his swallow evaluation (4) FEN/PPX Status: Acute Plan: Fluids: NS at 100 ml/hr Electrolyte: monitor and replace prn Nutrition: Nothing by mouth, swallow evaluation pending PPX: heparin, scds (Adria Leyva MD R2) Problem Qualifiers (1) Alzheimer's dementia with behavioral disturbance: Qualified Codes: G30.9 - Alzheimer's disease, unspecified; F02.81 - Dementia in other diseases classified elsewhere with behavioral disturbance Adria Leyva MD R2 Oct 18, 2017 14:01 Saul Hi MD Oct 19, 2017 10:14
[2017-10-18 15:30] VITALS: BP 144/65; PULSE 86; RESP 24; TEMP 96.6; O2SAT 90
--- NOTE | 2017-10-18 16:30 | HHI.HCSW ---
Client Service And Consulting Manager Visit Significant Family/Friend Mr. Ac has a son, Yanick Cardenas. Reportedly in his 40s. Per ex- son is incarcerated somewhere in [facility], does not know the facility where he is at. Ex- reports he was arrested a year or so ago and has 2-3 more years to serve. Google search and social media searches attempted in case he is not incarcerated anymore, provided possible phone number: [phone]-- no answer, rings busy/disconnected Unable to find any matches or information on incarceration or facility. Mr. Ac has an estranged sister, Louise Enriquez in [facility]. She is a year or so younger (in her 80s) Does not have a phone number for her because "she changes it every time he tries to call her". Google search and social media searches attempted; possible number: [phone] -- no answer, rings busy/disconnected Accurints will probably be needed as patient is now and per [place] Statutes health care proxy decision maker would fall to the son. If he is not readily available or unwilling to serve then health care decision making would fall to sister, if she is unwilling to serve then it would fall to patient's ex- as there are no other family members. . Advance Directive Attempted to identify legal health care proxy decision maker. Spoke with psychiatry regarding capacity. Reports they will need to see Mr. Ac again to address capacity. Requested assessment of Mr. Ac's ability to appoint health care surrogate, make his own medical decisions/shared decision making, and overall capacity. Presents with change in cognition. Awaiting visit. . Follow Up Visit Palliative care will continue to follow throughout hospitalization. Will address goals of care, code status, etc when legal proxy decision maker is identified. Anila Allison, [facility] PHYSICIAN Oct 18, 2017 16:30
--- NOTE | 2017-10-18 16:44 | EKG ---
Date Performed: 10/16/2017 Time Performed: 12:52:49 PTAGE: 87 years EKG: ATRIAL FIBRILLATION MARKED LEFT AXIS DEVIATION POSSIBLE RIGHT VENTRICULAR CONDUCTION DELAY SEPTAL MYOCARDIAL INFARCTION MODERATE T-WAVE ABNORMALITY, CONSIDER LATERAL ISCHEMIA ABNORMAL ECG PREVIOUS TRACING : 07/24/2017 21.06 Since the prior tracing, the patient has developed atrial f ibrillation with a controlled ventricular response. Tracing shows possible prior anteroseptal infarct . There is a worsening in anterior T-wave changes. Clinical correlation to exclude myocardial ischemi a injury will be important. DOCTOR: Oumou Bo Interpretating Date/Time 10/18/2017 16:42:35
[2017-10-18] MEDS ORDERED: risperiDONE 0.25 MG TAB PO SCH (21:00)
[2017-10-18 21:31] VITALS: BP 129/80; PULSE 88; RESP 20; TEMP 97.4; O2SAT 93
[2017-10-18] MEDS: risperiDONE 0.5 MG TAB PO SCH (23:09)
[2017-10-19] VITALS (13 sets, daily range): BP systolic 118–201; BP diastolic 64–93; PULSE 87–147; RESP 18–24; TEMP 96.2–101.1; O2SAT 91–97
[2017-10-19] MEDS ORDERED: HALOPERIDOL LACTATE 5 MG/ML AMP IM ONE (03:00)
[2017-10-19] MEDS: SODIUM CHLOR 0.9% 1000 ML INJ 1,000 ML IV SCH ×2 (05:34→16:02)
[2017-10-19] MEDS: HEPARIN SODIUM - SQ 10,000 UNITS/ML VIAL SQ SCH (05:45)
[2017-10-19] MEDS ORDERED: ENALAPRILAT 1.25 MG/ML VIAL IV PUSH PRN (06:00)
[2017-10-19] MEDS: risperiDONE 0.5 MG TAB PO SCH (09:00)
[2017-10-19] MEDS: MEMANTINE HCL 5 MG TAB PO SCH (09:00)
[2017-10-19] MEDS: SODIUM CHLORIDE 0.9% FLUSH 10 ML FLUSH IV FLUSH SCH (09:00)
[2017-10-19] MEDS: DONEPEZIL HCL 5 MG TAB PO SCH (09:00)
[2017-10-19] MEDS: DOCUSATE SODIUM 50 MG/SENNA 8.6 MG TAB PO SCH (09:00)
[2017-10-19] MEDS: DIVALPROEX SODIUM SPRINKLES 125 MG CAP PO SCH (09:00)
[2017-10-19 10:46] LABS: AUTOMATED NEUTROPHIL # 2.7 TH/MM3 (1.8-7.7); BASOPHIL % 0.2 % (0.0-2.0); HEMATOCRIT 40.9 % (39.0-51.0); HEMO FLAGS DIFF FINAL; LYMPH % 22.4 % (9.0-44.0); LYMPHOCYTE # 0.8 TH/MM3 (1.0-4.8); MEAN CELL VOLUME 95.4 FL (80.0-100.0); MEAN CORPUSCULAR HEMOGLOBIN 32.2 PG (27.0-34.0); MEAN CORPUSCULAR HGB CONC 33.7 % (32.0-36.0); MONO % 3.3 % (0.0-8.0); NEUT % 74.1 % (16.0-70.0); PLATELET COUNT 110 TH/MM3 (150-450); RED BLOOD COUNT 4.29 MIL/MM3 (4.50-5.90); RED CELL DISTRIBUTION WIDTH 15.3 % (11.6-17.2); WHITE BLOOD COUNT 3.7 TH/MM3 (4.0-11.0)
[2017-10-19 11:13] LABS: BICARBONATE 26.9 MEQ/L (21.0-32.0); POTASSIUM 3.7 MEQ/L (3.5-5.1)
--- NOTE | 2017-10-19 13:06 | HHI.PYPN ---
Subjective Remarks The patient was revisited today for psychiatric reevaluation and also for assessment of decision-making capacity to refuse medical treatment and placement. Patient was found agitated, poorly cooperative with the evaluation, very confused. He was accompanied by his , Brandie Ac. Patient reports feeling okay, but he doesn't know the reason of his hospitalization, he is unable to enlist his medical conditions, unable to verbalize understanding and appreciation of his recent medical situation. Patient knows that he is in the hospital, but he doesn't know exactly in what city, and he is disoriented in time. I asked the patient multiple times if he has a choice regarding placement , but the patient did not answer. I also asked the patient who would be the person making decisions for him he cannot make decisions and at the beginning he says he says , but minutes later he retracts and doesn't answer. As per nurse in charge, patient has been episodically disorganized, with visible son banning, fluctuation of consciousness and agitation. Review of Systems Except as stated in HPI: all other systems reviewed are Neg Mental Status Examination Appearance: Disheveled Consciousness: Somnolent, Clouded Orientation: Person, Place (partially) Motor Activity: Normal gait Speech: Hesitant, Slow Language: Adequate Fund of Knowledge: Inadequate Attention and Concentration: Inadequate Memory: Impaired Mood: Irritable Affect: Irritable Thought Process & Associations: Loose associations Thought Content: Appropriate, Thought blocking Hallucination Type: None Delusion Type: None Suicidal Ideation: No Suicidal Plan: No Suicidal Intention: No Homicidal Ideation: No Homicidal Plan: No Homicidal Intention: No Insight: Fair Judgment: Impulsive Results Labs Test 10/19/17 10:28 White Blood Count 3.7 TH/MM3 Red Blood Count 4.29 MIL/MM3 Hemoglobin 13.8 GM/DL Hematocrit 40.9 % Mean Corpuscular Volume 95.4 FL Mean Corpuscular Hemoglobin 32.2 PG Mean Corpuscular Hemoglobin Concent 33.7 % Red Cell Distribution Width 15.3 % Platelet Count 110 TH/MM3 Mean Platelet Volume 8.8 FL Neutrophils (%) (Auto) 74.1 % Lymphocytes (%) (Auto) 22.4 % Monocytes (%) (Auto) 3.3 % Eosinophils (%) (Auto) 0.0 % Basophils (%) (Auto) 0.2 % Neutrophils # (Auto) 2.7 TH/MM3 Lymphocytes # (Auto) 0.8 TH/MM3 Monocytes # (Auto) 0.1 TH/MM3 Eosinophils # (Auto) 0.0 TH/MM3 Basophils # (Auto) 0.0 TH/MM3 CBC Comment DIFF FINAL Differential Comment Blood Urea Nitrogen 17 MG/DL Creatinine 0.56 MG/DL Random Glucose 89 MG/DL Calcium Level 8.2 MG/DL Sodium Level 150 MEQ/L Potassium Level 3.7 MEQ/L Chloride Level 114 MEQ/L Carbon Dioxide Level 26.9 MEQ/L Anion Gap 9 MEQ/L Estimat Glomerular Filtration Rate 138 ML/MIN Phosphorus Level 2.2 MG/DL Magnesium Level 2.0 MG/DL Ammonia 31 MCMOL/L Vitamin B12 Level 1198 PG/ML Vitals/IOs Vital Signs Date Time Temp Pulse Resp B/P (MAP) Pulse Ox O2 Delivery O2 Flow Rate FiO2 10/19/17 11:51 96.2 87 24 136/74 (94) 96 10/18/17 20:00 Nasal Cannula 4.00 Assessment & Plan Problem List: (1) Dementia in other diseases classified elsewhere with behavioral disturbance ICD Codes: F02.81 - Dementia in other diseases classified elsewhere with behavioral disturbance Assessment & Plan: At the moment of this evaluation the patient is unable to express and active choice regarding his medical treatment or discharge planning. The patient is confused, partially oriented in time and place, unable to fully participate in a conversation, unable to express a clear understanding and appreciation of his acute medical conditions, reason of this hospitalization, and unable to participate in a discussion regarding discharge planning due to the level of distorted mentation and disorientation. This reason, the patient does not have decision-making capacity to participate in a discussion for discharge planning at this moment. Healthcare by proxy or surrogated decision maker, but mostly identified in order to help with these decisions. Assessment & Plan Estimated LOS: days Justification for Cont. Inpt. Patient does not meet criteria for involuntary psychiatric admission at this moment. Misbah Stoll MD Oct 19, 2017 13:06
--- NOTE | 2017-10-19 15:07 | HHI.HCPN ---
Reviewed psychiatry notes, Mr. Ac is not capacitated to make his own medical decisions or appoint a health care surrogate to make medical decisions on his behalf. As previously noted, Mr. Ac is recently , has 1 son incarcerated. We have no information on which facilitate he is in, only know he may be in the [facility] area. Mr. Ac has 1 estranged sister, no other family members. Google and social media searches have been attempted (see previous palliative care social work note). Palliative care RESISTOR TESTER informed, accurints requested in an attempt to locate sister. Patient's son: Yanick Cardenas, age 40s, last name to be incarcerated in [facility], reportedly has 2-3 years left to serve [facility] [place] [facility]. Patient's sister: Ailyn Enriquez, a year younger than patient, last known in [facility] Spoke with legal, recommends we move forward with attempting to locate patient' s sister via accurints. Given we have exhausted social media and google searches to find son and sister, states in the mean time ex- Pat is able to serve as proxy decision maker as patient may have medical decisions that need to be made. Per [place] Statutes, medical proxy decision making would fall to the son however he is not readily available and we have no further information to locate him. Health care decision making would then fall to patient's sister, currently awaiting accurint results. If sister is unwilling or unable to participate then proxy would fall to patient's ex-. Spoke with ex- Brandie Ac to update her on above. She is willing to serve as health care proxy decision maker, understands legally we first have to try and speak with sister per [place] Statutes. She expressed concern regarding patient' s nutritional status, ability to take PO meds, and overall medical condition. Palliative care will continue to follow throughout hospitalization. Anila Allison, CHRIS Oct 19, 2017 15:07
--- NOTE | 2017-10-19 17:08 | HHI.FPPN ---
Subjective Remarks Patient was seen and evaluated this morning. He is confused, moaning and difficult to understand during encounter. Nursing staff concerned for altered mental status. Required Haldol overnight because patient continuously pulled on soft restraints and was not able to be redirected. Patient denies chest pain, heart palpitations, shortness of breath, nausea/vomiting, diarrhea and constipation. All questions were answered. (Chloé Stephenson MD R1) Objective Vitals Vital Signs Date Time Temp Pulse Resp B/P (MAP) Pulse Ox O2 Delivery O2 Flow Rate FiO2 10/19/17 16:10 97.5 112 18 133/65 (87) 93 10/19/17 11:51 96.2 87 24 136/74 (94) 96 10/19/17 09:20 175/71 (105) 10/19/17 07:48 96.5 94 24 183/81 (115) 91 10/19/17 06:16 91 131/64 (86) 10/19/17 05:41 99.4 106 24 179/70 (106) 93 10/19/17 00:43 98.0 91 20 133/83 (100) 93 10/18/17 21:31 97.4 88 20 129/80 (96) 93 10/18/17 20:00 91 Nasal Cannula 4.00 I/O 10/18/17 10/18/17 10/18/17 10/19/17 10/19/17 10/19/17 07:00 15:00 23:00 07:00 15:00 23:00 # Voids 4 3 (Chloé Stephenson MD R1) Result Diagram: 10/19/17 1028 10/19/17 1028 Imaging Last Impressions Head CT 10/16/17 1234 Signed Impressions: Service Date/Time: Monday, October 16, 2017 14:44 - CONCLUSION: 1. No change since prior exam. 2. Aging brain with atrophy. 3. No evidence of acute infarct , hemorrhage, mass or edema. Harvey Stark MD Chest X-Ray 10/16/17 1234 Signed Impressions: Service Date/Time: Monday, October 16, 2017 13:01 - CONCLUSION: 1. Trace stable left pleural effusion. 2. Patchy left lower lung zone airspace consolidation slightly progressed from prior exam. Anthony Cooper MD Cervical Spine CT 10/16/17 1234 Signed Impressions: Service Date/Time: Monday, October 16, 2017 14:44 - CONCLUSION: 1. No acute fracture or subluxation. 2. Redemonstration of multilevel degenerative spondylosis most prominently at C3-6. Anthony Cooper MD Objective Remarks GENERAL: Elderly gentleman lying in bed in no acute distress, sleeping, then moaning, difficult to understand. SKIN: Warm and dry. No rash. HEENT: Extraocular motion intact Marked kyphosis with neck flexion when standing or sitting. Mucous membranes dry. No rhinorrhea. No lymphadenopathy or JVD visually appreciated. CARDIOVASCULAR: Regular rate and rhythm without obvious murmurs, gallops, or rubs. RESPIRATORY: Clear to auscultation bilaterally. No increased work of breathing. GASTROINTESTINAL: Abdomen soft, non-tender, nondistended with positive bowel sounds. No masses appreciated. MUSCULOSKELETAL: No cyanosis or edema. Strength grossly within normal limits. Patient with difficulty ambulating due to proximal muscle weakness of the lower extremities. Gait is unsteady and wide based. Restraints placed on all 4 extremities. NEURO/PSYCH: Patient appears confused. Uncooperative. Medications and IVs Current Medications Medications (Trade) Dose Ordered Sig/Randa Route Start Time Stop Time Status Last Admin (NS Flush) 2 ml UNSCH PRN IVF 10/16/17 12:45 10/16/17 13:01 Sodium Chloride 1,000 ml @ 100 mls/hr Q10H IV 10/16/17 18:16 10/19/17 16:02 (NS Flush) 2 ml UNSCH PRN IV FLUSH 10/16/17 18:30 (NS Flush) 2 ml BID IV FLUSH 10/16/17 21:00 10/18/17 23:10 (Tylenol) 650 mg Q4H PRN PO 10/16/17 18:30 (Zofran Inj) 4 mg Q6H PRN IVP 10/16/17 18:30 (Heparin Inj) 5,000 units Q12H SQ 10/16/17 18:30 10/19/17 05:45 (Narcan Inj) 0.4 mg UNSCH PRN IV PUSH 10/16/17 18:30 (Anabella-Colace) 1 tab BID PO 10/16/17 21:00 10/17/17 22:06 (Milk Of Magnesia Liq) 30 ml Q12H PRN PO 10/16/17 18:30 (Senokot) 17.2 mg Q12H PRN PO 10/16/17 18:30 (Dulcolax Supp) 10 mg DAILY PRN RECTAL 10/16/17 18:30 (Lactulose Liq) 30 ml DAILY PRN PO 10/16/17 18:30 (Depakote Sprinkles) 125 mg BID PO 10/17/17 10:00 10/18/17 23:10 (Namenda) 5 mg DAILY PO 10/19/17 09:00 (Aricept) 5 mg DAILY PO 10/19/17 09:00 (risperDAL) 0.5 mg BID PO 10/18/17 21:00 10/18/17 23:09 (Vasotec Inj) 1.25 mg Q6H PRN IV PUSH 10/19/17 06:00 (Chloé Stephenson MD R1) Urinary Catheter: No (Chloé Stephenson MD R1) Vascular Central Line Catheter: No (Chloé Stephenson MD R1) A/P Assessment and Plan 87-year-old male with history of Alzheimer's dementia with behavioral disturbances presents with weakness after falling and inability to care for himself. Discharge Planning Discharge pending clinical improvement. Patient will require placement in assisted living facility. (Chloé Stephenson MD R1) Attending Attestation Patient seen and examined. Case reviewed and discussed with the resident team. Agree with plan of care as discussed with me and documented in the resident note. (Saul Hi MD) Problem List: (1) Altered mental state ICD Codes: R41.82 - Altered mental status, unspecified Status: Acute Plan: Per nursing, altered mental status overnight. Patient combative. Unable to be redirected. Differential diagnosis: * Alzheimer's dementia versus delirium versus sepsis Vitals/Labs: * Vitals within normal limits. * On admission, WBC 5.1, hemoglobin 14, hematocrit 40.9, platelet count 150. * On admission, CMP grossly normal. * On admission, UA negative. * CBC on 10/19: WBC 3.7, hemoglobin 13.8, hematocrit 40.9, platelet count 110. * BMP on 10/19: Sodium 150. * B12 1198. Imaging: * Head CT 10/16: No change since prior exam. Aging brain with atrophy. No evidence of acute infarct, hemorrhage, mass or edema. * Repeat head CT ordered stat on 10/19 - pending. Orders: * Bedside glucose ordered on 10/19 in a.m. - pending. * UA ordered on 10/19 in a.m. - pending. * Speech therapy consulted for swallow evaluation 10/22: Pure, pudding consistency thickened liquids. * Speech therapy consulted for swallow evaluation 10/19: Patient uncooperative. * Psychiatry re-consult 10/19: Patient does not have competency. Patient does not meet inpatient psych criteria. Medications: * NS 1,000 ml at 120 ml/hr. * Memantine 5 mg daily PO. * Aricept 5 mg daily PO. * Risperidone 0.5 BID PO. * Depakote 125mg BID PO. (2) Alzheimer's dementia with behavioral disturbance ICD Codes: G30.8 - Other Alzheimer's disease; F02.81 - Dementia in other diseases classified elsewhere with behavioral disturbance Status: Chronic Plan: Patient with history of Alzheimer's dementia. Previously evaluated by psychiatry, Dr. Urena. Patient agitated and combative overnight. Placed on soft restraints. Required Haldol. Patient confused this morning. Orders: * Psychiatry consulted; recommended starting Risperdal 0.25 - 0.5 mg BID, Namenda, and Aricept. * Case management and palliative care consulted to help with placement. * Difficulty finding patient's POA as his son is currently incarcerated in [place]. His next of kin would be an estranged sister with no known contact information. Per palliative care, ex becomes decision-maker. PCP, Dr. 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 He has been set up with [facility] and they offered to provide him with caregivers also and he has declined. He and have been given extensive info on [facility]/NH but patient refuses to go anywhere but home... I believe that patient is not safe to live alone at home--on his eval by case management at home he had several space heaters unattended (his heat had broken), he couldn't open containers for food without help, left the stove unattended during evaluation, etc. He has had numerous falls, is unsteady on his feet and frequently doesn't use his assistive devices. He feels that he can drive ( despite not being able to hold his head up to see out the window). Would recommend at least SENIOR CARE placement or 24 hour care at home." (3) Generalized weakness ICD Codes: R53.1 - Weakness Status: Acute Plan: Physical deconditioning. Orders: * Physical therapy consult. (4) Hypernatremia ICD Codes: E87.0 - Hyperosmolality and hypernatremia Status: Resolved Plan: Patient with new onset hypernatremia. * See Plan for Altered mental status. (5) Elevated CK ICD Codes: R74.8 - Abnormal levels of other serum enzymes Status: Acute Plan: Mildly elevated CK. Creatinine within normal limits. * Monitor. (6) FEN/PPX Status: Acute Plan: Fluids: * NS 1,000 ml at 120 ml/hr. Electrolyte: * Monitor and replete as necessary. Nutrition: * Pure, pudding consistency thickened liquids. DVT prophylaxis: * Heparin 5,000 units q12hr. * SCDs. (Clhoé Stephenson MD R1) Problem Qualifiers (1) Alzheimer's dementia with behavioral disturbance: Qualified Codes: G30.9 - Alzheimer's disease, unspecified; F02.81 - Dementia in other diseases classified elsewhere with behavioral disturbance Chloé Stephenson MD R1 Oct 19, 2017 17:08 Saul Hi MD Oct 21, 2017 13:42
--- NOTE | 2017-10-19 18:18 | HHI.HCPN ---
Reason for visit a. To assist with evaluation and management of symptoms including: confusion and debility b. To assist medical decision maker(s) with: better understanding of current medical conditions; weighing benefits/burdens of medical treatment options; making medical treatment decisions. . Subjective/Interval History Patient is an 87 year old male with a past medical history significant for Alzheimer's dementia with behavioral disturbances, as well as kyphosis, scoliosis, blepharospasm, squamous cell carcinoma of the skin. The patient presented to [facility] ED on 10/16/17 via EMS for evaluation of generalized weakness. The patient's ex alerted EMS when she came to check on him around 11am and found him lying on the floor unable to get up. Apparently the patient had fell the sometime the day before and had been lying on the floor since. The patient could not recall the duration in which he had been lying on the floor, at the time of arrival to the ED he was oriented to person and to place, but not to time. Patient denied any pain at that time. Patient seen and examined in ER room H94. Patient lethargic and oriented to self with some confusion. Patient followed simple commands. Patient asking for Pepsi cola. Patient was able to tell me that he was to his ex- Ana Luisa for 32 years and that she recently him. Patient currently calm. He has soft restraints to all 4 extremities. Denies pain. Patient endorsing feeling tired. Speech therapy saw patient earlier on during the day while he was confused and combative and he was made NPO. During this visit , bedside RN Fallon Eubanks stated that patient`s diet has been upgraded to pureed diet and thickened fluids.Patient will be able to take his medications. Patient followed by physical therapy (PT) who noted that patient has difficulty with ambulation and poor gait-recommended PT at rehabilitation and home with home health care. Patient is afebrile. Vital signs at 1610hrs= HR 112, BP 133/65 and O2 saturation 93% on 2LNC. Laboratory workup today revealing WBC 3.7, hemoglobin 13.8, hematocrit 40.9, Plt count 110, sodium 150, potassium 3.7, BUN/creatinine 17/0.56. No recent imaging. Telephone conversation to patient`s ex- Aan Luisa, updated on patient`s medical status. Ex- concerned that patient has not had food for the last 2 days. She said patient generally eats slow and coughs while eating secondary to radiation to the neck he had in the past. Notified her that patient`s is now going to have pureed diet. Family/friend interactions Telephone conversation with patient`s ex-. . Advance Directives Living Will: Never completed Health Care Surrogate: Never completed Durable Power of Ruby Developer: Never completed Objective Vital Signs Date Time Temp Pulse Resp B/P (MAP) Pulse Ox O2 Delivery O2 Flow Rate FiO2 10/19/17 16:10 97.5 112 18 133/65 (87) 93 10/19/17 11:51 96.2 87 24 136/74 (94) 96 10/19/17 09:20 175/71 (105) 10/19/17 07:48 96.5 94 24 183/81 (115) 91 10/19/17 06:16 91 131/64 (86) 10/19/17 05:41 99.4 106 24 179/70 (106) 93 10/19/17 00:43 98.0 91 20 133/83 (100) 93 10/18/17 21:31 97.4 88 20 129/80 (96) 93 10/18/17 20:00 91 Nasal Cannula 4.00 Intake & Output 10/19/17 10/19/17 07:00 19:00 # Voids 3 Physical Exam CONSTITUTIONAL/GENERAL: This is an elderly cachetic male patient resting in bed , in no apparent distress or discomfort, currently calm. TUBES/LINES/DRAINS: PIV x 2 SKIN: Ecchymoses on upper extremities. Multiple lesions on chest and anterior shoulders that appear to be actinic keratosis. Skin temperature appropriate. Not diaphoretic. HEAD: Atraumatic. Normocephalic. EYES: Pupils equal and round and reactive. Extraocular motions intact. No scleral icterus. No injection or drainage. Fundi not examined. ENT: Hearing grossly normal. Nose without bleeding or purulent drainage. Oral mucosa dry. NECK: Trachea midline. Supple, nontender. No palpable thyroid enlargement or nodularity. CARDIOVASCULAR: Regular rate and rhythm without murmurs, gallops, or rubs. No JVD. Peripheral pulses symmetric. RESPIRATORY/CHEST: Symmetric, unlabored respirations. Diminished breath sounds bilaterally. No wheezes, rales, or rhonchi. GASTROINTESTINAL: Abdomen soft, non-tender, nondistended. Bowel sounds present. GENITOURINARY: Without palpable bladder distension. MUSCULOSKELETAL: Extremities without clubbing, cyanosis, or edema. No mottling or clubbing. LYMPHATICS: No palpable cervical or supraclavicular adenopathy. NEUROLOGICAL: Awake, oriented to person. Confused to place and time. Slightly mumbled speech. Followed simple commands PSYCHIATRIC: Currently calm. . Diagnostic Tests Laboratory Laboratory Tests Test 10/17/17 06:34 10/18/17 06:25 10/19/17 10:28 White Blood Count 3.2 TH/MM3 (4.0-11.0) 2.4 TH/MM3 (4.0-11.0) 3.7 TH/MM3 (4.0-11.0) Red Blood Count 3.92 MIL/MM3 (4.50-5.90) 4.35 MIL/MM3 (4.50-5.90) 4.29 MIL/MM3 (4.50-5.90) Hemoglobin 12.9 GM/DL (13.0-17.0) 14.0 GM/DL (13.0-17.0) 13.8 GM/DL (13.0-17.0) Hematocrit 38.1 % (39.0-51.0) 42.1 % (39.0-51.0) 40.9 % (39.0-51.0) Mean Corpuscular Volume 97.2 FL (80.0-100.0) 96.7 FL (80.0-100.0) 95.4 FL (80.0-100.0) Mean Corpuscular Hemoglobin 32.8 PG (27.0-34.0) 32.2 PG (27.0-34.0) 32.2 PG (27.0-34.0) Mean Corpuscular Hemoglobin Concent 33.8 % (32.0-36.0) 33.3 % (32.0-36.0) 33.7 % (32.0-36.0) Red Cell Distribution Width 15.3 % (11.6-17.2) 15.1 % (11.6-17.2) 15.3 % (11.6-17.2) Platelet Count 126 TH/MM3 (150-450) 118 TH/MM3 (150-450) 110 TH/MM3 (150-450) Mean Platelet Volume 9.0 FL (7.0-11.0) 8.7 FL (7.0-11.0) 8.8 FL (7.0-11.0) Neutrophils (%) (Auto) 64.6 % (16.0-70.0) 74.1 % (16.0-70.0) Lymphocytes (%) (Auto) 30.0 % (9.0-44.0) 22.4 % (9.0-44.0) Monocytes (%) (Auto) 3.5 % (0.0-8.0) 3.3 % (0.0-8.0) Eosinophils (%) (Auto) 0.9 % (0.0-4.0) 0.0 % (0.0-4.0) Basophils (%) (Auto) 1.0 % (0.0-2.0) 0.2 % (0.0-2.0) Neutrophils # (Auto) 2.1 TH/MM3 (1.8-7.7) 2.7 TH/MM3 (1.8-7.7) Lymphocytes # (Auto) 1.0 TH/MM3 (1.0-4.8) 0.8 TH/MM3 (1.0-4.8) Monocytes # (Auto) 0.1 TH/MM3 (0-0.9) 0.1 TH/MM3 (0-0.9) Eosinophils # (Auto) 0.0 TH/MM3 (0-0.4) 0.0 TH/MM3 (0-0.4) Basophils # (Auto) 0.0 TH/MM3 (0-0.2) 0.0 TH/MM3 (0-0.2) CBC Comment DIFF FINAL DIFF FINAL Differential Comment Blood Urea Nitrogen 22 MG/DL (7-18) 17 MG/DL (7-18) Creatinine 0.56 MG/DL (0.60-1.30) 0.56 MG/DL (0.60-1.30) Random Glucose 64 MG/DL (74-106) 89 MG/DL (74-106) Total Protein 5.5 GM/DL (6.4-8.2) Albumin 2.8 GM/DL (3.4-5.0) Calcium Level 8.1 MG/DL (8.5-10.1) 8.2 MG/DL (8.5-10.1) Alkaline Phosphatase 104 U/L (45-117) Aspartate Amino Transf (AST/SGOT) 46 U/L (15-37) Alanine Aminotransferase (ALT/SGPT) 42 U/L (12-78) Total Bilirubin 0.6 MG/DL (0.2-1.0) Sodium Level 144 MEQ/L (136-145) 150 MEQ/L (136-145) Potassium Level 3.5 MEQ/L (3.5-5.1) 3.7 MEQ/L (3.5-5.1) Chloride Level 110 MEQ/L (98-107) 114 MEQ/L (98-107) Carbon Dioxide Level 29.2 MEQ/L (21.0-32.0) 26.9 MEQ/L (21.0-32.0) Anion Gap 5 MEQ/L (5-15) 9 MEQ/L (5-15) Estimat Glomerular Filtration Rate 138 ML/MIN (>89) 138 ML/MIN (>89) Total Creatine Kinase 440 U/L (39-308) Creatine Kinase MB 15.1 NG/ML (0.5-3.6) Creatine Kinase MB % 3.4 % (0.0-4.0) Phosphorus Level 2.2 MG/DL (2.5-4.9) Magnesium Level 2.0 MG/DL (1.5-2.5) Ammonia 31 MCMOL/L (11-32) Vitamin B12 Level 1198 PG/ML (193-986) Result Diagram: 10/19/17 1028 10/19/17 1028 Assessment and Plan Disease Oriented Problem List: (1) Alzheimer's dementia with behavioral disturbance (2) Generalized weakness Symptom Scale: (1) Debility 0-10 Scale: Unable to quantify (2) Confusion 0-10 Scale: Unable to quantify Comment: Hx of alzheimers. . Pertinent Non-Medical Issues Psychosocial:Patient was born and raised in [place], patient was to his Pat for 32 years, they just recently on 10/01/17, per patient's the patient had become more demanding and unreasonable over the past year, she stated she filed for divorce in April due to his unreasonable behavior. Unfortunately the patient was just recently diagnosed with Alzheimer's dementia in July of this year in midst of the divorce process. 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 Spiritual: Holiness. Legal: Per the patient's PCP documentation the patient has expressed mistrust for his ex , he has an estranged son from a previous relationship and has previously verbalized that he does not want his son involved in any decision making or inheritance, the patient has also declined to file any POA/living will paperwork in the office. Patient has no available advanced directives completed. Ethical issues impacting care: None known. Important Contacts Brandie Ac (): [phone], . Prognosis Patient is an 87 year old male with a past medical history significant for Alzheimer's dementia with behavioral disturbances, as well as kyphosis, scoliosis, blepharospasm, squamous cell carcinoma of the skin. Patient was just recently diagnosed with Alzheimer's dementia in July 2017, per the patient' s he has experienced a cognitive decline over the past two years and a marked cognitive/functional decline following his hospitalization in July. The patient is no longer able to complete ADLs independently. Due to his advanced age and Alzheimer's dementia patient is at high risk for complications/ setbacks. . Code Status: Full Code Plan * Legal decision maker: Per psychiatry, patient does not have decision-making capacity to participate in medical decision making at this time.Patient has never completed any written advanced directives. Patient was just recently from his of 32 years on 10/01/17. Per [place] statutes in the absence of written advanced directives health care decision making would fall to the patient's next of kin. The patient's next of kin in his son Yanick Cardenas who is reportedly incarcerated in [place]. Palliative care is attempting to locate the patient's son to determine if he is able to participate in health care decision making and if he is willing to serve as the health care proxy for his father. If the patient's son is unable to participate the patient's next of kin would be an estranged sister, who according to the patient's ex may be unable to participate due to health issues of her own. Patient's ex is willing to serve as health care proxy in the event the patient's son is unable or unwilling to serve. Case management have been requested to run an [employer] report to find patient`s son Yanick Cardenas and patient`s sister Nichole Enriquez. * CODE STATUS: FULL CODE. (By default as legal decision maker needs to be determined) * GOALS: Pending determining legal decision maker/health care proxy. * SYMPTOM MANAGEMENT: * ==Confusion: Secondary to Alzheimer's dementia, unfamiliar environment, etc. Risperidone ordered per psych's recommendations to begin this evening, however patient has been refusing his medications. Recommend frequent reorientation and close monitoring at this time. Patient still confused but calm. Further recommendations pending determination of capacity and determination of legal decision maker/health care proxy to clarify goals. * ==Debility: Multifactorial, contributing factors include advanced age, worsening dementia, unsteady gait, poor balance, malnutrition. Patient followed by physical therapy (PT) who noted that patient has difficulty with ambulation and poor gait-recommended PT at rehabilitation and home with home health care. * Palliative care continue to follow this patient throughout her hospitalization to establish trust, assist with symptom management and clarification of medical treatment goals. . Christianne May Oct 19, 2017 18:18
[2017-10-19] MEDS ORDERED: METOPROLOL TARTRATE 5 MG/5 ML VIAL IV PUSH ONE ×2 (22:30→22:45)
[2017-10-19] MEDS: METOPROLOL TARTRATE 5 MG/5 ML VIAL ONE (22:33)
[2017-10-19] MEDS ORDERED: ASPIRIN 325 MG TAB PO SCH (23:00)
--- NOTE | 2017-10-19 23:23 | RADRPT ---
EXAM DATE/TIME: 10/19/2017 23:10 [facility] COMPARISON: CHEST SINGLE AP, October 16, 2017, 13:01. INDICATIONS : Shortness of breath MEDICAL HISTORY : Cerebrovascular disease. SURGICAL HISTORY : Umbilical hernia repair ENCOUNTER: Subsequent ACUITY: 3 days PAIN SCORE: 6/10 LOCATION: Bilateral chest FINDINGS: Single AP view of the chest. There is now bilateral fairly symmetric pulmonary parenchymal opacity wi th perihilar and lower lung zone predominance. Small bilateral pleural effusions. No evidence of pneu mothorax. Cardiac silhouette within normal limits. Central pulmonary vasculature is somewhat prominen t. CONCLUSION: 1. Increased pulmonary air space opacity, now bilateral with perihilar and lower lung zone predominan ce. Total diagnosis is pulmonary edema versus infection. 2. Small bilateral pleural effusions. Mark Randall MD on October 19, 2017 at 23:19 Board Certified Radiologist. This report was verified electronically.
[2017-10-19 23:28] LABS: BLOOD GAS BASE EXCESS 1.1 mmol/L (-2-2); BLOOD GAS CARBOXYHEMOGLOBIN 1.3 % (0-4); BLOOD GAS HCO3 25 mmol/L (22-26); BLOOD GAS METHEMOGLOBIN 0.7 % (0-2); BLOOD GAS O2 HGB SATURATION 91 % (90-100); BLOOD GAS OXYGEN CONTENT 18.9 Vol % (12.0-20.0); BLOOD GAS PCO2 40 mmHg (38-42); BLOOD GAS PO2 66 mmHg (61-120); BLOOD GAS TOTAL HGB 14.7 G/DL (12.0-16.0); CRITICAL VALUE NO; DRAW SITE LT RADIAL; LITER FLOW 8 L/M; NUMBER OF ARTERIAL PUNCTURES 1; OXYGEN DEVICE SIMPLE MASK; TEMP CORR TO 98.6; ULNAR PULSE PRESENT
[2017-10-19 23:29] LABS: STAT YES
[2017-10-19] MEDS ORDERED: SODIUM CHLOR 0.9% 1000 ML INJ 1,000 ML IV ONE (23:30)
[2017-10-20] VITALS (12 sets, daily range): BP systolic 135–161; BP diastolic 76–95; PULSE 94–146; RESP 21–31; TEMP 97.7–98.5; O2SAT 91–98
[2017-10-20 00:19] LABS: AUTOMATED NEUTROPHIL # 2.8 TH/MM3 (1.8-7.7); BASOPHIL % 1.1 % (0.0-2.0); HEMATOCRIT 45.1 % (39.0-51.0); HEMO FLAGS DIFF FINAL; LYMPH % 23.4 % (9.0-44.0); LYMPHOCYTE # 0.9 TH/MM3 (1.0-4.8); MEAN CELL VOLUME 96.8 FL (80.0-100.0); MONO % 3.2 % (0.0-8.0); NEUT % 72.3 % (16.0-70.0); PLATELET COUNT 140 TH/MM3 (150-450); RED BLOOD COUNT 4.65 MIL/MM3 (4.50-5.90); RED CELL DISTRIBUTION WIDTH 15.2 % (11.6-17.2); WHITE BLOOD COUNT 3.9 TH/MM3 (4.0-11.0)
[2017-10-20 00:30] LABS: INTERNATIONAL NORMALIZED RATIO 1.2 RATIO; PROTHROMBIN TIME - PATIENT 11.8 SEC (9.8-11.6)
[2017-10-20] MEDS ORDERED: SODIUM CHLOR 0.9% 1000 ML INJ 1,000 ML IV ONE (00:30)
[2017-10-20] MEDS ORDERED: AZITHROMYCIN INJ 500 MG in SODIUM CHLOR 0.9% 250 ML INJ 250 ML IV SCH (01:00)
[2017-10-20] MEDS ORDERED: metroNIDAZOLE 500 MG INJ 100 ML IV SCH (01:00)
[2017-10-20] MEDS: SODIUM CHLOR 0.9% 1000 ML INJ 1,000 ML IV SCH ×2 (01:40→09:49)
--- NOTE | 2017-10-20 01:44 | PD.CONS ---
[facility] Service Critical Care Medicine Consult Requested By Reason for Consult Respiratory Failure Primary Care Physician Frances Daly MD History of Present Illness Elderly, frail man with aggravated dementia has developed tachycardia to 140s and respiratory distress. CXR demonstrates heart failure as does clinical exam. He is not edematous peripherally and this appears to be sudden rate related diastolic heart failure. I have reviewed the Palliative Care notes and appreciate the chronicity of his deterioration, apparently accelerating recently. Review of Systems ROS Unobtainable Past Family Social History Allergies: Coded Allergies: No Known Allergies (Unverified Allergy, Unknown, 10/16/17) Physical Exam Vital Signs Vital Signs Date Time Temp Pulse Resp B/P (MAP) Pulse Ox O2 Delivery O2 Flow Rate FiO2 10/19/17 23:29 101.1 145 132/75 (94) 96 10/19/17 23:05 132 118/80 (93) 97 10/19/17 22:55 147 133/90 (104) 96 10/19/17 22:00 95 Simple Mask 8.00 10/19/17 20:01 147 18 133/87 (102) 91 10/19/17 19:00 91 Nasal Cannula 4.00 10/19/17 16:10 97.5 112 18 133/65 (87) 93 10/19/17 11:51 96.2 87 24 136/74 (94) 96 10/19/17 09:20 175/71 (105) 10/19/17 07:48 96.5 94 24 183/81 (115) 91 10/19/17 06:16 91 131/64 (86) 10/19/17 05:41 99.4 106 24 179/70 (106) 93 Physical Exam P 144 sinus, SBP 168, R 45 Head: Normal, eyr lids closed. Pupils 2 mm, reactive. Neck: Chronically stiff, airway widely patent. Lungs: Bilateral crackles. Heart: Tachycardia, neck veins not distended. Abdomen: Benign, no guarding. Extremities: Poor turgor, war, well perfused. Neuro: Moves 4 limbs weakly, DTRs 2+ patellas, otherwise unresponsive. Laboratory Laboratory Tests Test 10/19/17 10:28 10/19/17 23:17 10/20/17 00:00 White Blood Count 3.7 3.9 Red Blood Count 4.29 4.65 Hemoglobin 13.8 14.9 Hematocrit 40.9 45.1 Mean Corpuscular Volume 95.4 96.8 Mean Corpuscular Hemoglobin 32.2 32.0 Mean Corpuscular Hemoglobin Concent 33.7 33.0 Red Cell Distribution Width 15.3 15.2 Platelet Count 110 140 Mean Platelet Volume 8.8 9.0 Neutrophils (%) (Auto) 74.1 72.3 Lymphocytes (%) (Auto) 22.4 23.4 Monocytes (%) (Auto) 3.3 3.2 Eosinophils (%) (Auto) 0.0 0.0 Basophils (%) (Auto) 0.2 1.1 Neutrophils # (Auto) 2.7 2.8 Lymphocytes # (Auto) 0.8 0.9 Monocytes # (Auto) 0.1 0.1 Eosinophils # (Auto) 0.0 0.0 Basophils # (Auto) 0.0 0.0 CBC Comment DIFF FINAL DIFF FINAL Differential Comment Blood Urea Nitrogen 17 Creatinine 0.56 0.68 Random Glucose 89 Calcium Level 8.2 Sodium Level 150 Potassium Level 3.7 Chloride Level 114 Carbon Dioxide Level 26.9 Anion Gap 9 Estimat Glomerular Filtration Rate 138 111 Phosphorus Level 2.2 Magnesium Level 2.0 Ammonia 31 Vitamin B12 Level 1198 Blood Gas Puncture Site LT RADIAL Blood Gas Patient Temperature 98.6 Blood Gas HCO3 25 Blood Gas Base Excess 1.1 Blood Gas Oxygen Saturation 91 Arterial Blood pH 7.42 Arterial Blood Partial Pressure CO2 40 Arterial Blood Partial Pressure O2 66 Arterial Blood Oxygen Content 18.9 Arterial Blood Carboxyhemoglobin 1.3 Arterial Blood Methemoglobin 0.7 Blood Gas Hemoglobin 14.7 Oxygen Delivery Device SIMPLE MASK Blood Gas Liter Flow 8 Prothrombin Time 11.8 Prothromb Time International Ratio 1.2 Activated Partial Thromboplast Time 28.0 Lactic Acid Level 1.9 Total Bilirubin 1.0 Troponin I 0.07 Date/Time Source Procedure Growth Status 10/20/17 00:08 Blood Peripheral Aerobic Blood Culture Pending Received 10/20/17 00:08 Blood Peripheral Anaerobic Blood Culture Pending Received Result Diagram: 10/20/17 0000 10/20/17 0000 Assessment and Plan Assessment and Plan Assessment: 1. Diastolic heart failure, rate exacerbated. 2. Pulmonary edema. 3. Agitated dementia. Plan: 1. Slow heart rate with iv lopressor scheduled. 2. FM O2 to keep sats > 90%. 3. Slow iv fluid. Overall impression: Critically ill and debilitated man in extremis. I'll try to slow his rate and clear his congestion. Prognosis poor. Critical Care 44 mins Jeffy Taylor MD Oct 20, 2017 01:44
[2017-10-20] MEDS: PIPERACIL-TAZO 4.5 GM PREMIX 100 ML IV SCH ×5 (01:59→20:00)
[2017-10-20] MEDS: METOPROLOL TARTRATE 5 MG/5 ML VIAL IV PUSH SCH ×4 (01:59→20:00)
--- NOTE | 2017-10-20 02:01 | HHI.PR ---
Addendum to Inpatient Note Addendum Reason: Additional Documentation Additional Information Called for Loretta at approximately 10:30 PM, [facility] nurse was already present S: Nursing staff alerted us that the patient had become tachycardic recently, no significant change in blood pressure, pulse ox was 97 on NRB 10 L/M upon arrival. The patient reported that he had no difficulty breathing, chest pain, palpitations, nausea, vomiting, headache, abdominal pain, discomfort upon interview. Denies any pain currently. He was minimally talkative and nursing reports this is his baseline. 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 The nurse further reported that the patient had recently attempted eating following a sustained period of being NPO where he had difficulty, and needed to be suctioned. O: P 146 RR 18 BP 136/94 O2 97 T 101.1 GENERAL: Lying in bed, does not make eye contact, no apparent distress, in soft restraints SKIN: Warm and dry. HEAD: Atraumatic. Normocephalic. EYES: Pupils equal and round. No scleral icterus. No injection or drainage. ENT: No nasal bleeding or discharge. Mucous membranes pink and moist. NECK: Trachea midline. No JVD. CARDIOVASCULAR: Regular rhythm, elevated rate without obvious M/R/G RESPIRATORY: No accessory muscle use. Breath sounds equal, however rhonchus B/L with loud transmitted upper respiratory sounds GASTROINTESTINAL: Abdomen soft, non-tender, nondistended. Hepatic and splenic margins not palpable. MUSCULOSKELETAL: Extremities without clubbing, cyanosis, or edema. No obvious deformities. NEUROLOGICAL: Awake and alert. No obvious cranial nerve deficits. Motor grossly within normal limits. Five out of 5 muscle strength in the arms and legs. Speech- answers yes or no questions. CXR: Briefly examined in the room, new right sided air space opacity. Currently with b/l airspace opacities. Will follow up official read A: 87 year old male with history of Alzheimer's dementia currently tachycardic and febrile with a recent possible aspiration event. CXR demonstrate new right sided opacity P: Sepsis possibly 2/2 aspiration: -Transfer to critical care unit -Consult dryer feeder -CXR shows lung likely source of infection -Started on Metronidazole, azithromycin, zosyn -F/U sepsis labs (Cultures, lactic acid, PT, PTT, Creatinine, bilirubin) -1 L fluid bolus -Maintenance fluids Tachycardia: -See plan for sepsis -Metoprolol administered -F/U troponin Garry Bocanegra MD R1 Oct 20, 2017 02:01
[2017-10-20 05:30] LABS: HEMATOCRIT 50.8 % (39.0-51.0); MEAN CELL VOLUME 102.9 FL (80.0-100.0); MEAN CORPUSCULAR HEMOGLOBIN 32.3 PG (27.0-34.0); MEAN CORPUSCULAR HGB CONC 31.4 % (32.0-36.0); PLATELET COUNT 109 TH/MM3 (150-450); RED BLOOD COUNT 4.94 MIL/MM3 (4.50-5.90); RED CELL DISTRIBUTION WIDTH 16.4 % (11.6-17.2); REVIEW FLAG FINAL
[2017-10-20 05:41] LABS: ANION GAP 5 MEQ/L (5-15); BICARBONATE 15.9 MEQ/L (21.0-32.0); BLOOD UREA NITROGEN 18 MG/DL (7-18); CHLORIDE 122 MEQ/L (98-107); POTASSIUM 3.4 MEQ/L (3.5-5.1); SODIUM (NA) 143 MEQ/L (136-145)
[2017-10-20] MEDS: HEPARIN SODIUM - SQ 10,000 UNITS/ML VIAL SQ SCH ×2 (06:34→18:30)
[2017-10-20] MEDS: risperiDONE 0.5 MG TAB PO SCH (09:00)
[2017-10-20] MEDS: DONEPEZIL HCL 5 MG TAB PO SCH (09:00)
[2017-10-20] MEDS: MEMANTINE HCL 5 MG TAB PO SCH (09:00)
[2017-10-20] MEDS: SODIUM CHLORIDE 0.9% FLUSH 10 ML FLUSH IV FLUSH SCH ×2 (09:00→21:38)
[2017-10-20] MEDS: DOCUSATE SODIUM 50 MG/SENNA 8.6 MG TAB PO SCH ×2 (09:00→21:00)
[2017-10-20] MEDS: DIVALPROEX SODIUM SPRINKLES 125 MG CAP PO SCH (09:00)
--- NOTE | 2017-10-20 09:05 | RADRPT ---
EXAM DATE/TIME: 10/20/2017 08:36 [facility] COMPARISON: CT BRAIN W/O CONTRAST, October 16, 2017, 14:44. INDICATIONS : Altered mental status. RADIATION DOSE: 56.35 CTDIvol (mGy) MEDICAL HISTORY : Alzheimer's skin cancer SURGICAL HISTORY : None. ENCOUNTER: Initial ACUITY: 1 day PAIN SCALE: Non-responsive LOCATION: Bilateral head TECHNIQUE: Multiple contiguous axial images were obtained of the head. Using automated exposure control and adj ustment of the mA and/or kV according to patient size, radiation dose was kept as low as reasonably a chievable to obtain optimal diagnostic quality images. DICOM format image data is available electro nically for review and comparison. FINDINGS: CEREBRUM: Diffuse cerebral atrophy is noted. Severe periventricular and subcortical white matter small vessel i schemic changes bilaterally. No evidence of midline shift, mass lesion, hemorrhage or acute infarctio n. No extra-axial fluid collections are seen. POSTERIOR FOSSA: The cerebellum and brainstem are intact. The 4th ventricle is midline. The cerebellopontine angle i s unremarkable. EXTRACRANIAL: The visualized portion of the orbits is intact. SKULL: The calvaria is intact. No evidence of skull fracture. CONCLUSION: 1. Diffuse cerebral atrophy. 2. Severe periventricular and subcortical white matter small vessel ischemic changes bilaterally. 3. No acute infarct, acute hemorrhage, mass effect or extra-axial fluid collections. Dinesh Del Toro MD on October 20, 2017 at 9:01 Board Certified Radiologist. This report was verified electronically.
--- NOTE | 2017-10-20 10:42 | RADRPT ---
EXAM DATE/TIME: 10/20/2017 09:50 [facility] COMPARISON: CHEST SINGLE AP, October 19, 2017, 23:10. INDICATIONS : Shortness of breath, cough, and congestion. MEDICAL HISTORY : Cerebrovascular disease. SURGICAL HISTORY : Umbilical hernia repair. ENCOUNTER: Subsequent ACUITY: 4 - 6 days PAIN SCORE: Non-responsive. LOCATION: chest FINDINGS: The heart is stable. Stable pulmonary infiltrates are noted consistent with probable moderate to kayode re pulmonary edema versus pneumonia. Clinical correlation is recommended. Small pleural effusions are also likely. CONCLUSION: Stable pulmonary infiltrates consistent with probable moderate to severe pulmonary edema versus pneum onia. Clinical correlation is recommended. Small pleural effusions are also likely. Dinesh Del Toro MD on October 20, 2017 at 10:39 Board Certified Radiologist. This report was verified electronically.
--- NOTE | 2017-10-20 10:42 | EKG ---
Date Performed: 10/19/2017 Time Performed: 22:39:11 PTAGE: 87 years EKG: POSSIBLE ATRIAL FLUTTER/TACHYCARDIA WITH RAPID VENTRICULAR RESPONSE LEFT ANTERIOR FASCICULA R BLOCK ANTEROSEPTAL MYOCARDIAL INFARCTION ABNORMAL ECG PREVIOUS TRACING : 10/16/2017 12.52 Compared to previous tracing, heart rate has increased. DOCTOR: Dionte Rojas Interpretating Date/Time 10/20/2017 10:41:43
--- NOTE | 2017-10-20 11:03 | HHI.FPPN ---
Subjective Remarks Patient seen and examined this morning by medical team. Overnight patient transported to ICU and care transferred to the dry wall installer as patient became septic after aspiration versus pulmonary edema event. Patient currently unresponsive on nonrebreather with stable vital signs. Patient is unable to participate during interview and review of systems. (Adria Leyva MD R2) Objective Vitals Vital Signs Date Time Temp Pulse Resp B/P (MAP) Pulse Ox O2 Delivery O2 Flow Rate FiO2 10/20/17 09:28 97 Simple Mask 10.00 10/20/17 06:00 110 10/20/17 04:00 144 10/20/17 04:00 98.5 144 31 136/93 (107) 95 10/20/17 02:00 146 10/20/17 02:00 92 Simple Mask 10.00 10/19/17 23:29 101.1 145 132/75 (94) 96 10/19/17 23:05 132 118/80 (93) 97 10/19/17 22:55 147 133/90 (104) 96 10/19/17 22:00 95 Simple Mask 8.00 10/19/17 21:30 92 Nasal Cannula 4.00 10/19/17 20:01 147 18 133/87 (102) 91 10/19/17 19:00 91 Nasal Cannula 4.00 10/19/17 16:10 97.5 112 18 133/65 (87) 93 10/19/17 11:51 96.2 87 24 136/74 (94) 96 I/O 10/19/17 10/19/17 10/19/17 10/20/17 10/20/17 10/20/17 07:00 15:00 23:00 07:00 15:00 23:00 Intake Total 0 ml 1841 ml Output Total 125 ml Balance 0 ml 1716 ml Intake Oral 0 ml 0 ml IV Total 1841 ml Output Urine Total 125 ml # Voids 3 3 # Bowel Movements 0 (Adria Leyva MD R2) Result Diagram: 10/20/17 0455 10/20/17 0458 Objective Remarks GENERAL: Elderly gentleman lying in bed unresponsive on nonrebreather mask. SKIN: Warm and dry. No rash. HEENT: Marked kyphosis with neck flexion when lying in bed. Mucous membranes dry. No rhinorrhea. No lymphadenopathy or JVD visually appreciated. CARDIOVASCULAR: Irregular rate with irregular rhythm. No MGR. 2+ pulses in all 4 extremities. RESPIRATORY: Clear to auscultation bilaterally. No increased work of breathing. Mild crackles at the bases BL. GASTROINTESTINAL: Abdomen soft, non-tender, nondistended with positive bowel sounds. No masses appreciated. MUSCULOSKELETAL: No cyanosis or edema. Restraints placed on all 4 extremities. NEURO/PSYCH: Patient unresponsive with GCS of 5. (Adria Leyva MD R2) A/P Assessment and Plan 87-year-old male with history of Alzheimer's dementia with behavioral disturbances presents with weakness after falling and inability to care for himself. Patient recently transferred to ICU after episode of aspiration versus pulmonary edema episode. Currently under dry wall installer care. Discharge Planning Discharge pending clinical improvement. Patient will require placement in assisted living facility. (Adria Leyva MD R2) Attending Attestation Patient seen and examined. Case reviewed and discussed with the resident team. Agree with plan of care as discussed with me and documented in the resident note. (Saul Hi MD) Problem List: (1) Respiratory distress ICD Codes: R06.03 - Acute respiratory distress Status: Acute Plan: Patient with acute episode of respiratory distress secondary to pulmonary edema VS. aspiration episode meeting sepsis criteria. Patient transferred to ICU and is currently under dry wall installer care. Imaging/orders/studies: -Repeat chest x-ray: Ordered -Chest x-ray 10/19: Increased pulmonary air space opacity, now bilateral perihilar and lower lung zone predominance. Total diagnosis is pulmonary edema versus infection. Small bilateral pleural effusions. -BNP: Ordered -Blood cultures: Ordered -Troponin: 0.07, 0.06 -Lactic acid 1.9 Medications: -Flagyl, azithromycin, and Zosyn (10/19- ) -Lopressor started for tachycardia -Plan to diurese and decreased fluids pending repeat chest x-ray and BNP (2) Altered mental state ICD Codes: R41.82 - Altered mental status, unspecified Status: Acute Plan: Per nursing, altered mental status overnight. Patient combative. Unable to be redirected. Differential diagnosis: * Alzheimer's dementia versus delirium versus sepsis Vitals/Labs: * Vitals within normal limits. * On admission, WBC 5.1, hemoglobin 14, hematocrit 40.9, platelet count 150. * On admission, CMP grossly normal. * On admission, UA negative. * CBC on 10/19: WBC 3.7, hemoglobin 13.8, hematocrit 40.9, platelet count 110. * BMP on 10/19: Sodium 150. * BMP on 10/20: Sodium 143, potassium 3.4 * B12 1198. Imaging: * Head CT 10/16: No change since prior exam. Aging brain with atrophy. No evidence of acute infarct, hemorrhage, mass or edema. * Repeat head CT ordered stat on 10/19 -diffuse cerebral atrophy. Severe periventricular and subcortical white matter small vessel ischemic changes bilaterally. No acute infarct, hemorrhage, or mass effect or extra-axial fluid collections. Orders: * Bedside glucose ordered on 10/19 in a.m. - 76 * UA ordered on 10/19 in a.m. -trace ketones * Speech therapy consulted for swallow evaluation 10/22: Pure, pudding consistency thickened liquids. * Speech therapy consulted for swallow evaluation 10/19: Patient uncooperative. * Psychiatry re-consult 10/19: Patient does not have competency. Patient does not meet inpatient psych criteria. Medications: * NS 1,000 ml at 120 ml/hr. * Memantine 5 mg daily PO. * Aricept 5 mg daily PO. * Risperidone 0.5 BID PO. * Depakote 125mg BID PO. (3) Alzheimer's dementia with behavioral disturbance ICD Codes: G30.8 - Other Alzheimer's disease; F02.81 - Dementia in other diseases classified elsewhere with behavioral disturbance Status: Chronic Plan: Patient with history of Alzheimer's dementia. Previously evaluated by psychiatry, Dr. Urena. Patient agitated and combative overnight. Placed on soft restraints. Required Haldol. Patient confused this morning. Orders: * Psychiatry consulted; recommended starting Risperdal 0.25 - 0.5 mg BID, Namenda, and Aricept. * Case management and palliative care consulted to help with placement. * Difficulty finding patient's POA as his son is currently incarcerated in [place]. His next of kin would be an estranged sister with no known contact information. Per palliative care, ex becomes decision-maker. PCP, Dr. 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 He has been set up with [facility] and they offered to provide him with caregivers also and he has declined. He and have been given extensive info on [facility]/NH but patient refuses to go anywhere but home... I believe that patient is not safe to live alone at home--on his eval by case management at home he had several space heaters unattended (his heat had broken), he couldn't open containers for food without help, left the stove unattended during evaluation, etc. He has had numerous falls, is unsteady on his feet and frequently doesn't use his assistive devices. He feels that he can drive ( despite not being able to hold his head up to see out the window). Would recommend at least RETIREMENT placement or 24 hour care at home. (4) Generalized weakness ICD Codes: R53.1 - Weakness Status: Acute Plan: Physical deconditioning. Orders: * Physical therapy consult. (5) Hypernatremia ICD Codes: E87.0 - Hyperosmolality and hypernatremia Status: Resolved Plan: Patient with new onset hypernatremia. * See Plan for Altered mental status. * Resolved (6) Elevated CK ICD Codes: R74.8 - Abnormal levels of other serum enzymes Status: Acute Plan: Mildly elevated CK. Creatinine within normal limits. * Monitor. (7) FEN/PPX Status: Acute Plan: Fluids: * NS 1,000 ml at 120 ml/hr. Electrolyte: * Monitor and replete as necessary. Nutrition: * Pure, pudding consistency thickened liquids. DVT prophylaxis: * Heparin 5,000 units q12hr. * SCDs. (Adria Leyva MD R2) Problem Qualifiers (1) Alzheimer's dementia with behavioral disturbance: Qualified Codes: G30.9 - Alzheimer's disease, unspecified; F02.81 - Dementia in other diseases classified elsewhere with behavioral disturbance Adria Leyva MD R2 Oct 20, 2017 11:03 Saul Hi MD Oct 21, 2017 13:44
[2017-10-20 11:23] LABS: BLOOD GAS BASE EXCESS 0.2 mmol/L (-2-2); BLOOD GAS CARBOXYHEMOGLOBIN 1.5 % (0-4); BLOOD GAS HCO3 25 mmol/L (22-26); BLOOD GAS METHEMOGLOBIN 0.8 % (0-2); BLOOD GAS O2 HGB SATURATION 87 % (90-100); BLOOD GAS OXYGEN CONTENT 17.5 Vol % (12.0-20.0); BLOOD GAS PCO2 41 mmHg (38-42); BLOOD GAS PO2 61 mmHg (61-120); BLOOD GAS TOTAL HGB 14.3 G/DL (12.0-16.0); CRITICAL VALUE YES; DRAW SITE LT RADIAL; LITER FLOW 10 L/M; NUMBER OF ARTERIAL PUNCTURES 1; OXYGEN DEVICE SIMPLE MASK; STAT YES; TEMP CORR TO 98.6
[2017-10-20] MEDS ORDERED: FUROSEMIDE 40 MG/4 ML VIAL IV PUSH STA (12:44)
[2017-10-20] MEDS: POTASSIUM CHLORIDE 25 MEQ EFFERVESCENT TAB PO SCH (13:06)
[2017-10-20] MEDS: metroNIDAZOLE 500 MG INJ 100 ML IV SCH ×2 (13:07→21:38)
[2017-10-20] MEDS: FUROSEMIDE 40 MG/4 ML VIAL IV PUSH SCH (18:00)
[2017-10-21] VITALS (15 sets, daily range): BP systolic 80–151; BP diastolic 43–82; PULSE 88–130; RESP 18–28; TEMP 97.4–98.7; O2SAT 85–95
[2017-10-21] MEDS: METOPROLOL TARTRATE 5 MG/5 ML VIAL IV PUSH SCH ×7 (00:36→20:00)
[2017-10-21] MEDS ORDERED: ZIPRASIDONE MESYLATE 20 MG VIAL IM PRN (01:00)
[2017-10-21] MEDS: PIPERACIL-TAZO 4.5 GM PREMIX 100 ML IV SCH ×4 (01:47→20:09)
[2017-10-21] MEDS: AZITHROMYCIN INJ 500 MG in SODIUM CHLOR 0.9% 250 ML INJ 250 ML IV SCH (02:46)
[2017-10-21] MEDS: metroNIDAZOLE 500 MG INJ 100 ML IV SCH ×3 (04:14→22:16)
[2017-10-21] MEDS: HEPARIN SODIUM - SQ 10,000 UNITS/ML VIAL SQ SCH ×2 (06:16→18:54)
[2017-10-21] MEDS: DOCUSATE SODIUM 50 MG/SENNA 8.6 MG TAB PO SCH ×2 (09:00→19:19)
[2017-10-21] MEDS: POTASSIUM CHLORIDE 25 MEQ EFFERVESCENT TAB PO SCH (09:00)
[2017-10-21] MEDS: FUROSEMIDE 40 MG/4 ML VIAL IV PUSH SCH ×2 (09:19→18:54)
[2017-10-21] MEDS ORDERED: MAGNESIUM SULFATE INJ 4 GM in SODIUM CHLORIDE 0.9% INJ 92 ML IV PRN (11:30)
[2017-10-21] MEDS ORDERED: POTASSIUM CHLORIDE 25 MEQ EFFERVESCENT TAB PO PRN (11:30)
[2017-10-21] MEDS ORDERED: POTASSIUM PHOSPHATE MONOBASIC 500 MG TAB PO PRN (11:30)
[2017-10-21] MEDS ORDERED: POTASSIUM CHLOR 20 MEQ PREMIX 100 ML IV PRN ×2 (11:30)
[2017-10-21] MEDS ORDERED: POTASSIUM CHLOR 40 MEQ PREMIX 100 ML IV PRN ×2 (11:30)
[2017-10-21] MEDS ORDERED: MAGNESIUM OXIDE 400 MG TAB PO PRN (11:30)
[2017-10-21] MEDS ORDERED: SODIUM PHOSPHATE INJ 30 MMOL in SODIUM CHLOR 0.9% 250 ML INJ 240 ML IV PRN (11:30)
[2017-10-21] MEDS ORDERED: POTASSIUM PHOSPHATE MONOBASIC 500 MG TAB PO/TUBE PRN (11:30)
[2017-10-21] MEDS ORDERED: POTASSIUM PHOSPHATE INJ 30 MMOL in SODIUM CHLOR 0.9% 250 ML INJ 250 ML IV PRN (11:30)
[2017-10-21] MEDS ORDERED: MAGNESIUM SULFATE INJ 2 GM in SODIUM CHLORIDE 0.9% INJ 96 ML IV PRN (11:30)
[2017-10-21] MEDS: SODIUM CHLORIDE 0.9% FLUSH 10 ML FLUSH IV FLUSH SCH ×2 (11:46→22:16)
--- NOTE | 2017-10-21 12:24 | HHI.FPPN ---
Subjective Remarks Long discussion with Dr. Ruffin, ex- Ms. Ac, Dr. Hi and nursing about goals of care going forward. Ex states that her ex- has stated on many occasions he would not want CPR or intubation if he should need it. She is willing to sign documentation to this effect. Nursing states patient recieved geodon overnight and has been sleeping since. No problems. Patient unarousable at this time. ROS limited. (Mark Angela MD, R3) Objective Vitals Vital Signs Date Time Temp Pulse Resp B/P (MAP) Pulse Ox O2 Delivery O2 Flow Rate FiO2 10/21/17 10:00 88 10/21/17 09:31 92 Simple Mask 10.00 10/21/17 08:00 98.5 88 18 80/43 (55) 95 10/21/17 08:00 118 10/21/17 07:00 Simple Mask 10.00 10/21/17 06:00 118 10/21/17 04:00 98.3 100 28 112/58 (76) 92 10/21/17 04:00 118 10/21/17 03:28 94 Simple Mask 10.00 10/21/17 02:00 107 10/21/17 00:00 98.7 100 20 132/82 (99) 95 10/20/17 22:00 110 10/20/17 20:00 97.7 110 21 161/84 (109) 97 10/20/17 20:00 Simple Mask 10.00 10/20/17 20:00 108 10/20/17 18:00 124 10/20/17 16:00 98.5 120 26 149/82 (104) 98 10/20/17 16:00 143 I/O 10/20/17 10/20/17 10/20/17 10/21/17 10/21/17 10/21/17 07:00 15:00 23:00 07:00 15:00 23:00 Intake Total 1841 ml 300 ml 1402 ml 450 ml Output Total 125 ml 1800 ml 700 ml Balance 1716 ml 300 ml -398 ml -250 ml Intake Oral 0 ml 0 ml 0 ml IV Total 1841 ml 300 ml 1402 ml 450 ml Output Urine Total 125 ml 1800 ml 700 ml # Voids 3 # Bowel Movements 0 0 0 (Mark Angela MD, R3) Result Diagram: 10/20/17 0455 10/20/17 0458 Objective Remarks GENERAL: Elderly gentleman lying in bed unresponsive on nonrebreather mask. SKIN: Warm and dry. No rash. HEENT: Marked kyphosis with neck flexion when lying in bed. Mucous membranes dry. No rhinorrhea. No lymphadenopathy or JVD visually appreciated. CARDIOVASCULAR: Irregular rate with irregular rhythm. No MGR. 2+ pulses in all 4 extremities. RESPIRATORY: Clear to auscultation anteriorly. No increased work of breathing. Mild crackles at the bases BL. GASTROINTESTINAL: Abdomen soft, non-tender, nondistended with positive bowel sounds. No masses appreciated. MUSCULOSKELETAL: No cyanosis or edema. Restraints placed on all 4 extremities. NEURO/PSYCH: Patient unarousable at this time. (Mark Angela MD, R3) A/P Assessment and Plan 87-year-old male with history of Alzheimer's dementia with behavioral disturbances presents with weakness after falling and inability to care for himself. Patient recently transferred to ICU after episode of aspiration versus pulmonary edema episode. Currently under ophthalmic aide care. Discharge Planning Patient will require placement in assisted living facility. Note: 10/21/19: Long discussion with Dr. Ruffin, ex- Ms. Ac, Dr. Hi and nursing about goals of care going forward. Ex states that her ex- has stated on many occasions he would not want CPR or intubation if he should need it. She is willing to sign documentation to this effect. (Mark Angela MD, R3) Attending Attestation Patient seen and examined. Case reviewed and discussed with the resident team. Agree with plan of care as discussed with me and documented in the resident note. I did speak with Mr. Ac's ex- (Brandie Ac) )who is here to visit him this morning. I updated her on his current status and our concern regarding possible need to intubate him if his respiratory status further deteriorated. Their finalized divorce was very recent and she still remains his most appropriate health care surrogate. She is a retired nurse. His son is in custodial (and there are questions regarding Mr. Ac's paternity of this individual). There is a sister who has not been available for guidance and reportedly is estranged for many years. Mrs. Ac notes that she and Mr. Ac spoke in the past about being kept alive by artificial means and although Mr. Ac noted that he was "strong and would never need to be resuscitate" they both agreed that they would not like their lives prolonged via a respiratory or CPR when the clinical outlook was dismal. We have asked her to complete the necessary papers to carry out these expressed wishes so that Mr. Ac is not intubated and not subjected to CPR. She is willing to sign the appropriate papers. On a separate note I discussed the course of his dementing illness. She notes that his personality has been "difficult" for many years. More recently prior to this hospitalization he reported visual hallucinations which would the etiology of his dementia is Lewy Body type when look at in terms of his motor- changes and less severely affected cognitive function. (Saul Hi MD) Problem List: (1) Respiratory distress ICD Codes: R06.03 - Acute respiratory distress Status: Acute Plan: Patient with acute episode of respiratory distress secondary to pulmonary edema VS. aspiration episode meeting sepsis criteria. Patient transferred to ICU and is currently under ophthalmic aide care. Currently on face mask. Currently, patient is DNR and no intubation per the patients wishes as discussed with the patient on many occasions with ex . Palliative following Medications: -Flagyl, azithromycin, and Zosyn (10/19- ) -Lasix 40 mg IV bid (2) Altered mental state ICD Codes: R41.82 - Altered mental status, unspecified Status: Acute Plan: Per nursing, altered mental status overnight 10/19. Patient combative. Unable to be redirected. Differential diagnosis: * Alzheimer's dementia versus delirium versus sepsis Imaging: * Head CT 10/16: No change since prior exam. Aging brain with atrophy. No evidence of acute infarct, hemorrhage, mass or edema. * Repeat head CT ordered stat on 10/19 -diffuse cerebral atrophy. Severe periventricular and subcortical white matter small vessel ischemic changes bilaterally. No acute infarct, hemorrhage, or mass effect or extra-axial fluid collections. Orders: * Bedside glucose ordered on 10/19 in a.m. - 76 * UA ordered on 10/19 in a.m. -trace ketones * Speech therapy consulted for swallow evaluation 10/22: Pure, pudding consistency thickened liquids. * Speech therapy consulted for swallow evaluation 10/19: Patient uncooperative. * Psychiatry re-consult 10/19: Patient does not have competency. Patient does not meet inpatient psych criteria. Medications: * NS 1,000 ml at 120 ml/hr. * Memantine 5 mg daily PO. * Aricept 5 mg daily PO. * Risperidone 0.5 BID PO. * Depakote 125mg BID PO. (3) Alzheimer's dementia with behavioral disturbance ICD Codes: G30.8 - Other Alzheimer's disease; F02.81 - Dementia in other diseases classified elsewhere with behavioral disturbance Status: Chronic Plan: Patient with history of Alzheimer's dementia. Previously evaluated by psychiatry, Dr. Urena. Patient agitated and combative overnight. Placed on soft restraints. Required Haldol. Patient confused this morning. Orders: * Psychiatry consulted; recommended starting Risperdal 0.25 - 0.5 mg BID, Namenda, and Aricept. * Case management and palliative care consulted to help with placement. * Difficulty finding patient's POA as his son is currently incarcerated in [place]. His next of kin would be an estranged sister with no known contact information. Per palliative care, ex becomes decision-maker. PCP, Dr. 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 He has been set up with [facility] and they offered to provide him with caregivers also and he has declined. He and have been given extensive info on [facility] but patient refuses to go anywhere but home... I believe that patient is not safe to live alone at home--on his eval by case management at home he had several space heaters unattended (his heat had broken), he couldn't open containers for food without help, left the stove unattended during evaluation, etc. He has had numerous falls, is unsteady on his feet and frequently doesn't use his assistive devices. He feels that he can drive ( despite not being able to hold his head up to see out the window). Would recommend at least GUY placement or 24 hour care at home. (4) Generalized weakness ICD Codes: R53.1 - Weakness Status: Acute Plan: Physical deconditioning. Orders: * Physical therapy consult. (5) FEN/PPX Status: Acute Plan: Fluids: * per CC Electrolyte: * Monitor and replete as necessary. Nutrition: * Likely will get NG tube per CC DVT prophylaxis: * Heparin 5,000 units q12hr. * SCDs. (Mark Angela MD, R3) Problem Qualifiers (1) Alzheimer's dementia with behavioral disturbance: Qualified Codes: G30.9 - Alzheimer's disease, unspecified; F02.81 - Dementia in other diseases classified elsewhere with behavioral disturbance Mark Angela MD, R3 Oct 21, 2017 12:24 Saul Hi MD Oct 21, 2017 14:14
--- NOTE | 2017-10-21 12:34 | HHI.FPPN ---
Addendum to progress note ADDENDUM Reason for addendum: Additonal documentation Additional information OFF SERVICE NOTE: Patient originally admitted 10/16/17 after having fallen at home. Patient has a history of dementia. Recently hospitalized for 6 days in July. At that time he was diagnosed with Alzheimer's dementia with behavioral disturbance. Per the ex- and PCP Dr. 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 He has been set up with [facility] and they offered to provide him with caregivers also and he has declined. He and his exwife have been given extensive info on P[facility]/NH but patient refuses to go anywhere but home. 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 Ex states patient has always been demanding and difficult, however, it has become much worse recently. She filed for divorce and as of last month, 09/2017, they are officially . Palliative care has been consulted for goals of care. They have attempted to locate a healthcare surrogate, but have been unsuccessful. As of now, the ex- of 30 years is speaking for the patient. She states the patient would not want to be intubated or have CPR as has been discussed on multiple occasions. She is willing to sign paper work. This discussion took place on 10/21/[address] Ruffin and Dr. Hi present. Pyschiatry has been consulted and states the patient is currently not competent to make decisions. Overnight on 10/19-10/20 at 0200, residents were called for a Halicat secondary to suspected sepsis from aspiration. Critical care was consulted at that time and currently managing. As of now, patient has been stable on a face mask. He is on empiric abx metronidazole, zosyn, and azithromycin. He is currently stable but still in critical condition. The major development has been a change in his code status as discussed above. Palliative will follow up on Sunday to clarify goals further. Mark Angela MD, R3 Oct 21, 2017 12:34
--- NOTE | 2017-10-21 12:39 | RADRPT ---
EXAM DATE/TIME: 10/21/2017 11:22 [facility] COMPARISON: CHEST SINGLE AP, October 20, 2017, 9:50. INDICATIONS : Shortness of breath. MEDICAL HISTORY : Cerebrovascular disease. SURGICAL HISTORY : Umbilical hernia repair. ENCOUNTER: Initial ACUITY: 1 day PAIN SCORE: Non-responsive. LOCATION: Bilateral chest FINDINGS: A single view of the chest demonstrates bilateral perihilar vascular congestion with central prominen ce similar to the previous study. There are moderate-sized bilateral pleural effusions. Osseous struc tures are intact. CONCLUSION: Stay stable perihilar vascular congestion with pleural effusions. No visible pneumothorax. Thomas France MD on October 21, 2017 at 12:36 Board Certified Radiologist. This report was verified electronically.
--- NOTE | 2017-10-21 12:43 | HHI.CCPN ---
Subjective Remarks/Hospital Course Elderly, frail man with aggravated dementia has developed tachycardia to 140s and respiratory distress. CXR demonstrates heart failure as does clinical exam. He is not edematous peripherally and this appears to be sudden rate related diastolic heart failure. I have reviewed the Palliative Care notes and appreciate the chronicity of his deterioration, apparently accelerating recently. Remains on 10 L oxygen by facemask. Good urine output with Lasix. Chest x-ray continued shock pulmonary vascular congestion and bilateral pleural effusions. Patient's ex - 3 weeks ago-states the patient would not want to be intubated or have CPR as has been discussed on multiple occasions. She is willing to sign paper work. Will discuss legality with case management, but patient is appropriate for DNR Objective Vital Signs Date Time Temp Pulse Resp B/P (MAP) Pulse Ox O2 Delivery O2 Flow Rate FiO2 10/21/17 10:00 88 10/21/17 09:31 92 Simple Mask 10.00 10/21/17 08:00 98.5 18 80/43 (55) Intake and Output 10/21/17 10/21/17 10/22/17 08:00 16:00 00:00 Intake Total 450 ml Output Total 700 ml Balance -250 ml Result Diagram: 10/20/17 0455 10/20/17 0458 Objective Remarks P 90 sinus, RR 30 Head: Normal, eyr lids closed. Pupils 2 mm, reactive. Neck: Chronically stiff, airway patent. Lungs: Bilateral crackles. No wheezes Heart: Tachycardia, neck veins not distended. Abdomen: Soft nontender, no guarding. Extremities: Poor turgor, well perfused. Neuro: Moves 4 limbs weakly, opens eyes to painful stimuli. A/P Assessment and Plan Assessment: 1. Diastolic heart failure, rate exacerbated. 2. Pulmonary edema. 3. Agitated dementia. Plan: -Slow heart rate with iv lopressor scheduled. -IV Lasix 40 mg q12 -Insert [place] for accurate I/O -FM O2 to keep sats > 90%. -Patient's ex stated that the patient would not want to be intubated or have CPR. She is willing to sign paper work. Will discuss legality with case management, but patient is appropriate for DNR Overall impression: Critically ill and debilitated man in extremis. Prognosis poor. Appropriate for DNR and Hospice Critical Care 32 mins Thao Ruffin MD Oct 21, 2017 12:43
[2017-10-21] MEDS ORDERED: DILTIAZEM INJ 125 MG in SODIUM CHLORIDE 0.9% INJ 100 ML IV PRN (20:30)
[2017-10-21] MEDS ORDERED: DILTIAZEM HCL 25 MG/5 ML VIAL IV PUSH ONE (20:30)
[2017-10-22] VITALS (10 sets, daily range): BP systolic 84–128; BP diastolic 57–66; PULSE 101–130; RESP 17–32; TEMP 97.5–98.5; O2SAT 91–96
[2017-10-22] MEDS: PIPERACIL-TAZO 4.5 GM PREMIX 100 ML IV SCH ×2 (01:50→09:48)
[2017-10-22 02:30] LABS: BLOOD GAS HCO3 27 mmol/L (22-26); BLOOD GAS METHEMOGLOBIN 0.8 % (0-2); BLOOD GAS O2 HGB SATURATION 88 % (90-100); BLOOD GAS OXYGEN CONTENT 19.1 Vol % (12.0-20.0); BLOOD GAS PCO2 32 mmHg (38-42); BLOOD GAS PO2 54 mmHg (61-120); BLOOD GAS TOTAL HGB 15.5 G/DL (12.0-16.0); TEMP CORR TO 98.6
[2017-10-22 02:31] LABS: CRITICAL VALUE YES; DRAW SITE LT RADIAL; FIO2 100 %; LITER FLOW 30 L/M; NUMBER OF ARTERIAL PUNCTURES 1; OXYGEN DEVICE HFNC; STAT NO; ULNAR PULSE PRESENT
[2017-10-22] MEDS: AZITHROMYCIN INJ 500 MG in SODIUM CHLOR 0.9% 250 ML INJ 250 ML IV SCH (02:44)
[2017-10-22] MEDS ORDERED: POTASSIUM CHLOR 20 MEQ PREMIX 100 ML IV ONE (03:00)
[2017-10-22] MEDS ORDERED: FUROSEMIDE 40 MG/4 ML VIAL IV PUSH ONE (03:00)
[2017-10-22] MEDS: POTASSIUM CHLOR 10 MEQ PREMIX 100 ML IV SCH ×2 (03:13→04:26)
[2017-10-22] MEDS: METOPROLOL TARTRATE 5 MG/5 ML VIAL IV PUSH SCH ×5 (04:00→12:35)
[2017-10-22] MEDS ORDERED: DEXMEDETOMIDINE INJ 200 MCG in SODIUM CHLORIDE 0.9% INJ 50 ML IV PRN (04:45)
[2017-10-22] MEDS ORDERED: PHENYLEPHRINE HCL 10 MG/ML VIAL ONE (05:07)
[2017-10-22] MEDS: PHENYLEPHRINE INJ 40 MG in DEXTROSE 5% IN WATE 500 ML INJ 496 ML IV PRN ×4 (05:08→09:46)
[2017-10-22] MEDS ORDERED: TERBUTALINE INJ 1 MG/ML AMP SQ PRN (05:15)
[2017-10-22] MEDS: HEPARIN SODIUM - SQ 10,000 UNITS/ML VIAL SQ SCH (05:46)
[2017-10-22] MEDS: metroNIDAZOLE 500 MG INJ 100 ML IV SCH (05:46)
[2017-10-22 06:28] LABS: AUTOMATED NEUTROPHIL # 4.7 TH/MM3 (1.8-7.7); BASOPHIL % 0.4 % (0.0-2.0); HEMATOCRIT 44.7 % (39.0-51.0); HEMO FLAGS DIFF FINAL; LYMPH % 28.7 % (9.0-44.0); MEAN CELL VOLUME 97.4 FL (80.0-100.0); MEAN CORPUSCULAR HEMOGLOBIN 32.5 PG (27.0-34.0); MEAN CORPUSCULAR HGB CONC 33.3 % (32.0-36.0); MONO % 1.9 % (0.0-8.0); PLATELET COUNT 109 TH/MM3 (150-450); RED BLOOD COUNT 4.59 MIL/MM3 (4.50-5.90); RED CELL DISTRIBUTION WIDTH 15.7 % (11.6-17.2); WHITE BLOOD COUNT 6.9 TH/MM3 (4.0-11.0)
[2017-10-22 07:15] LABS: ALKALINE PHOSPHATASE 88 U/L (45-117); ALT (GPT) 24 U/L (12-78); ANION GAP 10 MEQ/L (5-15); AST (GOT) 20 U/L (15-37); BLOOD UREA NITROGEN 40 MG/DL (7-18); CHLORIDE 122 MEQ/L (98-107); GLOMERULAR FILTRATION RATE 55 ML/MIN (>89); MAGNESIUM 1.9 MG/DL (1.5-2.5); TOTAL BILIRUBIN ADULT 1.2 MG/DL (0.2-1.0)
[2017-10-22 07:26] LABS: POTASSIUM 2.5 MEQ/L (3.5-5.1); SODIUM (NA) 159 MEQ/L (136-145)
[2017-10-22] MEDS: DOCUSATE SODIUM 50 MG/SENNA 8.6 MG TAB PO SCH (09:46)
[2017-10-22] MEDS: POTASSIUM CHLORIDE 25 MEQ EFFERVESCENT TAB PO SCH (09:46)
[2017-10-22] MEDS: SODIUM CHLORIDE 0.9% FLUSH 10 ML FLUSH IV FLUSH SCH (09:46)
--- NOTE | 2017-10-22 09:46 | HHI.HCPN ---
Received [employer] results. Milena Enriquez (age 86) in [place], [place], #. Spoke with Nichole and confirmed she is Mr. Ac's sister. States she has not spoken with him in 5-10 years. They have been estranged since the of their mother. Milena states she DOES NOT wish to participate in medical decision making for Mr. Ac. Confirms there are no other family members and verbalizes she feels his (ex) would be the best to make these decisions. Milena requests her number be given to Pat to be updated on Mr. Ac. Palliative care MD to follow-up with ex- Brandie today. Code status, [facility], family meeting pending. Anila Allison, FURNITURE ARRANGER Oct 22, 2017 09:46
[2017-10-22] MEDS: FUROSEMIDE 40 MG/4 ML VIAL IV PUSH SCH (09:47)
--- NOTE | 2017-10-22 10:16 | HHI.HCPN ---
Reason for visit a. To assist with evaluation and management of symptoms including: anxiety, and dyspnea b. To assist medical decision maker(s) with: better understanding of current medical conditions; weighing benefits/burdens of medical treatment options; making medical treatment decisions. . Subjective/Interval History Patient over the weekend have respiratory distress, and continue to be agitated. Pulling off high flow, could not start bipap (pt had been pulling off ) and required restraints. He is grimacing, moaning and lethargic, currently on hi-flow. Gardening Supervisor Anila have spoken with pt's sister Milena Lyn who does not want to participate as healthcare proxy, therefore ex Brandie Ac is the health care proxy. She has expressed she wanted to make patient a DNR. Pt is tachypnic. lethargic, declining. Could not give hx. Family/friend interactions Spoke with pt's ex and now health care proxy. She is amenable to transition to comfort measures only. Review hospice, comfort meds in which she is amenable to. Discussed prognosis and his respiratory insufficiency and spoke that pt will pass away from current hospitalization. She understands, ameanble to comfort meds, no abx, no tube feedings, and care center for managment of symptoms. Change code status to DNR Advance Directives Living Will: Never completed Health Care Surrogate: Never completed Durable Power of House Visitor: Never completed Objective Vital Signs Date Time Temp Pulse Resp B/P (MAP) Pulse Ox O2 Delivery O2 Flow Rate FiO2 10/22/17 09:46 124 119/67 10/22/17 06:00 108 10/22/17 05:08 123 62/42 10/22/17 04:00 107 10/22/17 04:00 97.5 107 17 84/57 (66) 91 10/22/17 03:45 91 Bi-Pap 100 10/22/17 03:35 93 100 10/22/17 02:00 108 10/22/17 00:45 96 88/52 10/22/17 00:00 102 10/22/17 00:00 97.6 102 32 113/66 (82) 92 10/21/17 22:30 115 120/72 10/21/17 22:00 120 10/21/17 22:00 120 10/21/17 22:00 120 141/70 10/21/17 21:15 93 High Flow Nasal Cannula 30.00 100 10/21/17 20:43 94 133/61 10/21/17 20:15 90 Non-Rebreather 100 10/21/17 20:00 97.4 130 19 110/66 (81) 90 10/21/17 20:00 130 10/21/17 20:00 90 Simple Mask 10.00 10/21/17 19:30 85 Non-Rebreather 15.00 10/21/17 16:00 98.7 91 18 113/59 (77) 95 10/21/17 16:00 96 10/21/17 14:00 110 10/21/17 12:00 116 10/21/17 12:00 98.7 116 21 151/74 (99) 95 Intake & Output 10/22/17 10/22/17 06:59 18:59 Intake Total 1104 ml Output Total 475 ml Balance 629 ml IV Total 1104 ml Output Urine Total 475 ml Physical Exam CONSTITUTIONAL/GENERAL: This is an elderly cachetic male patient resting in bed , grimacing, moaning, lethargic, dyspneic on high flow. SKIN: Ecchymoses on upper extremities. Multiple lesions on chest and anterior shoulders that appear to be actinic keratosis. Skin temperature appropriate. Not diaphoretic. HEAD: Atraumatic. Normocephalic. EYES: Pupils equal and round and reactive. Extraocular motions intact. No scleral icterus. No injection or drainage. Fundi not examined. ENT: Hearing grossly normal. Nose without bleeding or purulent drainage. Oral mucosa dry. NECK: Trachea midline. Supple, nontender. No palpable thyroid enlargement or nodularity. CARDIOVASCULAR: Regular rate and rhythm without murmurs, gallops, or rubs. No JVD. Peripheral pulses symmetric. RESPIRATORY/CHEST: Labored breathing Diminished breath sounds bilaterally. Rhonchi bilaterally GASTROINTESTINAL: Abdomen soft, non-tender, nondistended. Bowel sounds present. GENITOURINARY: Without palpable bladder distension. MUSCULOSKELETAL: Extremities without clubbing, cyanosis, or edema. No mottling or clubbing. LYMPHATICS: No palpable cervical or supraclavicular adenopathy. NEUROLOGICAL: lethargic, confused. PSYCHIATRIC: agitated. . Diagnostic Tests Laboratory Laboratory Tests Test 10/19/17 10:28 10/19/17 23:17 10/20/17 00:00 10/20/17 04:55 White Blood Count 3.7 TH/MM3 (4.0-11.0) 3.9 TH/MM3 (4.0-11.0) 3.0 TH/MM3 (4.0-11.0) Red Blood Count 4.29 MIL/MM3 (4.50-5.90) 4.65 MIL/MM3 (4.50-5.90) 4.94 MIL/MM3 (4.50-5.90) Hemoglobin 13.8 GM/DL (13.0-17.0) 14.9 GM/DL (13.0-17.0) 15.9 GM/DL (13.0-17.0) Hematocrit 40.9 % (39.0-51.0) 45.1 % (39.0-51.0) 50.8 % (39.0-51.0) Mean Corpuscular Volume 95.4 FL (80.0-100.0) 96.8 FL (80.0-100.0) 102.9 FL (80.0-100.0) Mean Corpuscular Hemoglobin 32.2 PG (27.0-34.0) 32.0 PG (27.0-34.0) 32.3 PG (27.0-34.0) Mean Corpuscular Hemoglobin Concent 33.7 % (32.0-36.0) 33.0 % (32.0-36.0) 31.4 % (32.0-36.0) Red Cell Distribution Width 15.3 % (11.6-17.2) 15.2 % (11.6-17.2) 16.4 % (11.6-17.2) Platelet Count 110 TH/MM3 (150-450) 140 TH/MM3 (150-450) 109 TH/MM3 (150-450) Mean Platelet Volume 8.8 FL (7.0-11.0) 9.0 FL (7.0-11.0) 9.2 FL (7.0-11.0) Neutrophils (%) (Auto) 74.1 % (16.0-70.0) 72.3 % (16.0-70.0) Lymphocytes (%) (Auto) 22.4 % (9.0-44.0) 23.4 % (9.0-44.0) Monocytes (%) (Auto) 3.3 % (0.0-8.0) 3.2 % (0.0-8.0) Eosinophils (%) (Auto) 0.0 % (0.0-4.0) 0.0 % (0.0-4.0) Basophils (%) (Auto) 0.2 % (0.0-2.0) 1.1 % (0.0-2.0) Neutrophils # (Auto) 2.7 TH/MM3 (1.8-7.7) 2.8 TH/MM3 (1.8-7.7) Lymphocytes # (Auto) 0.8 TH/MM3 (1.0-4.8) 0.9 TH/MM3 (1.0-4.8) Monocytes # (Auto) 0.1 TH/MM3 (0-0.9) 0.1 TH/MM3 (0-0.9) Eosinophils # (Auto) 0.0 TH/MM3 (0-0.4) 0.0 TH/MM3 (0-0.4) Basophils # (Auto) 0.0 TH/MM3 (0-0.2) 0.0 TH/MM3 (0-0.2) CBC Comment DIFF FINAL DIFF FINAL Differential Comment Blood Urea Nitrogen 17 MG/DL (7-18) Creatinine 0.56 MG/DL (0.60-1.30) 0.68 MG/DL (0.60-1.30) Random Glucose 89 MG/DL (74-106) Calcium Level 8.2 MG/DL (8.5-10.1) Sodium Level 150 MEQ/L (136-145) Potassium Level 3.7 MEQ/L (3.5-5.1) Chloride Level 114 MEQ/L (98-107) Carbon Dioxide Level 26.9 MEQ/L (21.0-32.0) Anion Gap 9 MEQ/L (5-15) Estimat Glomerular Filtration Rate 138 ML/MIN (>89) 111 ML/MIN (>89) Phosphorus Level 2.2 MG/DL (2.5-4.9) Magnesium Level 2.0 MG/DL (1.5-2.5) Ammonia 31 MCMOL/L (11-32) Vitamin B12 Level 1198 PG/ML (193-986) Blood Gas Puncture Site LT RADIAL Blood Gas Patient Temperature 98.6 Blood Gas HCO3 25 mmol/L (22-26) Blood Gas Base Excess 1.1 mmol/L (-2-2) Blood Gas Oxygen Saturation 91 % (90-100) Arterial Blood pH 7.42 (7.380-7.420) Arterial Blood Partial Pressure CO2 40 mmHg (38-42) Arterial Blood Partial Pressure O2 66 mmHg (61-120) Arterial Blood Oxygen Content 18.9 Vol % (12.0-20.0) Arterial Blood Carboxyhemoglobin 1.3 % (0-4) Arterial Blood Methemoglobin 0.7 % (0-2) Blood Gas Hemoglobin 14.7 G/DL (12.0-16.0) Oxygen Delivery Device SIMPLE MASK Blood Gas Liter Flow 8 L/M Prothrombin Time 11.8 SEC (9.8-11.6) Prothromb Time International Ratio 1.2 RATIO Activated Partial Thromboplast Time 28.0 SEC (24.3-30.1) Lactic Acid Level 1.9 mmol/L (0.4-2.0) Total Bilirubin 1.0 MG/DL (0.2-1.0) Troponin I 0.07 NG/ML (0.02-0.05) 0.06 NG/ML (0.02-0.05) Test 10/20/17 04:58 10/20/17 10:35 10/20/17 11:13 10/20/17 13:38 Blood Urea Nitrogen 18 MG/DL (7-18) Creatinine 0.58 MG/DL (0.60-1.30) Random Glucose 76 MG/DL (74-106) Calcium Level 8.0 MG/DL (8.5-10.1) Sodium Level 143 MEQ/L (136-145) Potassium Level 3.4 MEQ/L (3.5-5.1) Chloride Level 122 MEQ/L (98-107) Carbon Dioxide Level 15.9 MEQ/L (21.0-32.0) Anion Gap 5 MEQ/L (5-15) B-Type Natriuretic Peptide 801 PG/ML (0-100) Blood Gas Puncture Site LT RADIAL Blood Gas Patient Temperature 98.6 Blood Gas HCO3 25 mmol/L (22-26) Blood Gas Base Excess 0.2 mmol/L (-2-2) Blood Gas Oxygen Saturation 87 % (90-100) Arterial Blood pH 7.39 (7.380-7.420) Arterial Blood Partial Pressure CO2 41 mmHg (38-42) Arterial Blood Partial Pressure O2 61 mmHg (61-120) Arterial Blood Oxygen Content 17.5 Vol % (12.0-20.0) Arterial Blood Carboxyhemoglobin 1.5 % (0-4) Arterial Blood Methemoglobin 0.8 % (0-2) Blood Gas Hemoglobin 14.3 G/DL (12.0-16.0) Oxygen Delivery Device SIMPLE MASK Blood Gas Liter Flow 10 L/M Troponin I 0.06 NG/ML (0.02-0.05) Test 10/22/17 02:19 10/22/17 05:59 Blood Gas Puncture Site LT RADIAL Blood Gas Patient Temperature 98.6 Blood Gas HCO3 27 mmol/L (22-26) Blood Gas Base Excess 4.0 mmol/L (-2-2) Blood Gas Oxygen Saturation 88 % (90-100) Arterial Blood pH 7.53 (7.380-7.420) Arterial Blood Partial Pressure CO2 32 mmHg (38-42) Arterial Blood Partial Pressure O2 54 mmHg (61-120) Arterial Blood Oxygen Content 19.1 Vol % (12.0-20.0) Arterial Blood Carboxyhemoglobin 1.0 % (0-4) Arterial Blood Methemoglobin 0.8 % (0-2) Blood Gas Hemoglobin 15.5 G/DL (12.0-16.0) Oxygen Delivery Device HFNC Blood Gas Liter Flow 30 L/M Blood Gas Inspired Oxygen 100 % White Blood Count 6.9 TH/MM3 (4.0-11.0) Red Blood Count 4.59 MIL/MM3 (4.50-5.90) Hemoglobin 14.9 GM/DL (13.0-17.0) Hematocrit 44.7 % (39.0-51.0) Mean Corpuscular Volume 97.4 FL (80.0-100.0) Mean Corpuscular Hemoglobin 32.5 PG (27.0-34.0) Mean Corpuscular Hemoglobin Concent 33.3 % (32.0-36.0) Red Cell Distribution Width 15.7 % (11.6-17.2) Platelet Count 109 TH/MM3 (150-450) Mean Platelet Volume 10.0 FL (7.0-11.0) Neutrophils (%) (Auto) 69.0 % (16.0-70.0) Lymphocytes (%) (Auto) 28.7 % (9.0-44.0) Monocytes (%) (Auto) 1.9 % (0.0-8.0) Eosinophils (%) (Auto) 0.0 % (0.0-4.0) Basophils (%) (Auto) 0.4 % (0.0-2.0) Neutrophils # (Auto) 4.7 TH/MM3 (1.8-7.7) Lymphocytes # (Auto) 2.0 TH/MM3 (1.0-4.8) Monocytes # (Auto) 0.1 TH/MM3 (0-0.9) Eosinophils # (Auto) 0.0 TH/MM3 (0-0.4) Basophils # (Auto) 0.0 TH/MM3 (0-0.2) CBC Comment DIFF FINAL Differential Comment Blood Urea Nitrogen 40 MG/DL (7-18) Creatinine 1.24 MG/DL (0.60-1.30) Random Glucose 105 MG/DL (74-106) Total Protein 5.3 GM/DL (6.4-8.2) Albumin 2.0 GM/DL (3.4-5.0) Calcium Level 7.7 MG/DL (8.5-10.1) Phosphorus Level 1.7 MG/DL (2.5-4.9) Magnesium Level 1.9 MG/DL (1.5-2.5) Alkaline Phosphatase 88 U/L (45-117) Aspartate Amino Transf (AST/SGOT) 20 U/L (15-37) Alanine Aminotransferase (ALT/SGPT) 24 U/L (12-78) Total Bilirubin 1.2 MG/DL (0.2-1.0) Sodium Level 159 MEQ/L (136-145) Potassium Level 2.5 MEQ/L (3.5-5.1) Chloride Level 122 MEQ/L (98-107) Carbon Dioxide Level 27.0 MEQ/L (21.0-32.0) Anion Gap 10 MEQ/L (5-15) Estimat Glomerular Filtration Rate 55 ML/MIN (>89) Result Diagram: 10/22/17 0559 10/22/17 0559 Microbiology Microbiology Date/Time Source Procedure Growth Status 10/20/17 00:08 Blood Peripheral Aerobic Blood Culture - Preliminary NO GROWTH IN 1 DAY Resulted 10/20/17 00:08 Blood Peripheral Anaerobic Blood Culture - Preliminary NO GROWTH IN 1 DAY Resulted 10/20/17 00:00 Blood Peripheral Aerobic Blood Culture - Preliminary NO GROWTH IN 1 DAY Resulted 10/20/17 00:00 Blood Peripheral Anaerobic Blood Culture - Preliminary NO GROWTH IN 1 DAY Resulted Assessment and Plan Disease Oriented Problem List: (1) Alzheimer's dementia with behavioral disturbance (2) Generalized weakness Symptom Scale: (1) Debility 0-10 Scale: Unable to quantify (2) Confusion 0-10 Scale: Unable to quantify Comment: Hx of alzheimers. . Pertinent Non-Medical Issues Psychosocial:Patient was born and raised in [place], patient was to his Pat for 32 years, they just recently on 10/01/17, per patient's the patient had become more demanding and unreasonable over the past year, she stated she filed for divorce in April due to his unreasonable behavior. Unfortunately the patient was just recently diagnosed with Alzheimer's dementia in July of this year in midst of the divorce process. 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 Spiritual: Mosque. Legal: Per the patient's PCP documentation the patient has expressed mistrust for his ex , he has an estranged son from a previous relationship and has previously verbalized that he does not want his son involved in any decision making or inheritance, the patient has also declined to file any POA/living will paperwork in the office. Patient has no available advanced directives completed. Ethical issues impacting care: None known. Important Contacts Brandie Ac (): [phone], . Prognosis Patient is an 87 year old male with a past medical history significant for Alzheimer's dementia with behavioral disturbances, as well as kyphosis, scoliosis, blepharospasm, squamous cell carcinoma of the skin. Patient currently in respiratory failure, sepsis. Prognosis is poor. . Code Status: No Code Plan * Legal decision maker: Per psychiatry, patient does not have decision-making capacity to participate in medical decision making at this time.Patient has never completed any written advanced directives. Patient Milena lyn, pt' sister did not want to be healthcare surrogate. Pt's ex - will be proxy. Despite separation, she still has been taking care of patient. * CODE STATUS: DNR * GOALS: Transition to comfort measures only. * * SYMPTOM MANAGEMENT: * ==Agitation Secondary to Alzheimer's dementia, unfamiliar environment, and current decline * ==Dyspnea- decompensated diastloic heart failure,sepsis dilaudid prn will be available. * == Consult Hospice. . Attestation To help prompt me to consider important information that might be impacting today's encounter and assessment, information from prior notes written by myself or my colleagues may have been "brought forward" into today's note. My signature on this note, however, is an attestation that I personally performed the exam, history, and/or decision-making noted today, and, unless otherwise indicated, the interactions with patient, family, and staff as well as the review of records all occurred today. I also attest that the listed assessment and stated plan reflect my best clinical judgment today based on the combination of historical information, prior notes, and today's exam/ interactions. When time spent is documented, it refers only to time spent today by the signer, or if indicated, combined time spent today by collaborating physician/nurse practitioner. Boom Arthur MD Oct 22, 2017 10:16
[2017-10-22] MEDS ORDERED: HYDROmorphone HCL PF 2 MG/ML VIAL IV PUSH PRN ×2 (10:45)
--- NOTE | 2017-10-22 11:00 | HHI.FPPN ---
Subjective Remarks Overnight continued to have difficulty breathing. Patient unable to be aroused for questioning regarding symptoms. Per RN report oxygen status the same throughout the night without either improvement or decompensation. (Rivas Coon MD) Objective Vitals Vital Signs Date Time Temp Pulse Resp B/P (MAP) Pulse Ox O2 Delivery O2 Flow Rate FiO2 10/22/17 10:28 95 High Flow Nasal Cannula 30.00 100 10/22/17 09:46 124 119/67 10/22/17 06:00 108 10/22/17 05:08 123 62/42 10/22/17 04:00 107 10/22/17 04:00 97.5 107 17 84/57 (66) 91 10/22/17 03:45 91 Bi-Pap 100 10/22/17 03:35 93 100 10/22/17 02:00 108 10/22/17 00:45 96 88/52 10/22/17 00:00 102 10/22/17 00:00 97.6 102 32 113/66 (82) 92 10/21/17 22:30 115 120/72 10/21/17 22:00 120 10/21/17 22:00 120 10/21/17 22:00 120 141/70 10/21/17 21:15 93 High Flow Nasal Cannula 30.00 100 10/21/17 20:43 94 133/61 10/21/17 20:15 90 Non-Rebreather 100 10/21/17 20:00 97.4 130 19 110/66 (81) 90 10/21/17 20:00 130 10/21/17 20:00 90 Simple Mask 10.00 10/21/17 19:30 85 Non-Rebreather 15.00 10/21/17 16:00 98.7 91 18 113/59 (77) 95 10/21/17 16:00 96 10/21/17 14:00 110 10/21/17 12:00 116 10/21/17 12:00 98.7 116 21 151/74 (99) 95 I/O 10/21/17 10/21/17 10/21/17 10/22/17 10/22/17 10/22/17 07:00 15:00 23:00 07:00 15:00 23:00 Intake Total 450 ml 100 ml 1004 ml Output Total 700 ml 475 ml Balance -250 ml 100 ml 529 ml Intake Oral 0 ml IV Total 450 ml 100 ml 1004 ml Output Urine Total 700 ml 475 ml # Bowel Movements 0 (Rivas Coon MD) Result Diagram: 10/22/1759 10/22/1759 Objective Remarks GENERAL: Elderly gentleman lying in bed unresponsive on nonrebreather mask. SKIN: Warm and dry. No rash. CARDIOVASCULAR: Irregular rate with irregular rhythm. No murmur. RESPIRATORY: Clear to auscultation anteriorly. Breathing raspy with subtle retractions. GASTROINTESTINAL: Abdomen soft, nondistended. Patient does not grimace on palpation. MUSCULOSKELETAL: No cyanosis or edema. Restraints placed on all 4 extremities. NEURO/PSYCH: Patient unarousable at this time. (Rivas Coon MD) A/P Assessment and Plan 87-year-old male with history of Alzheimer's dementia with behavioral disturbances presents with: Discharge Planning To hospice today (Rivas Coon MD) Attending Attestation Patient seen and examined. Case reviewed and discussed with the resident team. Agree with plan of care as discussed with me and documented in the resident note. (Saul Hi MD) Problem List: (1) Respiratory distress ICD Codes: R06.03 - Acute respiratory distress Status: Acute Plan: Patient with acute episode of respiratory distress secondary to pulmonary edema VS. aspiration episode meeting sepsis criteria. Patient was transferred to ICU and is currently under private investigator surveillance care. After family discussion by palliative care, patient's wishes in this situation given poor prognosis would be hospice per ex- (current decision maker) - Transfer to hospice facility arranged Currently on face mask. Currently, patient is DNR and no intubation per the patients wishes as discussed with the patient on many occasions with ex . Medications: -Flagyl, azithromycin, and Zosyn (10/19-) (2) Altered mental state ICD Codes: R41.82 - Altered mental status, unspecified Status: Acute Plan: Per nursing, altered mental status overnight 10/19. Patient combative. Unable to be redirected. Differential diagnosis: * Alzheimer's dementia versus delirium versus sepsis Imaging: * Head CT 10/16: No change since prior exam. Aging brain with atrophy. No evidence of acute infarct, hemorrhage, mass or edema. * Repeat head CT ordered stat on 10/19 -diffuse cerebral atrophy. Severe periventricular and subcortical white matter small vessel ischemic changes bilaterally. No acute infarct, hemorrhage, or mass effect or extra-axial fluid collections. Orders: * Bedside glucose ordered on 10/19 in a.m. - 76 * UA ordered on 10/19 in a.m. -trace ketones * Speech therapy consulted for swallow evaluation 10/22: Pure, pudding consistency thickened liquids. * Speech therapy consulted for swallow evaluation 10/19: Patient uncooperative. Medications: * NS 1,000 ml at 120 ml/hr. * Memantine 5 mg daily PO. * Aricept 5 mg daily PO. * Risperidone 0.5 BID PO. * Depakote 125mg BID PO. (3) Alzheimer's dementia with behavioral disturbance ICD Codes: G30.8 - Other Alzheimer's disease; F02.81 - Dementia in other diseases classified elsewhere with behavioral disturbance Status: Chronic Plan: Patient with history of Alzheimer's dementia. Previously evaluated by psychiatry, Dr. Urena. Placed on soft restraints. Required Haldol. Patient unarousable this morning. Orders: * Psychiatry consulted; recommended starting Risperdal 0.25 - 0.5 mg BID, Namenda, and Aricept. * To be discharged to hospice facility PCP, Dr. 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 He has been set up with [facility] and they offered to provide him with caregivers also and he has declined. He and have been given extensive info on [facility] but patient refuses to go anywhere but home... I believe that patient is not safe to live alone at home--on his eval by case management at home he had several space heaters unattended (his heat had broken), he couldn't open containers for food without help, left the stove unattended during evaluation, etc. He has had numerous falls, is unsteady on his feet and frequently doesn't use his assistive devices. He feels that he can drive ( despite not being able to hold his head up to see out the window). Would recommend at least [facility] placement or 24 hour care at home. (4) Generalized weakness ICD Codes: R53.1 - Weakness Status: Acute Plan: Physical deconditioning (Rivas Coon MD) Problem Qualifiers (1) Alzheimer's dementia with behavioral disturbance: Qualified Codes: G30.9 - Alzheimer's disease, unspecified; F02.81 - Dementia in other diseases classified elsewhere with behavioral disturbance Rivas Coon MD Oct 22, 2017 11:00 Saul Hi MD Oct 24, 2017 09:19
[2017-10-22] MEDS ORDERED: LORazepam 2 MG/ML VIAL IV PUSH PRN ×2 (11:15)
--- NOTE | 2017-10-22 14:51 | PQ ---
Physician Query Response Document PATIENT: LIBIA NEVILLE : 1930 ADMIT DATE: 10/19/2017 4:43 PM DISCH DATE: RESPONDING PROVIDER #: [email or web address] QUERY TEXT: CHF Acuity and Type DIASTOLIC Congestive Heart Failure is documented in the Medical Record. Please document the type and acuity (includes probable or suspected) Such as: Acuity: -- Acute -- Chronic -- Acute on chronic -- Other, please specify Also please document the underlying cause of the CHF (includes probable or suspected) The patient's Clinical Indicators include: Diminished breath sound /16 w crackles BNP 801 LASIX IV GIVEN imaging studies show pulmonary vascul ar congestion tachycardia to 140s and respiratory distress Query created by: Luisa Mcclure on 10/22/2017 1:49 PM RESPONSE TEXT: Acute on chronic diastolic heart failure Electronically signed by: Thao Ruffin MD 10/22/2017 2:48 PM
--- NOTE | 2017-10-22 16:30 | HHI.CCPN ---
Subjective Remarks/Hospital Course Elderly, frail man with aggravated dementia has developed tachycardia to 140s and respiratory distress. CXR demonstrates heart failure as does clinical exam. He is not edematous peripherally and this appears to be sudden rate related diastolic heart failure. I have reviewed the Palliative Care notes and appreciate the chronicity of his deterioration, apparently accelerating recently. Remains on 10 L oxygen by facemask. Good urine output with Lasix. Chest x-ray continued shock pulmonary vascular congestion and bilateral pleural effusions. Patient's ex - 3 weeks ago-states the patient would not want to be intubated or have CPR as has been discussed on multiple occasions. She is willing to sign paper work. Will discuss legality with case management, but patient is appropriate for DNR 10/22 Patient is going hospice today, [facility] will sign off Objective Vital Signs Date Time Temp Pulse Resp B/P (MAP) Pulse Ox O2 Delivery O2 Flow Rate FiO2 10/22/17 14:00 120 10/22/17 12:00 98.0 20 128/61 (83) 93 10/22/17 10:28 High Flow Nasal Cannula 30.00 100 Intake and Output 10/22/17 10/22/17 10/23/17 08:00 16:00 00:00 Intake Total 1004 ml 257 ml Output Total 475 ml 325 ml Balance 529 ml -68 ml Result Diagram: 10/22/17 0559 10/22/17 0559 Other Results Laboratory Tests Test 10/22/17 02:19 Blood Gas Puncture Site LT RADIAL Blood Gas Patient Temperature 98.6 Blood Gas HCO3 27 mmol/L (22-26) Blood Gas Base Excess 4.0 mmol/L (-2-2) Blood Gas Oxygen Saturation 88 % (90-100) Arterial Blood pH 7.53 (7.380-7.420) Arterial Blood Partial Pressure CO2 32 mmHg (38-42) Arterial Blood Partial Pressure O2 54 mmHg (61-120) Arterial Blood Oxygen Content 19.1 Vol % (12.0-20.0) Arterial Blood Carboxyhemoglobin 1.0 % (0-4) Arterial Blood Methemoglobin 0.8 % (0-2) Blood Gas Hemoglobin 15.5 G/DL (12.0-16.0) Oxygen Delivery Device HFNC Blood Gas Liter Flow 30 L/M Blood Gas Inspired Oxygen 100 % Objective Remarks Head: Normal, eyr lids closed. Pupils 2 mm, reactive. Neck: Chronically stiff, airway patent. Lungs: Bilateral crackles. No wheezes Heart: Tachycardia, neck veins not distended. Abdomen: Soft nontender, no guarding. Extremities: Poor turgor, well perfused. Neuro: Moves 4 limbs weakly, opens eyes to painful stimuli. A/P Assessment and Plan Assessment: 1. Diastolic heart failure, rate exacerbated. 2. Pulmonary edema. 3. Agitated dementia. Plan: - 10/22 Patient is going hospice today, [facility] will sign off Thao Ruffin MD Oct 22, 2017 16:30
--- NOTE | 2017-10-22 17:23 | HHI.DS ---
Discharge Summary Admission Date Oct 19, 2017 at 4:43 pm Discharge Date: Oct 22, 2017 Admitting Diagnosis generalized weakness (1) Respiratory distress Diagnosis: Secondary ICD Codes: R06.03 - Acute respiratory distress Status: Acute (2) Altered mental state Diagnosis: Principal ICD Codes: R41.82 - Altered mental status, unspecified Status: Acute (3) Alzheimer's dementia with behavioral disturbance Diagnosis: Principal ICD Codes: G30.8 - Other Alzheimer's disease; F02.81 - Dementia in other diseases classified elsewhere with behavioral disturbance Status: Chronic (4) Generalized weakness Diagnosis: Principal ICD Codes: R53.1 - Weakness Status: Acute Brief History 87-year-old male with history of dementia and confusion. Recently hospitalized for 6 days in July. At that time he was diagnosed with Alzheimer's dementia with behavioral disturbance. The patient currently being interviewed with ex- in the room who still resides with the patient. She states the patient has been very combative and unpleasant. She has filed for divorce 6 months ago. Per the ex- and PCP Dr. 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 He has been set up with [facility] and they offered to provide him with caregivers also and he has declined. He and his exwife have been given extensive info on [facility] but patient refuses to go anywhere but home. During last hospitalization, pt was determined to have dementia by the psychiatrist, however in the office he scores 29/30 on MMS testing, just makes poor decisions. The ex- states that the patient refuses all help. He refuses to file POA/living will paperwork. This morning, he fell around 1-2 AM per the ex-. She states he couldn't get up ("he can never get up.") and she called 911 who brought him here. Upon direct questioning, the patient denies any pain or problems. ROS negative x 10 including pain, cp, n/v/d, sob, fever, chills. He initially states, "I am home," but is easily redirected to acknowledge he is in the hospital. CBC/BMP: 10/22/17 0559 10/22/17 0559 Significant Findings Laboratory Tests Test 10/19/17 23:17 10/20/17 00:00 10/20/17 04:55 10/20/17 04:58 White Blood Count 3.9 TH/MM3 (4.0-11.0) 3.0 TH/MM3 (4.0-11.0) Platelet Count 140 TH/MM3 (150-450) 109 TH/MM3 (150-450) Neutrophils (%) (Auto) 72.3 % (16.0-70.0) Lymphocytes # (Auto) 0.9 TH/MM3 (1.0-4.8) Prothrombin Time 11.8 SEC (9.8-11.6) Troponin I 0.07 NG/ML (0.02-0.05) 0.06 NG/ML (0.02-0.05) Mean Corpuscular Volume 102.9 FL (80.0-100.0) Mean Corpuscular Hemoglobin Concent 31.4 % (32.0-36.0) Creatinine 0.58 MG/DL (0.60-1.30) Calcium Level 8.0 MG/DL (8.5-10.1) Potassium Level 3.4 MEQ/L (3.5-5.1) Chloride Level 122 MEQ/L (98-107) Carbon Dioxide Level 15.9 MEQ/L (21.0-32.0) Test 10/20/17 10:35 10/20/17 11:13 10/20/17 13:38 10/22/17 02:19 B-Type Natriuretic Peptide 801 PG/ML (0-100) Blood Gas Oxygen Saturation 87 % (90-100) 88 % (90-100) Troponin I 0.06 NG/ML (0.02-0.05) Blood Gas HCO3 27 mmol/L (22-26) Blood Gas Base Excess 4.0 mmol/L (-2-2) Arterial Blood pH 7.53 (7.380-7.420) Arterial Blood Partial Pressure CO2 32 mmHg (38-42) Arterial Blood Partial Pressure O2 54 mmHg (61-120) Test 10/22/17 05:59 Platelet Count 109 TH/MM3 (150-450) Blood Urea Nitrogen 40 MG/DL (7-18) Total Protein 5.3 GM/DL (6.4-8.2) Albumin 2.0 GM/DL (3.4-5.0) Calcium Level 7.7 MG/DL (8.5-10.1) Phosphorus Level 1.7 MG/DL (2.5-4.9) Total Bilirubin 1.2 MG/DL (0.2-1.0) Sodium Level 159 MEQ/L (136-145) Potassium Level 2.5 MEQ/L (3.5-5.1) Chloride Level 122 MEQ/L (98-107) Estimat Glomerular Filtration Rate 55 ML/MIN (>89) Imaging Last Impressions Chest X-Ray 10/21/17 0000 Signed Impressions: Service Date/Time: Saturday, October 21, 2017 11:22 - CONCLUSION: Stay stable perihilar vascular congestion with pleural effusions. No visible pneumothorax. Thomas France MD Head CT 10/20/17 0000 Signed Impressions: Service Date/Time: Friday, October 20, 2017 08:36 - CONCLUSION: 1. Diffuse cerebral atrophy. 2. Severe periventricular and subcortical white matter small vessel ischemic changes bilaterally. 3. No acute infarct, acute hemorrhage, mass effect or extra-axial fluid collections. Dinesh Del Toro MD Cervical Spine CT 10/16/17 1234 Signed Impressions: Service Date/Time: Monday, October 16, 2017 14:44 - CONCLUSION: 1. No acute fracture or subluxation. 2. Redemonstration of multilevel degenerative spondylosis most prominently at C3-6. Anthony Cooper MD PE at Discharge GENERAL: Elderly gentleman lying in bed unresponsive on nonrebreather mask. SKIN: Warm and dry. No rash. CARDIOVASCULAR: Irregular rate with irregular rhythm. No murmur. RESPIRATORY: Clear to auscultation anteriorly. Breathing raspy with subtle retractions. GASTROINTESTINAL: Abdomen soft, nondistended. Patient does not grimace on palpation. MUSCULOSKELETAL: No cyanosis or edema. Restraints placed on all 4 extremities. NEURO/PSYCH: Patient unarousable at this time. Hospital Course Patient with advanced dementia and behavioral disturbance admitted after a fall at home, found to be globally week. Hospital stay pending placement in rehab facility. During hospital stay developed respiratory distress with hypoxia. After discussion with family (recently of 30 years is decision maker) it was decided the patient would go to a hospice facility since that is what he likely would have wanted in this situation were he at his baseline level of functioning. Pt Condition on Discharge: Stable Discharge Disposition: Hospice/Med Facility Discharge Instructions DIET: Follow Instructions for: As Tolerated, No Restrictions Speech Therapy-Diet Recommends: Pureed, Pudding Thickened Liquids Activities you can perform: Continue Bedrest Rivas Coon MD Oct 22, 2017 5:23 pm
== END 2017-10-22 15:59 | disposition hospice, inpatient (51) | DRG 56 ==
LOC: NEPE 12:23 → NEDA 16:48 → NEPHCDU 19:26 → OBSVTOIN 10-19 16:43 → N03B 10-20 01:08
PROVIDERS: ADMIT Family Medicine; ATTEND Family Medicine
DX: G30.9 Alzheimer's disease, unspecified (principal); I50.33 Acute on chronic diastolic (congestive) heart failure; A41.9 Sepsis, unspecified organism; E87.0 Hyperosmolality and hypernatremia; F02.81 Dementia in other diseases classified elsewhere, unspecified severity, with behavioral disturbance; R06.03 Acute respiratory distress; I48.91 Unspecified atrial fibrillation; Z78.1 Physical restraint status; R53.1 Weakness; R26.81 Unsteadiness on feet; Z91.81 History of falling; Z85.828 Personal history of other malignant neoplasm of skin; Z92.3 Personal history of irradiation; Z87.891 Personal history of nicotine dependence; E07.9 Disorder of thyroid, unspecified; R74.8 Abnormal levels of other serum enzymes; M41.9 Scoliosis, unspecified; Z66 Do not resuscitate; Z51.5 Encounter for palliative care
CPT/HCPCS: 36600; 70450; 71010; 72125; 76937; 80048; 80053; 81001; 82140; 82247; 82550; 82552; 82565; 82607; 82805; 82948; 83605; 83735; 83880; 84100; 84443; 84484; 85025; 85027; 85610; 85730; 87040; 93005; 94002; 96360; 96361; 96372; G0378; G8987-GP; G8988-GP; G8996-GN; G8997-GN; G8998-GN; J0456; J1630; J1644; J1940; J2370; J2543; J3480; J3486; J7030; J7050; J7060